=== PATIENT | female | born 1975 | race Caucasian/White ===

== ENCOUNTER 2018-01-31 13:25 | Inpatient (IN) ==
[2018-01-31 14:02] LABS: Bilirubin,Urine Negative (Negative); Blood,Urine Moderate (Negative); Clarity,Urine Clear (Clear); Color,Urine Yellow (Yellow); Glucose,Urine (UA) >=1000 mg/dL (Normal); Ketones,Urine >=160 mg/dL (Negative); Leukocyte Esterase,Urine Negative (Negative); Nitrite,Urine Negative (Negative); PH,Urine 5.5 pH Units (5.0-8.0); Protein,Urine >=300 mg/dL (Neg-Trace); Specific Gravity,Urine > 1.030 (1.010-1.025); Urobilinogen,Urine Normal (Normal)
[2018-01-31 14:04] LABS: Bacteria,Urine Few per hpf (None-Few); Hyaline Casts,Urine None Seen per lpf (None-Few); RBC,Urine 0-3 per hpf (0-3); Squamous Epithelial Cell,Urine Many per lpf (None-Few)
[2018-01-31] MEDS ORDERED: 0.9 % Sodium Chloride 1,000 ML IVC ONE ×2 (15:05→16:09)
[2018-01-31] MEDS ORDERED: *HR* HYDROcodone/Acet 5/325 mg TABLET PO ONE (15:05)
[2018-01-31] MEDS ORDERED: Ondansetron 4 MG/2 ML VIAL IVP ONE (15:05)
--- NOTE | 2018-01-31 15:08 | Emergency Department Note ---
Disposition Clinical Impression: Elevated platelet count, Leukocytosis, Pancreatitis, Diabetes Disposition: Admitted As Inpatient Condition: Fair Referrals: Ami Romero MD [Primary Care Provider] - Forms: ED Satisfaction Letter, Work/School Release Time of Disposition: 18:08 Abdominal Pain HPI - General Chief Complaint: ED Abdominal Pain Stated Complaint: abd pain Time Seen by Provider: 01/31/18 14:57 Source: patient Mode of arrival: ambulatory Limitations: no limitations Nursing Notes Reviewed: Yes Vital Signs Reviewed: Yes - History of Present Illness HPI Narrative: Patient presents emergency room with 3 days worth of nausea vomiting or abdominal pain. Patient has had this happen multiple times in the past secondary to chronic pancreatitis. Patient was a heavy drinker years ago but has not drank in over 5 years. Denies any recent illnesses fevers or chills. Currently denying chest pain, shortness of breath, headache or vision change. No diarrhea with the symptoms here today. She does not have any sick contacts. Pt Subjective Complaint: abdominal pain Onset (ago): day(s) Consistency: constant Location: epigastric Pain Severity: moderate Pain Scale: 10 Quality: aching Radiation: none Migration to: no migration Improves with: nothing Worsens with: other Associated symptoms: Reports: denies other symptoms Treatments prior to arrival: none - Related Data Home Medications Medication Instructions Recorded Confirmed Atorvastatin Calcium [Lipitor] 80 mg PO QPM 03/04/15 03/04/15 Cholecalciferol (Vitamin D3) 5,000 unit PO TID 03/04/15 03/04/15 [Vitamin D3] Docosahexanoic Acid/Epa [Fish Oil 1 each PO QAM 03/04/15 03/04/15 Concentrate Softgel] Empagliflozin [Jardiance] 10 mg PO QAM 03/04/15 03/04/15 Ezetimibe [Zetia] 10 mg PO QPM 03/04/15 03/04/15 Fenofibrate [Lofibra] 145 mg PO QPM 03/04/15 03/04/15 Gabapentin [Neurontin] 300 mg PO TID 03/04/15 03/04/15 Glimepiride [Amaryl] 2 mg PO QAM 03/04/15 03/04/15 HYDROcodone/Acet 5/325 mg [Happy 1 tab PO TID PRN 03/04/15 03/04/15 5-325 mg] LORazepam [Ativan] 0.5 mg PO BID PRN 03/04/15 03/04/15 Linagliptin [Tradjenta] 5 mg PO QAM 03/04/15 03/04/15 Lisinopril [Zestril] 20 mg PO QAM 03/04/15 03/04/15 Metoprolol [Lopressor] 50 mg PO BID 03/04/15 03/04/15 Mirtazapine [Remeron] 15 mg PO HS 03/04/15 03/04/15 Multivitamin/Iron/Folic Acid 1 each PO QAM 03/04/15 03/04/15 [Centrum Complete Multivit Tab] Omeprazole [PriLOSEC] 20 mg PO QAM 03/04/15 03/04/15 Venlafaxine HCl [Effexor Xr] 75 mg PO DAILY 03/04/15 03/04/15 Ziprasidone HCl [Geodon] 40 mg PO QAM 03/04/15 03/04/15 Ziprasidone HCl [Geodon] 60 mg PO 03/04/15 03/04/15 metFORMIN [Glucophage] 2,000 mg PO QPM 03/04/15 03/04/15 Previous Rx's Medication Instructions Recorded SUMAtriptan succinate [Imitrex] 25 mg PO PRN PRN #3 tablet 08/22/17 Allergies Allergy/AdvReac Type Severity Reaction Status Date / Time No Known Drug Allergies Allergy See Verified 03/04/15 10:49 Comments All systems ED: reviewed and negative except as stated. Review of Systems: As Per HPI Constitutional: Denies: fever, chills, weakness Cardiovascular: Denies: chest pain, palpitations, dyspnea on exertion, orthopnea Respiratory: Denies: cough, dyspnea, wheezes, hemoptysis Gastrointestinal: Reports: abdominal pain, nausea, vomiting. 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 Absent: scleral icterus, conjunctival injection, nystagmus - ENT ENT exam: normal exam, normal oropharynx, mucous membranes moist - Neck Neck exam: Present: normal inspection, full ROM, trachea midline - Chest Chest inspection: Present: normal inspection, symmetric chest wall rise - Respiratory Respiratory exam: Present: normal lung sounds bilaterally. Absent: respiratory distress, accessory muscle use - Cardiovascular Cardiovascular exam: Present: normal rhythm, tachycardia, normal heart sounds - Abdominal Exam Abdominal exam: Present: soft, tenderness, normal bowel sounds. Absent: Non- Tender, distention, guarding, rebound, rigidity - Extremities Exam Extremities exam: Present: normal inspection, full ROM, normal capillary refill. Absent: tenderness, pedal edema - Back Exam Back exam: Present: normal inspection, full ROM - Neurological Exam Neurological exam: Present: alert, oriented X3, CN II-XII intact, normal gait - Skin Skin exam: Present: warm, dry, intact, normal color Course Course Narrative: Patient seen and examined the time of arrival. See history of present illness. 42-year-old female presents to the emergency room with complaint of diffuse abdominal pain as well as nausea vomiting. Patient's had this happen multiple times the past when she has a pancreatitis flare up. She does describe a histor y of heavy alcohol abuse up until 5 years ago. She has not drank since then. She does not know any acute exacerbating factors. Currently she is denying fevers, chills, headache, vision changes, chest pain, shortness of breath. Denies any diarrhea. Patient is describing consistent symptoms with her previous diagnosis of pancreatitis. Labs: CBC chemistry lipase as well as liver function testing will be collected this time. EKG will also be collected secondary to a on description of a twinging sensation across her anterior chest wall yesterday. She has not had any symptoms like that since then. Patient is otherwise clinically stable. Vital signs are reviewed and are normal outside of tachycardia. Does not have any acute signs respiratory distress or other symptoms at this point. Patient will be monitored in emergency room the symptomatic control is completed disposition is determined. Otherwise the patient is in no distress. She is requesting to be discharged home if her labs and symptoms can be controlled. Physical exam shows clear lungs heart regular but tachycardic. Abdomen is soft with no point tenderness guarding or rigidity. She has no CVA tenderness. She does not describe any epigastric discomfort at this time. She has no cervical lymphadenopathy. Oropharynx is patent her trachea is midline and mucous membranes are moist. She denies any vaginal discharge bleeding or burning with urination. CBC chemistry and laboratory to be completed along with urinalysis and urine test. - Reevaluation(s) Reevaluation #1: Patient has a decreased sodium, decreased bicarbonate and an elevated glucose. Concern is noted for possible dehydration and diabetic ketoacidosis. Patient is there are had either of these 2 issues in the past. Will monitor closely and treat symptoms Time: 15:57 Reevaluation #2: At 1615 patient was concerning for possible infectious etiology. She has a significantly elevated white blood cell count, acidemia based on VBG and multiple electrolyte derangements. She does not meet criteria for diabetic ketoacidosis secondary to the normal serum ketones. Patient will be provided with 2 L of fluid as well as first dose of antibiotics covering for intra- abdominal pathology. Her lipase was greater than 1800. Is never been that high in the past. Disposition will be admission versus transfer dependent upon the findings on CT with IV contrast of the abdomen. Chest x-ray stable. Time: 16:22 Reevaluation #3: The hospitalist Dr. Lovett and I reviewed the case. He agreed with the patient's medical intervention management. Did recommend placing her on Lovenox and starting a DKA protocol secondary to the glucose with family that she could progress into that secondary to the pancreatitis. Also give the patient is single dose of aspirin covering for antiplatelet. Patient will be admitted for symptomatic control. No other acute etiology noted this time. Hematology Dr. Ramsay was contacted as well and agree with the projected management admission. Consult was placed to hematology at this time. Patient will be admitted for continuation of care and management. She will be monitoring emergency room until admission process is completed. 35 minutes of critical care provider the patient's treatment course secondary to multidisciplinary medical intervention and symptomatic management. Time: 18:07 Vital Signs Temperature 98.4 F 01/31/18 13:41 Pulse Rate 108 01/31/18 13:41 Respiratory Rate 16 01/31/18 13:41 Blood Pressure 167/100 01/31/18 13:41 O2 Sat by Pulse Oximetry 98 01/31/18 13:41 Temperature 99.9 F H 01/31/18 15:18 Pulse Rate 108 01/31/18 17:24 Respiratory Rate 20 01/31/18 17:24 Blood Pressure 135/68 01/31/18 17:24 O2 Sat by Pulse Oximetry 99 01/31/18 17:24 Oxygen Delivery Oxygen Delivery Room Air Abdominal Pain - MDM Narrative Medical decision making narrative: abdominal pain, chronic pancreatitis - Medical Records Medical records reviewed: Yes I reviewed the patient's medical records. - Lab Data Lab results reviewed: Yes I reviewed the patient's lab results. Result diagrams: 01/31/18 14:36 01/31/18 14:36 Lab Results 01/31/18 01/31/18 01/31/18 Range/Units 13:47 13:47 14:36 WBC 32.2 H* (4.3-11.1) K/mcL RBC 5.58 H (3.82-4.97) M/mcL Hgb 16.4 H (11.5-15.4) g/dL Hct 45.8 H (35.3-44.9) % MCV 82.1 L (83.0-100.0) fL MCH 29.4 (28.0-33.3) pg MCHC 35.8 H (31.6-35.5) g/dL RDW 15.1 H (11.5-14.5) % Plt Count 1470 H (140-400) K/mcL MPV 8.5 L (9.4-12.4) fL Immature Gran % 1.7 (0-4) % Seg Neutrophils % 72.2 % Lymphocytes % 16.6 % Monocytes % 9.0 % Eosinophils % 0.1 % Basophils % 0.4 % Neutrophils # 23.3 H (1.6-8.9) K/mcL Lymphocytes # 5.4 H (0.6-4.6) K/mcL Monocytes # 2.9 H (0.0-1.3) K/mcL Eosinophils # 0.0 (0.0-0.6) K/mcL Basophils # 0.1 (0.0-0.2) K/mcL Platelet Estimate Marked Increase H (Normal) VBG pH (7.32-7.42) pH Units VBG pCO2 (41-51) mmHg VBG pO2 (25-50) mmHg VBG HCO3 (21-27) mEq/L Sodium (136-145) mEq/L Potassium (3.5-5.1) mEq/L Chloride (98-107) mEq/L Carbon Dioxide (23-29) mEq/L BUN (6-20) mg/dL Creatinine (0.60-1.20) mg/dL Est GFR ( Amer) (> 60) Est GFR (Non-Af Amer) (> 60) BUN/Creatinine Ratio (6-26) Glucose (70-105) mg/dL Calculated Osmolality (280-300) Lactic Acid (0.5-2.2) mmol/L Calcium (8.6-10.3) mg/dL Total Bilirubin (0.3-1.0) mg/dL Direct Bilirubin (0.0-0.2) mg/dL Indirect Bilirubin (0.0-1.2) mg/dL AST (13-39) Units/L ALT (7-52) Units/L Alkaline Phosphatase (34-104) Units/L Serum Total Protein (6.4-8.9) g/dL Albumin (3.5-5.7) g/dL Globulin (2.4-3.5) g/dL Albumin/Globulin Ratio (1.1-2.2) Lipase (11-82) Units/L Beta-Hydroxybutyric Acd (0.02-0.27) mmol/L Urine Color Yellow (Yellow) Urine Clarity Clear (Clear) Urine pH 5.5 (5.0-8.0) pH Units Ur Specific Tarpley > 1.030 H (1.010-1.025) Urine Protein >=300 H (Neg-Trace) mg/dL Urine Glucose (UA) >=1000 H (Normal) mg/dL Urine Ketones >=160 H (Negative) mg/dL Urine Blood Moderate H (Negative) Urine Nitrite Negative (Negative) Urine Bilirubin Negative (Negative) Urine Urobilinogen Normal (Normal) mg/dL Ur Leukocyte Esterase Negative (Negative) Urine Microscopic RBC 0-3 (0-3) per hpf Urine Microscopic WBC 5-15 H (0-3) per hpf Ur Squamous Epith Cells Many H (None-Few) per lpf Urine Bacteria Few (None-Few) per hpf Hyaline Casts None Seen (None-Few) per lpf Ur Culture Indicated? NO (NO) Urine Test Negative (Negative) 01/31/18 01/31/18 01/31/18 Range/Units 14:36 16:00 16:13 WBC (4.3-11.1) K/mcL RBC (3.82-4.97) M/mcL Hgb (11.5-15.4) g/dL Hct (35.3-44.9) % MCV (83.0-100.0) fL MCH (28.0-33.3) pg MCHC (31.6-35.5) g/dL RDW (11.5-14.5) % Plt Count (140-400) K/mcL MPV (9.4-12.4) fL Immature Gran % (0-4) % Seg Neutrophils % % Lymphocytes % % Monocytes % % Eosinophils % % Basophils % % Neutrophils # (1.6-8.9) K/mcL Lymphocytes # (0.6-4.6) K/mcL Monocytes # (0.0-1.3) K/mcL Eosinophils # (0.0-0.6) K/mcL Basophils # (0.0-0.2) K/mcL Platelet Estimate (Normal) VBG pH 7.30 L (7.32-7.42) pH Units VBG pCO2 22 L (41-51) mmHg VBG pO2 110 H (25-50) mmHg VBG HCO3 11 L (21-27) mEq/L Sodium 124 L (136-145) mEq/L Potassium 5.1 (3.5-5.1) mEq/L Chloride 93 L (98-107) mEq/L Carbon Dioxide 10 L* (23-29) mEq/L BUN 11 (6-20) mg/dL Creatinine 0.88 (0.60-1.20) mg/dL Est GFR ( Amer) > 60 (> 60) Est GFR (Non-Af Amer) > 60 (> 60) BUN/Creatinine Ratio 13 (6-26) Glucose 425 H (70-105) mg/dL Calculated Osmolality 276 L (280-300) Lactic Acid (0.5-2.2) mmol/L Calcium 9.3 (8.6-10.3) mg/dL Total Bilirubin 0.4 (0.3-1.0) mg/dL Direct Bilirubin 0.1 (0.0-0.2) mg/dL Indirect Bilirubin 0.3 (0.0-1.2) mg/dL AST 17 (13-39) Units/L ALT 20 (7-52) Units/L Alkaline Phosphatase 89 (34-104) Units/L Serum Total Protein 10.3 H (6.4-8.9) g/dL Albumin 4.2 (3.5-5.7) g/dL Globulin 6.1 H (2.4-3.5) g/dL Albumin/Globulin Ratio 0.7 L (1.1-2.2) Lipase > 1800 H (11-82) Units/L Beta-Hydroxybutyric Acd 0.19 (0.02-0.27) mmol/L Urine Color (Yellow) Urine Clarity (Clear) Urine pH (5.0-8.0) pH Units Ur Specific Tarpley (1.010-1.025) Urine Protein (Neg-Trace) mg/dL Urine Glucose (UA) (Normal) mg/dL Urine Ketones (Negative) mg/dL Urine Blood (Negative) Urine Nitrite (Negative) Urine Bilirubin (Negative) Urine Urobilinogen (Normal) mg/dL Ur Leukocyte Esterase (Negative) Urine Microscopic RBC (0-3) per hpf Urine Microscopic WBC (0-3) per hpf Ur Squamous Epith Cells (None-Few) per lpf Urine Bacteria (None-Few) per hpf Hyaline Casts (None-Few) per lpf Ur Culture Indicated? (NO) Urine Test (Negative) 01/31/18 Range/Units 16:41 WBC (4.3-11.1) K/mcL RBC (3.82-4.97) M/mcL Hgb (11.5-15.4) g/dL Hct (35.3-44.9) % MCV (83.0-100.0) fL MCH (28.0-33.3) pg MCHC (31.6-35.5) g/dL RDW (11.5-14.5) % Plt Count (140-400) K/mcL MPV (9.4-12.4) fL Immature Gran % (0-4) % Seg Neutrophils % % Lymphocytes % % Monocytes % % Eosinophils % % Basophils % % Neutrophils # (1.6-8.9) K/mcL Lymphocytes # (0.6-4.6) K/mcL Monocytes # (0.0-1.3) K/mcL Eosinophils # (0.0-0.6) K/mcL Basophils # (0.0-0.2) K/mcL Platelet Estimate (Normal) VBG pH (7.32-7.42) pH Units VBG pCO2 (41-51) mmHg VBG pO2 (25-50) mmHg VBG HCO3 (21-27) mEq/L Sodium (136-145) mEq/L Potassium (3.5-5.1) mEq/L Chloride (98-107) mEq/L Carbon Dioxide (23-29) mEq/L BUN (6-20) mg/dL Creatinine (0.60-1.20) mg/dL Est GFR ( Amer) (> 60) Est GFR (Non-Af Amer) (> 60) BUN/Creatinine Ratio (6-26) Glucose (70-105) mg/dL Calculated Osmolality (280-300) Lactic Acid 0.9 (0.5-2.2) mmol/L Calcium (8.6-10.3) mg/dL Total Bilirubin (0.3-1.0) mg/dL Direct Bilirubin (0.0-0.2) mg/dL Indirect Bilirubin (0.0-1.2) mg/dL AST (13-39) Units/L ALT (7-52) Units/L Alkaline Phosphatase (34-104) Units/L Serum Total Protein (6.4-8.9) g/dL Albumin (3.5-5.7) g/dL Globulin (2.4-3.5) g/dL Albumin/Globulin Ratio (1.1-2.2) Lipase (11-82) Units/L Beta-Hydroxybutyric Acd (0.02-0.27) mmol/L Urine Color (Yellow) Urine Clarity (Clear) Urine pH (5.0-8.0) pH Units Ur Specific Tarpley (1.010-1.025) Urine Protein (Neg-Trace) mg/dL Urine Glucose (UA) (Normal) mg/dL Urine Ketones (Negative) mg/dL Urine Blood (Negative) Urine Nitrite (Negative) Urine Bilirubin (Negative) Urine Urobilinogen (Normal) mg/dL Ur Leukocyte Esterase (Negative) Urine Microscopic RBC (0-3) per hpf Urine Microscopic WBC (0-3) per hpf Ur Squamous Epith Cells (None-Few) per lpf Urine Bacteria (None-Few) per hpf Hyaline Casts (None-Few) per lpf Ur Culture Indicated? (NO) Urine Test (Negative) - Radiology Data Radiology results reviewed: Yes I reviewed the patient's radiology results. CT imaging of the abdomen shows diffuse pancreatitis with stranding around the pancreatic area. No signs of pseudocyst or aneurysm or mass. Chest x-ray is unremarkable. Imaging is reviewed by myself and confirmed by the radiologist - EKG Data EKG attestation: Yes I reviewed and interpreted this EKG. EKG results narrative: EKG shows sinus tachycardia. Ventricular rate of 109. SC interval 125. QRS duration of 92. QTC of 457. Slight low amplitude throughout the anterior and inferior leads. No acute signs of ST segment elevation or abnormality. No acute signs of WPW. Compared to EKG on 08/27/17 with no significant morphology changes at this time. Critical Care Time Critical Care Time: Yes Total Critical Care Time: 35 Attestation: Critical care performed: Time is exclusive of separately billable procedures. Time includes: direct patient care, patient reassessment, coordination of patient care, interpretation of data (laboratory data, radiology data, and respiratory data), review of patient's medical records, medical consultation and documentation of patient care. Procedures included in critical care time: Procedures excluded from critical care time:
[2018-01-31 15:51] LABS: Alanine Aminotransferase 20 Units/L (7-52); Albumin 4.2 g/dL (3.5-5.7); Albumin/Globulin Ratio 0.7 (1.1-2.2); Alkaline Phosphatase 89 Units/L (34-104); Aspartate Amino Transferase 17 Units/L (13-39); BUN/Creatinine Ratio 13 (6-26); Bilirubin,Direct 0.1 mg/dL (0.0-0.2); Bilirubin,Indirect 0.3 mg/dL (0.0-1.2); Bilirubin,Total 0.4 mg/dL (0.3-1.0); Blood Urea Nitrogen 11 mg/dL (6-20); Calcium 9.3 mg/dL (8.6-10.3); Carbon Dioxide 10 mEq/L (23-29); Chloride 93 mEq/L (98-107); Globulin 6.1 g/dL (2.4-3.5); Glucose 425 mg/dL (70-105); Osmolality,Calculated 276 (280-300); Potassium 5.1 mEq/L (3.5-5.1); Sodium 124 mEq/L (136-145); Total Protein 10.3 g/dL (6.4-8.9); eGFR For Non-African Americans > 60 (> 60)
[2018-01-31 16:10] LABS: Lipase > 1800 Units/L (11-82)
[2018-01-31] MEDS ORDERED: Isovue-370 500 ML INFUS..BTL IV ONE (16:12)
[2018-01-31] MEDS ORDERED: *HR* HYDROmorphone (PF) 1 MG/ML SYRINGE IVP ONE (16:13)
[2018-01-31 16:17] LABS: VBG HCO3 11 mEq/L (21-27); VBG PCO2 22 mmHg (41-51); VBG PO2 110 mmHg (25-50)
[2018-01-31 16:35] LABS: Basophils # 0.1 K/mcL (0.0-0.2); Basophils % 0.4 %; Eosinophils % 0.1 %; Hematocrit 45.8 % (35.3-44.9); Immature Granulocytes % 1.7 % (0-4); Lymphocytes # 5.4 K/mcL (0.6-4.6); Lymphocytes % 16.6 %; Mean Corpuscular Volume 82.1 fL (83.0-100.0); Mean Platelet Volume 8.5 fL (9.4-12.4); Monocytes # 2.9 K/mcL (0.0-1.3); Neutrophils # 23.3 K/mcL (1.6-8.9); Platelet Count 1470 K/mcL (140-400); Red Blood Count 5.58 M/mcL (3.82-4.97); Red Cell Distribution Width 15.1 % (11.5-14.5); Segmented Neutrophils % 72.2 %
[2018-01-31 16:36] LABS: Hemoglobin 16.4 g/dL (11.5-15.4); Mean Corpuscular HGB Conc 35.8 g/dL (31.6-35.5); Mean Corpuscular Hemoglobin 29.4 pg (28.0-33.3)
[2018-01-31 16:37] LABS: Platelet Estimate Marked Increase (Normal)
[2018-01-31] MEDS ORDERED: Piperacillin/Tazobactam 3.375 GM in 0.9 % Sodium Chloride Mini Bag 100 ML IVPB ONE (17:00)
[2018-01-31] MEDS ORDERED: *HR* Dextrose 50 % in Water (Syg) 50 ML SYRINGE IVP PRN (17:53)
[2018-01-31] MEDS ORDERED: Insulin Regular, Human 100 UNIT/ML IV PRN (17:53)
[2018-01-31] MEDS ORDERED: *HR* Enoxaparin 40 MG/0.4 ML SYRINGE SQ ONE (17:54)
[2018-01-31] MEDS ORDERED: Aspirin 81 MG TAB.CHEW PO STA (17:54)
[2018-01-31] MEDS ORDERED: D5% in 0.45% NACL w KCl 20 MEQ/1,000 ML MLS IVC PRN (18:52)
[2018-01-31] MEDS ORDERED: D5% in 0.45% NACL 1,000 ML IVC PRN (18:52)
[2018-01-31] MEDS ORDERED: Insulin Human Regular 100 UNIT in 0.9 % Sodium Chloride 100 ML IVC SCH (19:00)
--- NOTE | 2018-01-31 19:54 | Internal Med History&Physical ---
<Betsy Robertson - Last Filed: 01/31/18 20:43> Date of Encounter: 01/31/18 Time of Encounter: 19:52 Internal Medicine - H&P: HPI Chief complaint: Abdominal Pain Admitted From: Emergency Dept History of present illness: Ms. James is a 42 year old female with significant past medical history of hypertension and insulin dependent diabetes admitted from the ED for acute pancreatitis and DKA. According to the patient for the past three days she has not been feeling well. Three days ago she started having midepigastric abdominal pain. Yesterday she had one episode of non-bloody, non-bilious vomiting. Today she had multiple episodes of vomiting and worsening pain so she went into the ED for further evaluation. Patient states she is supposed to be taking insulin for her diabetes but has not taken it in over a year. At this time patient denies any pain. She states the medication she received in the ED completely resolved her abdominal pain. Patient denies any chest pain, shortness of breath, dizziness, or headache. Patient does disclose a remote history of alcoholism but she states she has not drank in over 6 years. Past Med Surg Social Fam HX - Past Medical History Attestation: Yes The following information was validated with the patient. Medical history: non-contributory, diabetes, hyperlipidemia, hypertension Additional medical history: ICH Psychiatric history: bipolar - Past Surgical History Surgical History: cholecystectomy, other Additional surgical history: Tubal ligation, carpal tunnel - Social History Smoking Status: Never smoker Smokeless Tobacco Status: No Alcohol use: none Drug use: none - Family History Maternal Grandmother Living Status: Hx Family Cardiac Disorders: Yes Hx Family Respiratory Disorders: Yes Hx Family Cancer: No Hx Family GI Disorders: No Hx Family Endocrine Disorder: Yes Hx Family Neuromuscular Disorders: No Hx Family Neurologic Disorders: No Hx Family HEENT Disorders: No Hx Family Autoimmune Disorders: No Internal Medicine - H&P: Meds Gabapentin [Neurontin] 300 mg PO TID 03/04/15 [History] Lisinopril [Zestril] 20 mg PO QAM 03/04/15 [History] Metoprolol [Lopressor] 50 mg PO BID 03/04/15 [History] Ziprasidone HCl [Geodon] 40 mg PO QAM 03/04/15 [History] Venlafaxine HCl [Venlafaxine HCl ER] 150 mg PO DAILY 01/31/18 [History] Ziprasidone HCl [Geodon] 60 mg PO HS 01/31/18 [History] raNITIdine HCl [Zantac] 150 mg PO BID 01/31/18 [History] Allergy/AdvReac Type Severity Reaction Status Date / Time No Known Drug Allergies Allergy See Verified 03/04/15 10:49 Comments All Systems PM: A 10-system review of systems was performed and is negative for pertinent findings except as documented above in the HPI. - Constitutional Constitutional: excessive sweating, night sweats, no fever(s), no falls - EENT Eyes: no discharge, no irritation, no loss of vision Ears: as per HPI Nose, mouth and throat: as per HPI - Breasts Breasts: as per HPI - Cardiovascular Cardiovascular ROS IM: no lightheadedness, no palpitations, no syncope - Respiratory Respiratory: no cough, no dyspnea - Gastrointestinal Gastrointestinal: abdominal pain, nausea, vomiting - Genitourinary Genitourinary: as per HPI Menstruation: as per HPI - Musculoskeletal Musculoskeletal ROS IM: as per HPI - Integumentary Integumentary IM: as per HPI - Neurological Neurological ROS: as per HPI - Psychiatric Psychiatric: as per HPI - Endocrine Endocrine IM: as per HPI - Hematologic/Lymphatic Hematologic/Lymphatic: as per HPI - Allergic/Immunologic Allergic/Immunologic: as per HPI - Constitutional Vitals: Temp Pulse Resp BP Pulse Ox 97.9 F 113 18 130/77 97 01/31/18 19:30 01/31/18 19:30 01/31/18 19:30 01/31/18 19:30 01/31/18 19:30 General appearance: Present: A&O X 3, pleasant, no acute distress Exam: Diaphoresis but otherwise well appearing - Head Head exam: Present: atraumatic, normal inspection - Eye Eye exam: Present: normal appearance. Absent: conjunctival injection, scleral icterus - ENT ENT exam: Present: mucous membranes dry - Neck Neck exam general surgery: Present: full ROM - Respiratory Respiratory exam: Present: CTAB. Absent: stridor, wheezes - Cardiovascular Cardiovascular exam: Present: tachycardia. Absent: irregular rhythm - GI/Abdominal GI/Abdominal exam: Present: soft. Absent: distended, guarding, tenderness - Extremities Exam Extremities exam: Present: full ROM, normal inspection, warm - Neurological Exam Neurological exam: Present: alert, oriented X3, no focal deficits - Psychiatric Psychiatric exam: Present: normal affect, normal mood - Skin Skin exam: Present: warm. Absent: rash Internal Med - H&P Results - Labs CBC & Chem 7: 01/31/18 14:36 01/31/18 14:36 Labs: Short CBC 01/31/18 Range/Units 14:36 WBC 32.2 H* (4.3-11.1) K/mcL Hgb 16.4 H (11.5-15.4) g/dL Hct 45.8 H (35.3-44.9) % Plt Count 1470 H (140-400) K/mcL Neutrophils # 23.3 H (1.6-8.9) K/mcL BMP 01/31/18 14:36 Sodium 124 L Potassium 5.1 Chloride 93 L Carbon Dioxide 10 L* BUN 11 Creatinine 0.88 Glucose 425 H Calcium 9.3 Liver Function 01/31/18 Range/Units 14:36 Total Bilirubin 0.4 (0.3-1.0) mg/dL Direct Bilirubin 0.1 (0.0-0.2) mg/dL AST 17 (13-39) Units/L ALT 20 (7-52) Units/L Alkaline Phosphatase 89 (34-104) Units/L Albumin 4.2 (3.5-5.7) g/dL Urine 01/31/18 Range/Units 13:47 Urine Color Yellow (Yellow) Urine Clarity Clear (Clear) Urine pH 5.5 (5.0-8.0) pH Units Ur Specific [place] > 1.030 H (1.010-1.025) Urine Protein >=300 H (Neg-Trace) mg/dL Urine Glucose (UA) >=1000 H (Normal) mg/dL - ABG Interpretation ABG results: 01/31/18 16:13 VBG pH 7.30 L VBG pCO2 22 L VBG pO2 110 H VBG HCO3 11 L - Impressions ITS Impressions Chest X-Ray 01/31/18 15:21 IMPRESSION: No acute process. D/ / Jenise Berman MD / Jenise Berman MD Interpreting Provider: Jenise Berman MD Abdomen/Pelvis CT 01/31/18 16:12 IMPRESSION: 1. Acute pancreatitis. No evidence of pseudocyst or abscess. 2. Secondary inflammation of the duodenum. There is also secondary mild biliary dilatation. 3. Borderline splenomegaly. A subtle low attenuating lesion likely represents a small cyst or hemangioma. 4. Periumbilical hernia containing peritoneal fat only. D/ / Jose Dc MD / oJse Dc MD Interpreting Provider: Jose Dc MD - Assessment and plan (1) Pancreatitis Current Visit: Yes Status: Acute Assessment and plan: Patient's lipase >1800. CT abdomen and pelvis completed and did not show any pseudocyst or abscess. Patient to received zosyn TID. Patient NPO at this time. Qualifiers: Chronicity: acute Pancreatitis type: unspecified pancreatitis type Acute pancreatitis complication: no infection or necrosis Qualified Code(s): K85.90 - Acute pancreatitis without necrosis or infection, unspecified (2) DKA (diabetic ketoacidoses) Current Visit: Yes Status: Acute Assessment and plan: Patient on insulin drip and fluids at this time. Will repeat BMP q2 hours until gap closes Qualifiers: Diabetes mellitus type: type 2 Diabetes mellitus complication detail: without coma Qualified Code(s): E11.10 - Type 2 diabetes mellitus with ketoacidosis without coma (3) Elevated platelet count Current Visit: Yes Status: Acute Assessment and plan: Patient was noted to have thrombocytosis in the ED. Oncology was contacted regarding this and they did not feel any intervention needed to be completed at this time. Will fluid resuscitate the patient and re-check labs (4) Leucocytosis Current Visit: Yes Status: Acute Assessment and plan: Patient's WBC 32.2. Patient is dehydrated. Will repeat CBC now and again at 4am to trend. Patient on zosyn TID. Qualifiers: Leukocytosis type: unspecified Qualified Code(s): D72.829 - Elevated white blood cell count, unspecified (5) Anxiety Current Visit: Yes Status: Chronic Assessment and plan: Hold patient's meds since she is NPO but will restart once patient can take PO (6) Bipolar 1 disorder Current Visit: Yes Status: Acute Assessment and plan: Hold patient's meds since she is NPO but will restart once patient can take PO (7) HTN (hypertension) Current Visit: Yes Status: Chronic Assessment and plan: Hold patient's meds since she is NPO but will restart once patient can take PO Qualifiers: Hypertension type: essential hypertension Qualified Code(s): I10 - Essential (primary) hypertension (8) DVT prophylaxis Current Visit: Yes Status: Acute Assessment and plan: SCDs due to patient's previous intracranial hemorrhage - Time Spent With Patient Total time spent is greater than 50% in coordination of care (as documented) at patient's floor/unit and/or counseling patient: <Shubham Fraga - Last Filed: 02/01/18 07:31> Date of Encounter: 02/01/18 Internal Medicine - H&P: HPI History of present illness: Ms. James is a 42 year old female All Systems PM: A 10-system review of systems was performed and is negative for pertinent findings except as documented above in the HPI. - Constitutional Vitals: Temp Pulse Resp BP Pulse Ox 98.0 F 86 19 135/71 98 02/01/18 03:13 02/01/18 05:00 02/01/18 05:00 02/01/18 05:00 02/01/18 05:00 Internal Med - H&P Results - Labs CBC & Chem 7: 02/01/18 04:48 02/01/18 06:14 Labs: Short CBC 01/31/18 01/31/18 02/01/18 Range/Units 14:36 21:02 04:48 WBC 32.2 H* 21.7 H 14.9 H (4.3-11.1) K/mcL Hgb 16.4 H 13.5 D 13.5 (11.5-15.4) g/dL Hct 45.8 H 38.8 36.8 (35.3-44.9) % Plt Count 1470 H 441 H D 382 (140-400) K/mcL Neutrophils # 23.3 H 15.2 H 11.0 H (1.6-8.9) K/mcL BMP 01/31/18 01/31/18 01/31/18 14:36 21:02 22:55 Sodium 124 L 126 L 130 L Potassium 5.1 4.2 4.3 Chloride 93 L 100 105 Carbon Dioxide 10 L* 13 L 18 L BUN 11 11 11 Creatinine 0.88 0.66 0.59 L Glucose 425 H 309 H 175 H Calcium 9.3 8.6 8.3 L 02/01/18 06:14 Sodium 126 L Potassium 4.7 Chloride 99 Carbon Dioxide 14 L BUN 8 Creatinine 0.47 L Glucose 271 H Calcium 8.5 L Liver Function 01/31/18 Range/Units 14:36 Total Bilirubin 0.4 (0.3-1.0) mg/dL Direct Bilirubin 0.1 (0.0-0.2) mg/dL AST 17 (13-39) Units/L ALT 20 (7-52) Units/L Alkaline Phosphatase 89 (34-104) Units/L Albumin 4.2 (3.5-5.7) g/dL Urine 01/31/18 Range/Units 13:47 Urine Color Yellow (Yellow) Urine Clarity Clear (Clear) Urine pH 5.5 (5.0-8.0) pH Units Ur Specific [place] > 1.030 H (1.010-1.025) Urine Protein >=300 H (Neg-Trace) mg/dL Urine Glucose (UA) >=1000 H (Normal) mg/dL - ABG Interpretation ABG results: 01/31/18 16:13 VBG pH 7.30 L VBG pCO2 22 L VBG pO2 110 H VBG HCO3 11 L - Impressions ITS Impressions Chest X-Ray 01/31/18 15:21 IMPRESSION: No acute process. D/ / Jenise Berman MD / Jenise Berman MD Interpreting Provider: Jenise Berman MD Abdomen/Pelvis CT 01/31/18 16:12 IMPRESSION: 1. Acute pancreatitis. No evidence of pseudocyst or abscess. 2. Secondary inflammation of the duodenum. There is also secondary mild biliary dilatation. 3. Borderline splenomegaly. A subtle low attenuating lesion likely represents a small cyst or hemangioma. 4. Periumbilical hernia containing peritoneal fat only. D/ / Jose Dc MD / Jose Dc MD Interpreting Provider: Jose Dc MD - Time Spent With Patient Total time spent is greater than 50% in coordination of care (as documented) at patient's floor/unit and/or counseling patient: - Attending Attestation I saw and evaluated the patient. I reviewed the residents note, performed my own physical examination and agree with findings and plan as documented in the residents note. Patient seen and examined on 01/31/18. Patient has elevated lipase of >1800, and elevations of WBCs, hemoglobin and platelets. Could be secondary to dehydration. Counts improved with IV fluids. Lipase decreased to 188 this morning. Patient stated that her abdominal pain improved after pain medication given. Anion gap closed this morning. Will initiate subcutaneous insulin and continue to monitor.
[2018-01-31] MEDS: 0.9 % Sodium Chloride w KCl 20 MEQ/1,000 ML MLS IVC SCH ×3 (20:24→23:20)
[2018-01-31 21:17] LABS: Basophils # 0.1 K/mcL (0.0-0.2); Basophils % 0.3 %; Eosinophils % 0.2 %; Hematocrit 38.8 % (35.3-44.9); Immature Granulocytes % 1.2 % (0-4); Lymphocytes # 4.9 K/mcL (0.6-4.6); Lymphocytes % 22.5 %; Mean Corpuscular Volume 80.7 fL (83.0-100.0); Mean Platelet Volume 9.1 fL (9.4-12.4); Monocytes # 1.3 K/mcL (0.0-1.3); Platelet Count 441 K/mcL (140-400); Red Blood Count 4.81 M/mcL (3.82-4.97); Segmented Neutrophils % 69.8 %
[2018-01-31 21:48] LABS: BUN/Creatinine Ratio 17 (6-26); Blood Urea Nitrogen 11 mg/dL (6-20); Calcium 8.6 mg/dL (8.6-10.3); Carbon Dioxide 13 mEq/L (23-29); Chloride 100 mEq/L (98-107); Glucose 309 mg/dL (70-105); Osmolality,Calculated 273 (280-300); Potassium 4.2 mEq/L (3.5-5.1); Sodium 126 mEq/L (136-145); eGFR For Non-African Americans > 60 (> 60)
[2018-01-31 22:01] LABS: Neutrophils # 15.2 K/mcL (1.6-8.9)
[2018-01-31 22:02] LABS: Mean Corpuscular Hemoglobin 28.2 pg (28.0-33.3)
[2018-01-31 22:03] LABS: Hemoglobin 13.5 g/dL (11.5-15.4); Mean Corpuscular HGB Conc 34.9 g/dL (31.6-35.5)
[2018-01-31 23:29] LABS: BUN/Creatinine Ratio 19 (6-26); Blood Urea Nitrogen 11 mg/dL (6-20); Calcium 8.3 mg/dL (8.6-10.3); Carbon Dioxide 18 mEq/L (23-29); Chloride 105 mEq/L (98-107); Glucose 175 mg/dL (70-105); Osmolality,Calculated 274 (280-300); Potassium 4.3 mEq/L (3.5-5.1); Sodium 130 mEq/L (136-145); eGFR For Non-African Americans > 60 (> 60)
[2018-02-01] MEDS ORDERED: D5% in Water 1,000 ML IVC PRN (00:07)
[2018-02-01] MEDS ORDERED: Dextrose Gel 15 GM/37.5 ML TUBE PO PRN ×2 (00:07)
[2018-02-01] MEDS: 0.9 % Sodium Chloride 1,000 ML IVC SCH ×3 (00:57→20:37)
[2018-02-01] MEDS: Piperacillin/Tazobactam 3.375 GM in 0.9 % Sodium Chloride Mini Bag 100 ML IVPB SCH ×3 (00:58→17:17)
[2018-02-01 05:01] LABS: Basophils # 0.1 K/mcL (0.0-0.2); Basophils % 0.3 %; Eosinophils # 0.1 K/mcL (0.0-0.6); Eosinophils % 0.8 %; Hematocrit 36.8 % (35.3-44.9); Hemoglobin 13.5 g/dL (11.5-15.4); Lymphocytes # 2.4 K/mcL (0.6-4.6); Lymphocytes % 15.9 %; Mean Corpuscular HGB Conc 36.7 g/dL (31.6-35.5); Mean Corpuscular Hemoglobin 29.5 pg (28.0-33.3); Mean Corpuscular Volume 80.5 fL (83.0-100.0); Mean Platelet Volume 9.8 fL (9.4-12.4); Monocytes # 1.2 K/mcL (0.0-1.3); Platelet Count 382 K/mcL (140-400); Red Blood Count 4.57 M/mcL (3.82-4.97); Red Cell Distribution Width 15.3 % (11.5-14.5)
[2018-02-01 07:05] LABS: BUN/Creatinine Ratio 17 (6-26); Blood Urea Nitrogen 8 mg/dL (6-20); Calcium 8.5 mg/dL (8.6-10.3); Carbon Dioxide 14 mEq/L (23-29); Chloride 99 mEq/L (98-107); Glucose 271 mg/dL (70-105); Osmolality,Calculated 270 (280-300); Potassium 4.7 mEq/L (3.5-5.1); Sodium 126 mEq/L (136-145); eGFR For Non-African Americans > 60 (> 60)
[2018-02-01] MEDS: Insulin LISPRO 300 UNITS/3 ML VIAL SQ SCH ×3 (07:53→17:16)
[2018-02-01] MEDS: Ibuprofen 600 MG TABLET PO PRN (09:15)
--- NOTE | 2018-02-01 09:18 | Oncology Inp Consult Note ---
Addendum entered and electronically signed by Annamaria Pope DO 02/04/18 08:39: I have seen and discussed the plan of care of this patient with attending physician. Original Note: <Annamaria Pope - Last Filed: 02/01/18 10:01> Date of Encounter: 02/01/18 Time of Encounter: 09:16 Assessment and Plan (1) Elevated platelet count Status: Chronic Assessment and plan: History of thrombocytosis dating back to 2016. Highest platelet count was noted to be 1470 on . Patient reports family history of leukemia in her uncle. she does not know of any other blood abnormalties that run in her family. CBC reveals leukocytosis, normal Hg with microcytosis. Etiology unclear at this time. Differentials include reactive process secondary to infection vs. pancreatitis, autoimmune etiology, malignancy, familial thrombocytosis. Plan: - Data of Consult Patient: new to practice Consult date: 02/01/18 Requesting Physician: Hope Lovett MD Primary Care Provider: Ami Romero MD - Consult Narrative Reason for consult: thrombocytosis History of present illness: 42-year-old female with past medical history of type II diabetes, hypertension, hyperlipidemia, GRD, morbid obesity, fibromyalgia, PMR, pancreatitis. Patient was admitted overnight for DKA and questionable pancreatitis. Ports history of alcohol abuse many years ago, but has not had anything to drink in about 6 years. She is supposed to be on metformin and insulin at home, but has not taken her medications and about a year. Patient states that for about 3 days she was having vomiting, epigastric abdominal pain. She denies fevers, chills, chest pain, shortness of breath. She reports history of heavy bleeding with her menstrual periods before getting D&C. She denies easy bruising. Family history significant for one of her uncles with leukemia. She does not know of any family members that have any other blood disorders. Past Med Surg Social Fam HX - Past Medical History Medical history: non-contributory, diabetes, hyperlipidemia, hypertension Additional medical history: ICH Psychiatric history: bipolar - Past Surgical History Surgical History: cholecystectomy, other Additional surgical history: Tubal ligation, carpal tunnel - Social History Smoking Status: Never smoker Smokeless Tobacco Status: No Alcohol use: none Drug use: none - Family History Maternal Grandmother Living Status: Hx Family Cardiac Disorders: Yes Hx Family Respiratory Disorders: Yes Hx Family Cancer: No Hx Family GI Disorders: No Hx Family Endocrine Disorder: Yes Hx Family Neuromuscular Disorders: No Hx Family Neurologic Disorders: No Hx Family HEENT Disorders: No Hx Family Autoimmune Disorders: No Medications and Allergies Gabapentin [Neurontin] 300 mg PO TID 03/04/15 [History] Lisinopril [Zestril] 20 mg PO QAM 03/04/15 [History] Metoprolol [Lopressor] 50 mg PO BID 03/04/15 [History] Ziprasidone HCl [Geodon] 40 mg PO QAM 03/04/15 [History] Venlafaxine HCl [Venlafaxine HCl ER] 150 mg PO DAILY 01/31/18 [History] Ziprasidone HCl [Geodon] 60 mg PO HS 01/31/18 [History] raNITIdine HCl [Zantac] 150 mg PO BID 01/31/18 [History] Allergy/AdvReac Type Severity Reaction Status Date / Time No Known Drug Allergies Allergy See Verified 03/04/15 10:49 Comments Constitutional: Present: as per HPI Eyes: Present: as per HPI Nose, mouth and throat: Present: as per HPI Breasts: Present: as per HPI Cardiovascular: Present: as per HPI Respiratory: Present: as per HPI Gastrointestinal: Present: as per HPI Genitourinary: Present: as per HPI Menstruation: as per HPI Musculoskeletal: Present: as per HPI Integumentary: Present: as per HPI Neurological: Present: as per HPI Psychiatric: Present: as per HPI Endocrine: Present: as per HPI Hematologic/Lymphatic: Present: as per HPI Allergic/Immunologic: Present: as per HPI Oncology - Exam - Constitutional General appearance: obese Exam: General: alert and oriented x3, obese, no acute distress. vital signs stable CV: RRR, no murmurs, rubs, gallops. Respiratory: clear to auscultation bilaterally. no rales, wheezing, or rhonchi. Abdomen: soft, non distended. Mild epigastric tenderness to palpation. Extremities: no cyanosis or edema. Consult Discharge Plan - Plan Referrals: Ami Romero MD [Primary Care Provider] - Inpatient Charges Provider: Dr. Kailee Ruggiero <Wendy Vega - Last Filed: 02/01/18 17:15> Date of Encounter: 02/01/18 - Data of Consult Requesting Physician: Hope Lovett MD Primary Care Provider: Ami Romero MD - Attending Attestation I examined this patient myself and reviewed the above history and physical exam findings, lab data assessment and plan with resident physician ,Niko Yin. I agree with the documented findings, disposition and treatment plan as described except to the extent set forth below. Patient came in with thrombocytosis, with history of pancreatitis, lab works had shown since 2003 leukocytosis and subsequently thrombocytosis. Her lab works has completely normalized except for mild leukocytosis that is likely reactive to abdominal findings. She has been extensively worked up in the past with a BCR ABL Mehdi 2 mutation, flow cytometry and was found negative for myeloproliferative disorder, lymphoproliferative disorder. Plan to follow-up any abnormal counts, imaging as an outpatient at later date. Inpatient Charges Provider: Dr. Neptali Vega Consult - Inpatient: [id number]
--- NOTE | 2018-02-01 09:24 | Internal Med Progress Note ---
Hospitalist Progress Note - Encounter Date of Encounter: 02/01/18 Time of Encounter: 09:20 - Exam Vitals: Temp Pulse Resp BP Pulse Ox 97.7 F 97 14 149/83 98 02/01/18 07:31 02/01/18 08:00 02/01/18 08:00 02/01/18 08:00 02/01/18 08:00 Exam: Gen - Awake, alert, oriented x 3, no acute distress HEENT - NCAT, PERRLA, EOMI, hearing grossly intact, oropharynx benign CV - RRR, normal S1 and S2, no M/R/G, no BLE edema Resp - Normal WOB, CTAB, no W/R/R GI - Soft, NT/ND, no masses, normal bowel sounds, Skin - Warm, dry, no rashes/lesions/ulcers Psych - Normal mood and affect, no depression or anxiety - Assessment and Plan (1) DKA (diabetic ketoacidoses) Current Visit: Yes Status: Acute Assessment and Plan: Patient comes in with DKA secondary to non compliance Has been weaned off insulin drip and transitioned to subcutaneous long and short acting insulin Monitor fingersticks (2) Pancreatitis Current Visit: Yes Status: Acute Assessment and Plan: Pt has recurrent pancreatitis with elevated triglyceride level in . Improved with insulin Resume diet. Gi recs appreciated for alf care and follow up (3) Leucocytosis Current Visit: Yes Status: Acute Assessment and Plan: Unclear etiology. Possibly dehydration but infectious causes cannot be ruled out Continue zosyn, follow up cultures. WBC trending down (4) Elevated platelet count Current Visit: Yes Status: Chronic Assessment and Plan: Repeat came back WNL. May be secondary to lab error (5) T2DM (type 2 diabetes mellitus) Current Visit: No Status: Chronic Assessment and Plan: see #1 DVT Prophylaxis: SCDs - Time Spent with Patient Total time spent is greater than 50% in coordination of care (as documented) at patient's floor/unit and/or counseling patient: Internal Medicine: Result - Labs CBC & Chem 7: 02/01/18 04:48 02/01/18 11:32 Labs: Short CBC 01/31/18 01/31/18 02/01/18 Range/Units 14:36 21:02 04:48 WBC 32.2 H* 21.7 H 14.9 H (4.3-11.1) K/mcL Hgb 16.4 H 13.5 D 13.5 (11.5-15.4) g/dL Hct 45.8 H 38.8 36.8 (35.3-44.9) % Plt Count 1470 H 441 H D 382 (140-400) K/mcL Neutrophils # 23.3 H 15.2 H 11.0 H (1.6-8.9) K/mcL BMP 01/31/18 01/31/18 01/31/18 14:36 21:02 22:55 Sodium 124 L 126 L 130 L Potassium 5.1 4.2 4.3 Chloride 93 L 100 105 Carbon Dioxide 10 L* 13 L 18 L BUN 11 11 11 Creatinine 0.88 0.66 0.59 L Glucose 425 H 309 H 175 H Calcium 9.3 8.6 8.3 L 02/01/18 06:14 Sodium 126 L Potassium 4.7 Chloride 99 Carbon Dioxide 14 L BUN 8 Creatinine 0.47 L Glucose 271 H Calcium 8.5 L Liver Function 01/31/18 Range/Units 14:36 Total Bilirubin 0.4 (0.3-1.0) mg/dL Direct Bilirubin 0.1 (0.0-0.2) mg/dL AST 17 (13-39) Units/L ALT 20 (7-52) Units/L Alkaline Phosphatase 89 (34-104) Units/L Albumin 4.2 (3.5-5.7) g/dL Urine 01/31/18 Range/Units 13:47 Urine Color Yellow (Yellow) Urine Clarity Clear (Clear) Urine pH 5.5 (5.0-8.0) pH Units Ur Specific [place] > 1.030 H (1.010-1.025) Urine Protein >=300 H (Neg-Trace) mg/dL Urine Glucose (UA) >=1000 H (Normal) mg/dL - Impressions Impressions Chest X-Ray 01/31/18 15:21 IMPRESSION: No acute process. D/ / Jenise Berman MD / Jenise Berman MD Interpreting Provider: Jenise Berman MD Abdomen/Pelvis CT 01/31/18 16:12 IMPRESSION: 1. Acute pancreatitis. No evidence of pseudocyst or abscess. 2. Secondary inflammation of the duodenum. There is also secondary mild biliary dilatation. 3. Borderline splenomegaly. A subtle low attenuating lesion likely represents a small cyst or hemangioma. 4. Periumbilical hernia containing peritoneal fat only. D/ / Jose Dc MD / Jose Dc MD Interpreting Provider: Jose Dc MD Consult Discharge Plan - Plan Referrals: Ami Romero MD [Primary Care Provider] - (1) DKA (diabetic ketoacidoses) Qualifiers: Diabetes mellitus type: type 2 Diabetes mellitus complication detail: without coma Qualified Code(s): E11.10 - Type 2 diabetes mellitus with ketoacidosis without coma (2) Pancreatitis Qualifiers: Chronicity: acute Pancreatitis type: unspecified pancreatitis type Acute pancreatitis complication: no infection or necrosis Qualified Code(s): K85.90 - Acute pancreatitis without necrosis or infection, unspecified (3) Leucocytosis Qualifiers: Leukocytosis type: unspecified Qualified Code(s): D72.829 - Elevated white blood cell count, unspecified (5) T2DM (type 2 diabetes mellitus) Qualifiers: Diabetes mellitus complication status: without complication Qualified Code(s): E11.9 - Type 2 diabetes mellitus without complications
[2018-02-01 12:54] LABS: Estimated Average Glucose 352 mg/dl; Hemoglobin A1C 13.9 %
[2018-02-01 12:55] LABS: BUN/Creatinine Ratio 17 (6-26); Blood Urea Nitrogen 10 mg/dL (6-20); Calcium 8.7 mg/dL (8.6-10.3); Carbon Dioxide 19 mEq/L (23-29); Chloride 99 mEq/L (98-107); Chol/HDL Ratio 28.6 (0-4.9); Cholesterol 429 mg/dL (< 200); Glucose 282 mg/dL (70-105); HDL Cholesterol 15 mg/dL (40-59); Osmolality,Calculated 273 (280-300); Potassium 4.4 mEq/L (3.5-5.1); Sodium 127 mEq/L (136-145); Triglycerides 2307 mg/dL (< 150); eGFR For Non-African Americans > 60 (> 60)
[2018-02-01] MEDS ORDERED: Insulin DETEMIR 100 UNIT/ML X5UNITS SQ ONE (12:56)
--- NOTE | 2018-02-01 17:39 | Electrocardiograph Report ---
[address] [place], [place] [address] Test Date: 2018-01-31 Pat Name: Roxane James Department: [id number] Room: 2A39 Gender: F Technology Lead: : 1975 Requested By: Jamie Merritt Order Number: [id number] Reading MD: Etienne Antonio Measurements Intervals [place] Rate: 109 P: 81 CA: 125 QRS: QRSD: 92 T: 61 QT: 339 QTc: 457 Interpretive Statements Sinus tachycardia Low voltage limb leads Probable left atrial enlargement Poor R wave progression Electronically Signed On 02-01-2018 17:38:06 EST by Etienne Antonio
[2018-02-01] MEDS ORDERED: Ziprasidone 20 MG CAPSULE PO SCH (21:00)
[2018-02-01] MEDS ORDERED: Insulin DETEMIR 100 UNIT/ML X5UNITS SQ SCH (21:00)
[2018-02-01] MEDS ORDERED: Insulin LISPRO 300 UNITS/3 ML VIAL SQ SCH ×2 (21:00)
[2018-02-02] MEDS: Piperacillin/Tazobactam 3.375 GM in 0.9 % Sodium Chloride Mini Bag 100 ML IVPB SCH (00:48)
[2018-02-02 04:21] LABS: Basophils % 0.5 %; Eosinophils # 0.2 K/mcL (0.0-0.6); Eosinophils % 2.8 %; Hematocrit 33.3 % (35.3-44.9); Immature Granulocytes % 0.6 % (0-4); Lymphocytes % 31.5 %; Mean Corpuscular HGB Conc 34.2 g/dL (31.6-35.5); Mean Corpuscular Hemoglobin 27.9 pg (28.0-33.3); Mean Corpuscular Volume 81.4 fL (83.0-100.0); Mean Platelet Volume 8.8 fL (9.4-12.4); Monocytes # 0.6 K/mcL (0.0-1.3); Monocytes % 9.6 %; Neutrophils # 3.5 K/mcL (1.6-8.9); Platelet Count 229 K/mcL (140-400); Red Blood Count 4.09 M/mcL (3.82-4.97); Red Cell Distribution Width 15.4 % (11.5-14.5)
[2018-02-02 04:43] LABS: BUN/Creatinine Ratio 18 (6-26); Blood Urea Nitrogen 8 mg/dL (6-20); Calcium 8.6 mg/dL (8.6-10.3); Carbon Dioxide 24 mEq/L (23-29); Chloride 101 mEq/L (98-107); Glucose 232 mg/dL (70-105); Hemoglobin 11.4 g/dL (11.5-15.4); Magnesium 1.8 mg/dL (1.6-2.6); Osmolality,Calculated 280 (280-300); Phosphorous 2.7 mg/dL (2.7-4.5); Potassium 3.7 mEq/L (3.5-5.1); Sodium 132 mEq/L (136-145); eGFR For Non-African Americans > 60 (> 60)
[2018-02-02] MEDS: Ibuprofen 600 MG TABLET PO PRN (05:42)
[2018-02-02] MEDS: 0.9 % Sodium Chloride 1,000 ML IVC SCH (05:44)
--- NOTE | 2018-02-02 07:53 | Discharge Summary ---
Orders not resulted at time of discharge: Pending orders 01/31/18 16:41 Culture,Blood [BC] Stat 02/03/18 04:00 Basic Metabolic Panel AM 0400 CBC [Complete Blood Count] [HEME] AM 0400 Magnesium AM 0400 Phosphorous AM 0400 02/04/18 04:00 Basic Metabolic Panel AM 0400 CBC [Complete Blood Count] [HEME] AM 0400 Magnesium AM 0400 Phosphorous AM 0400 02/05/18 04:00 Basic Metabolic Panel AM 0400 CBC [Complete Blood Count] [HEME] AM 0400 Magnesium AM 0400 Phosphorous AM 0400 02/06/18 04:00 Basic Metabolic Panel AM 0400 CBC [Complete Blood Count] [HEME] AM 0400 Magnesium AM 0400 Phosphorous AM 0400 02/07/18 04:00 Basic Metabolic Panel AM 0400 CBC [Complete Blood Count] [HEME] AM 0400 Magnesium AM 0400 Phosphorous AM 0400 Date of Encounter: 02/02/18 Time of Encounter: 07:50 - Discharge Diagnosis (1) DKA (diabetic ketoacidoses) Priority: Primary Status: Acute Assessment and Plan: 42 year old female with significant past medical history of hypertension and insulin dependent diabetes admitted from the ED for acute pancreatitis and DKA. According to the patient for the past three days she has not been feeling well. Three days ago she started having midepigastric abdominal pain. Yesterday she had one episode of non-bloody, non-bilious vomiting. Today she had multiple episodes of vomiting and worsening pain so she went into the ED for further evaluation. Patient states she is supposed to be taking insulin for her diabetes but has not taken it in over a year. At this time patient denies any pain. She states the medication she received in the ED completely resolved her abdominal pain She was assessed with DKA secondary to non compliance and acute pancreatitis secondary to hypertriglyceridemia. She was weaned off insulin drip and transitioned to subcutaneous long and short acting insulin. She was also seen by GI for hypertriglyceridemia and Gi recommended starting her on tricor. Will follow up with Gi and endocrine as an outpatient. 35minutes was spent dis charging this patient Qualifiers: Diabetes mellitus type: type 2 Diabetes mellitus complication detail: without coma Qualified Code(s): E11.10 - Type 2 diabetes mellitus with ketoacidosis without coma (2) Pancreatitis Priority: Primary Status: Acute Qualifiers: Chronicity: acute Pancreatitis type: unspecified pancreatitis type Acute pancreatitis complication: no infection or necrosis Qualified Code(s): K85.90 - Acute pancreatitis without necrosis or infection, unspecified (3) Leucocytosis Priority: Primary Status: Acute Qualifiers: Leukocytosis type: unspecified Qualified Code(s): D72.829 - Elevated white blood cell count, unspecified (4) Elevated platelet count Priority: Primary Status: Chronic (5) T2DM (type 2 diabetes mellitus) Priority: Primary Status: Acute Qualifiers: Diabetes mellitus complication status: with ketoacidosis Diabetes mellitus complication detail: without coma Qualified Code(s): E11.10 - Type 2 diabetes mellitus with ketoacidosis without coma; 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 James is a 42 year old female - Time Spent with Patient Total time spent providing and/or coordinating discharge services: - Discharge Medications Prescriptions: Fenofibrate Nanocrystallized [Tricor] 145 mg PO DAILY #30 tablet Insulin DETEMIR [Levemir] 20 unit SQ HS 30 Days #10 [id number] Insulin LISPRO [HumaLOG] 7 units SQ TIDAC 30 Days #10 vial Dafter-3/Dha/Epa/Fish Oil [Fish Oil 1,360 mg Softgel] 1 each PO DAILY #30 capsule Home Medications: Gabapentin [Neurontin] 300 mg PO TID 03/04/15 [History] Lisinopril [Zestril] 20 mg PO QAM 03/04/15 [History] Metoprolol [Lopressor] 50 mg PO BID 03/04/15 [History] Ziprasidone HCl [Geodon] 40 mg PO QAM 03/04/15 [History] Venlafaxine HCl [Venlafaxine HCl ER] 150 mg PO DAILY 01/31/18 [History] Ziprasidone HCl [Geodon] 60 mg PO HS 01/31/18 [History] raNITIdine HCl [Zantac] 150 mg PO BID 01/31/18 [History] Fenofibrate Nanocrystallized [Tricor] 145 mg PO DAILY #30 tablet 02/02/18 [Rx] Insulin DETEMIR [Levemir] 20 unit SQ HS 30 Days #10 [id number] 02/02/18 [Rx] Insulin LISPRO [HumaLOG] 7 units SQ TIDAC 30 Days #10 vial 02/02/18 [Rx] Dafter-3/Dha/Epa/Fish Oil [Fish Oil 1,360 mg Softgel] 1 each PO DAILY #30 capsule 02/02/18 [Rx] Allergies/Adverse Reactions: Allergy/AdvReac Type Severity Reaction Status Date / Time No Known Drug Allergies Allergy See Verified 03/04/15 10:49 Comments Date of admission: 02/01/18 07:23 Primary care physician: Ami Romero MD Consults: 01/31/18 17:31 Consult to Oncology Hematology [CONS] Stat Consulting Provider: Wendy Vega Reason for Consult: elevated platelets Call Completed: Yes 02/01/18 16:55 Consult to Gastroenterology [CONS] Routine Consulting Provider: [facility] [place] Reason for Consult: Recurrent pancreatitis with hypertriglyceridemia Call Completed: No - Constitutional Vitals: Temp Pulse Resp BP Pulse Ox 99 F 82 20 121/75 96 02/02/18 07:30 02/02/18 07:30 02/02/18 07:30 02/02/18 07:30 02/02/18 07:30 General appearance: Present: A&O X 3, pleasant, no acute distress Exam: Gen - Awake, alert, oriented x 3, no acute distress HEENT - NCAT, PERRLA, EOMI, hearing grossly intact, oropharynx benign CV - RRR, normal S1 and S2, no M/R/G, no BLE edema Resp - Normal WOB, CTAB, no W/R/R GI - Soft, NT/ND, no masses, normal bowel sounds, Skin - Warm, dry, no rashes/lesions/ulcers Psych - Normal mood and affect, no depression or anxiety - Patient Status Disposition: Home, Self-Care Condition: Fair - Discharge Instructions Instructions: Insulin Detemir (Injection), Insulin Lispro (Injection) Follow Up With: Ami Romero MD [Primary Care Provider] - 02/28/18 4:00 pm
[2018-02-02] MEDS: Insulin LISPRO 300 UNITS/3 ML VIAL SQ SCH (08:09)
[2018-02-02] MEDS ORDERED: Ziprasidone 20 MG CAPSULE PO SCH (09:00)
--- NOTE | 2018-02-02 09:00 | Gastroenterology Consult Note ---
Date of Encounter: 02/02/18 Time of Encounter: 09:30 - Assessment and plan (1) Recurrent acute pancreatitis Status: Acute Assessment and plan: The patient has a history of recurrent acute pancreatitis Etiology may be idiopathic versus hypertriglyceride. Patient does have history of cholecystectomy. She has remote history of alcoholism 6 years ago Presented with CT evidence of acute pancreatitis, lipase >1800. DKA on admission According the patient this is her fifth recurrence in the past 2 years She does admit to poor compliance with cholesterol and diabetes medications including insulin Lipase now 188, TG 2307 following cessation of insulin drip which was in place for DKA Patient symptoms have since resolved Recommendations Start Tricor 135mg Start Fish Oil high intensity Patient should follow up in outpatient clinic on 02/10/18 at 8:30am Patient should follow-up with Endocrinology as outpatient (2) Hypertriglyceridemia Status: Acute Assessment and plan: Hypertriglyceridemia with elevated total cholesterol and decreased HDL Triglycerides 2307 on lipid cascade The patient says that she was taking Lipitor until about a year ago however she stopped when she changed PCPs Additionally she has very poorly controlled diabetes mellitus, she says she stopped taking insulin about a year ago as well Part of this is due to transportation issues, and she says that she has been unable to get a doctor regularly (3) T2DM (type 2 diabetes mellitus) Status: Acute Assessment and plan: Poorly controlled diabetes mellitus type 2 with DKA on admission Patient has not been taking her insulin regularly Hemoglobin A1c 13.9 Qualifiers: Diabetes mellitus complication status: with ketoacidosis Diabetes mellitus complication detail: without coma Qualified Code(s): E11.10 - Type 2 diabetes mellitus with ketoacidosis without coma; 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 James is a 42 year old female with history of diabetes, remote alcoholism with plastering 6 years ago, and recurrent pancreatitis who presented to the ED with 4-5 days history of worsening abdominal pain and epigastric tenderness. The patient says that over the past couple of days she has had worsening pain which has also been associated with nausea and at the last couple of days worsening nausea and vomiting. In addition of this, the patient says that she has had a harder time eating food and taking by mouth intake in general. She says that this is a typical presentation for acute pancreatitis for her, and that she has had this multiple times in the past. In fact, she says that she has had acute pancreatitis 4-5 times in the past 2 years. She does admit to poor medication compliance, noting that she got a new PCP approximately one year ago and that she "forgot to tell him about multiple medications that she was on" previously, including her cholesterol medications and insulin. In addition of this, she apparently has had trouble getting to and from that Dr. due to transportation concerns, and as result she has not been getting her medications and taking them as scheduled. All of this together create a situation where her health rapidly declined over the course of several days and she ended up in the hospital. In the ED, the patient was found to have signs and symptoms of acute pancreatitis as well as DKA. She did have a mild acidosis with a pH of 7.3, as well as a very minimally elevated anion gap. In addition of this, CT of the abdomen and pelvis did demonstrate evidence of acute pancreatitis along with i nflammation of the duodenum and secondary mild biliary dilatation. The patient was started on an insulin drip and apparently her symptoms did resolve relatively quickly. Past Med Surg Social Fam HX - Past Medical History Medical history: non-contributory, diabetes, hyperlipidemia, hypertension Additional medical history: ICH Psychiatric history: bipolar - Past Surgical History Surgical History: cholecystectomy, other Additional surgical history: Tubal ligation, carpal tunnel - Social History Smoking Status: Never smoker Smokeless Tobacco Status: No Alcohol use: none Drug use: none - Family History Maternal Grandmother Living Status: Hx Family Cardiac Disorders: Yes Hx Family Respiratory Disorders: Yes Hx Family Cancer: No Hx Family GI Disorders: No Hx Family Endocrine Disorder: Yes Hx Family Neuromuscular Disorders: No Hx Family Neurologic Disorders: No Hx Family HEENT Disorders: No Hx Family Autoimmune Disorders: No Review of Systems: Constitutional: Denies fevers, chills, weight loss, generalized fatigue Head/Neck: Denies VILLEDA, neck stiffness EENT: Denies vision changes/blurriness, rhinorrhea, congestion, sore throat CVS: Denies chest pain, palpitations, PEREZ, orthopnea, edema, PND Pulm: Denies SOB, cough, sputum, hemoptysis, wheezing GI: Denies diarrhea, constipation, melena, hematemasis. Admits to nausea, vomiting, abdominal pain which has since resolved : Denies dysuria, increased frequency, urgency, hematuria Heme: Denies ease of bleeding or bruising MSK: Denies joint pain, limited ROM Skin: Denies rashes, ulcers, color changes Neuro: Denies VILLEDA, paresthesias, focal deficits, ataxia - Constitutional Vitals: Temp Pulse Resp BP Pulse Ox 99 F 82 20 121/75 96 02/02/18 07:30 02/02/18 07:30 02/02/18 07:30 02/02/18 07:30 02/02/18 08:14 Exam: Gen: Vitals noted. No acute distress. Eyes: anicteric sclerae, moist conjunctivae; no lid-lag; Pupils equal and reactive to light HENT: Atraumatic; oropharynx clear with moist mucous membranes and no mucosal ulcerations; normal hard and soft palate Neck: Trachea midline; supple, no thyromegaly or lymphadenopathy Cardiac: RRR, no murmur, +S1/S2 Pulmonary: CTA bilaterally, no wheezes, rales or rhonchi, equal chest expansion Abdomen: soft, nontender, no guarding. No masses or hepatosplenomegaly MSK: ROM intact, no joint swelling noted Extremities: no BLE edema, nontender calf, no cyanosis or clubbing Skin: Normal temperature, turgor and texture; no rash, ulcers or subcutaneous nodules Neuro: moves all extremities, no focal deficits. Psych: Appropriate mood and behavior. A&Ox3 Results - Labs CBC & Chem 7: 02/02/18 04:03 02/02/18 04:03 Labs: Last Result Calcium 8.6 mg/dL (8.6-10.3) 02/02/18 04:03 Triglycerides 2307 mg/dL (< 150) H 02/01/18 11:32 Entire Visit Hgb 11.4 g/dL (11.5-15.4) L D 02/02/18 04:03 Hct 33.3 % (35.3-44.9) L 02/02/18 04:03 Total Bilirubin 0.4 mg/dL (0.3-1.0) 01/31/18 14:36 AST 17 Units/L (13-39) 01/31/18 14:36 ALT 20 Units/L (7-52) 01/31/18 14:36 Lipase 188 Units/L (11-82) H 02/01/18 03:22 Consult Discharge Plan - Plan Instructions: Insulin Detemir (Injection), Insulin Lispro (Injection) Referrals: Ami Romero MD [Primary Care Provider] - 02/28/18 4:00 pm Prescriptions: Insulin DETEMIR [Levemir] 20 unit SQ HS 30 Days #10 [id number] Insulin LISPRO [HumaLOG] 7 units SQ TIDAC 30 Days #10 vial
[2018-02-02 10:28] VITALS: BP 133/72
== END 2018-02-02 11:44 | disposition home or self-care (01) | DRG 637 ==
LOC: ICNU 13:25 → EMEROOARM 13:25 → ICNU 19:30 → 2ANU 02-01 15:57
PROVIDERS: ADMIT Internal Medicine; ATTEND Internal Medicine

== ENCOUNTER 2018-02-12 16:05 | Inpatient (IN) ==
[2018-02-12] MEDS ORDERED: Ondansetron 4 MG/2 ML VIAL IVP ONE ×2 (16:12→21:34)
[2018-02-12] MEDS ORDERED: 0.9 % Sodium Chloride 1,000 ML IVC ONE (16:12)
[2018-02-12] MEDS ORDERED: *HR* FentaNYL (PF) 100 MCG/2 ML VIAL IVP ONE (16:14)
--- NOTE | 2018-02-12 16:18 | Emergency Department Note ---
Disposition Clinical Impression: Epigastric pain, Hyperglycemia, Hyponatremia Pancreatitis Qualifiers: Chronicity: acute Pancreatitis type: other Acute pancreatitis complication: unspecified Qualified Code(s): K85.80 - Other acute pancreatitis without necrosis or infection Disposition: Admitted As Inpatient Condition: Good Referrals: Ami Romero MD [Primary Care Provider] - Forms: ED Satisfaction Letter, Work/School Release Time of Disposition: 20:20 General Adult HPI - General Chief complaint: ED Abdominal Pain Stated complaint: hyperglycemia Time Seen by Provider: 02/12/18 16:12 Nursing Notes Reviewed: Yes Vital Signs Reviewed: Yes - History of Present Illness HPI Narrative: 42-year-old female presents from home via EMS for evaluation of epigastric abdominal pain and hyperglycemia. Patient is in some dependent diabetic with history of pancreatitis. She cannot afford her insulin and has not been using insulin for the past few days. Approximate one week ago, she was discharged from the hospital after treatment for pancreatitis. 4 days ago, she followed up outpatient with her primary care physician and was hyperglycemic to the mid 500s at that time. He advised her to come directly to the emergency department. She chose against this to stay with her family during the holidays. She presents today as she was instructed to present to the hospital 4 days ago. Today, patient has sharp stabbing epigastric pain that radiates caudad toward her umbilicus with associated nausea. Identical in character and severity to previous episodes of pancreatitis. She also noted she has elevated blood glucose. Abdominal surgical history: Cholecystectomy. Patient typically takes 10 units 3 times a day with 20 units at night. She is not aware of any correction schedule ROS: Positive: As above Negative: Fever, chills, vomiting, chest pains, palpitations, change in bowel habits, change in urinary habits, unusual back pain, dyspnea, diaphoresis - Related Data Home Medications Medication Instructions Recorded Confirmed Gabapentin [Neurontin] 300 mg PO TID 03/04/15 01/31/18 Lisinopril [Zestril] 20 mg PO QAM 03/04/15 01/31/18 Metoprolol [Lopressor] 50 mg PO BID 03/04/15 01/31/18 Ziprasidone HCl [Geodon] 40 mg PO QAM 03/04/15 01/31/18 Venlafaxine HCl [Venlafaxine HCl 150 mg PO DAILY 01/31/18 01/31/18 ER] Ziprasidone HCl [Geodon] 60 mg PO HS 01/31/18 01/31/18 raNITIdine HCl [Zantac] 150 mg PO BID 01/31/18 01/31/18 Previous Rx's Medication Instructions Recorded Fenofibrate Nanocrystallized 145 mg PO DAILY #30 tablet 02/02/18 [Tricor] Insulin DETEMIR [Levemir] 20 unit SQ HS 30 Days #10 [id number] 02/02/18 Insulin LISPRO [HumaLOG] 7 units SQ TIDAC 30 Days #10 vial 02/02/18 [place]-3/Dha/Epa/Fish Oil [Fish Oil 1 each PO DAILY #30 capsule 02/02/18 1,360 mg Softgel] Allergies Allergy/AdvReac Type Severity Reaction Status Date / Time No Known Drug Allergies Allergy See Verified 03/04/15 10:49 Comments All systems ED: reviewed and negative except as stated. 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 Head: atraumatic, normocephalic Eye: normal appearance, no scleral icterus, no conjunctival injection ENT: mucous membranes moist, normal external ear exam Neck: normal inspection, trachea midline, full ROM Chest: normal inspection, symmetric chest rise Respiratory: Good respiratory effort. Bilateral breath sounds are clear without wheezing, crackles, or rhonchi. Cardiovascular: Regular rate and rhythm. No clicks, rubs, gallops, or murmors. Normal heart sounds. Abdomen: Bowel sounds present normoactive. Abdomen is soft, nondistended. Epigastric tenderness. No guarding or rebound. Musculoskeletal: Spontaneously moving all extremities. Skin: warm, dry, intact. Neuro: GCS 15. No focal neurologic deficits observed. Psych: Patient's affect is appropriate for situation. Course Course Narrative: EKG dated 02/12/2018 at 16:27 interpreted as sinus rhythm with a rate of 79. OR 145, para 77, QTC 439. Normal axis. Nonspecific ST-T changes. Compared to previous EKG dated 01/31/2018 showing no acute ischemic changes in comparison. Serum hematology shows leukocytosis. Serum chemistry shows hypernatremia. Serum osmolality is low. Patient clinically appears euvolemic though she is subjectively thirsty. Patient has received 1 L of IV fluids. Urine sodium and urine creatinine are pending. Patient's lipase is mildly elevated. Concern for chronic pancreatitis. Patient's blood glucose is elevated in 300s. Her hyponatremia is low enough that this is not pseudohyponatremia. I discussed the above the patient. She is agreeable to admission for continued evaluation monitoring. Next I discussed the above with the admitting hospitalists. They are agreeable to accept the patient for hyponatremia, hyperglycemia, chronic pancreatitis. Urine sodium and urine creatinine are pending. Repeat BMP to evaluate sodium after 1 L IVF is pending. Vital Signs Temperature 97.6 F 02/12/18 16:12 Pulse Rate 88 02/12/18 16:12 Respiratory Rate 14 02/12/18 16:12 Blood Pressure 139/87 02/12/18 16:12 O2 Sat by Pulse Oximetry 96 02/12/18 16:12 Temperature 97.6 F 02/12/18 16:12 Pulse Rate 88 02/12/18 16:12 Respiratory Rate 14 02/12/18 16:12 Blood Pressure 139/87 02/12/18 16:12 O2 Sat by Pulse Oximetry 96 02/12/18 16:12 Oxygen Delivery Oxygen Delivery Room Air Medical Decision Making - Lab Data Result diagrams: 02/12/18 17:48 02/12/18 17:48 Lab Results 02/12/18 02/12/18 02/12/18 Range/Units 17:20 17:48 17:48 WBC (4.3-11.1) K/mcL RBC (3.82-4.97) M/mcL Hgb (11.5-15.4) g/dL Hct (35.3-44.9) % MCV (83.0-100.0) fL MCH (28.0-33.3) pg MCHC (31.6-35.5) g/dL RDW (11.5-14.5) % Plt Count (140-400) K/mcL MPV (9.4-12.4) fL Immature Gran % (0-4) % Seg Neutrophils % % Lymphocytes % % Monocytes % % Eosinophils % % Basophils % % Neutrophils # (1.6-8.9) K/mcL Lymphocytes # (0.6-4.6) K/mcL Monocytes # (0.0-1.3) K/mcL Eosinophils # (0.0-0.6) K/mcL Basophils # (0.0-0.2) K/mcL Sodium (136-145) mEq/L Potassium (3.5-5.1) mEq/L Chloride (98-107) mEq/L Carbon Dioxide (23-29) mEq/L BUN (6-20) mg/dL Creatinine (0.60-1.20) mg/dL Est GFR ( Amer) (> 60) Est GFR (Non-Af Amer) (> 60) BUN/Creatinine Ratio (6-26) Glucose (70-105) mg/dL Est Mean Plasma Glucose mg/dl Hemoglobin A1c ( - 5.6) % Calculated Osmolality (280-300) Lactic Acid 2.3 H (0.5-2.2) mmol/L Calcium (8.6-10.3) mg/dL Total Bilirubin (0.3-1.0) mg/dL Direct Bilirubin (0.0-0.2) mg/dL Indirect Bilirubin (0.0-1.2) mg/dL AST (13-39) Units/L ALT (7-52) Units/L Alkaline Phosphatase (34-104) Units/L Troponin I < 0.03 (< 0.04) ng/mL Serum Total Protein (6.4-8.9) g/dL Albumin (3.5-5.7) g/dL Globulin (2.4-3.5) g/dL Albumin/Globulin Ratio (1.1-2.2) Lipase (11-82) Units/L Urine Color Yellow (Yellow) Urine Clarity Clear (Clear) Urine pH 6.0 (5.0-8.0) pH Units Ur Specific [place] > 1.030 H (1.010-1.025) Urine Protein Negative (Neg-Trace) mg/dL Urine Glucose (UA) >=1000 H (Normal) mg/dL Urine Ketones Negative (Negative) mg/dL Urine Blood Negative (Negative) Urine Nitrite Negative (Negative) Urine Bilirubin Negative (Negative) Urine Urobilinogen Normal (Normal) mg/dL Ur Leukocyte Esterase Negative (Negative) Ur Culture Indicated? NO (NO) 02/12/18 02/12/18 02/12/18 Range/Units 17:48 17:48 17:48 WBC 20.4 H (4.3-11.1) K/mcL RBC 4.50 (3.82-4.97) M/mcL Hgb 15.4 (11.5-15.4) g/dL Hct 35.4 (35.3-44.9) % MCV 78.7 L (83.0-100.0) fL MCH 34.2 H (28.0-33.3) pg MCHC 43.5 H (31.6-35.5) g/dL RDW 14.4 (11.5-14.5) % Plt Count 539 H (140-400) K/mcL MPV 9.0 L (9.4-12.4) fL Immature Gran % 1.6 (0-4) % Seg Neutrophils % 61.4 % Lymphocytes % 23.9 % Monocytes % 11.4 % Eosinophils % 1.2 % Basophils % 0.5 % Neutrophils # 12.5 H (1.6-8.9) K/mcL Lymphocytes # 4.9 H (0.6-4.6) K/mcL Monocytes # 2.3 H (0.0-1.3) K/mcL Eosinophils # 0.2 (0.0-0.6) K/mcL Basophils # 0.1 (0.0-0.2) K/mcL Sodium 122 L (136-145) mEq/L Potassium 4.0 (3.5-5.1) mEq/L Chloride 94 L (98-107) mEq/L Carbon Dioxide 22 L (23-29) mEq/L BUN 14 (6-20) mg/dL Creatinine 0.40 L (0.60-1.20) mg/dL Est GFR ( Amer) > 60 (> 60) Est GFR (Non-Af Amer) > 60 (> 60) BUN/Creatinine Ratio 35 H (6-26) Glucose 322 H (70-105) mg/dL Est Mean Plasma Glucose 349 mg/dl Hemoglobin A1c 13.8 H ( - 5.6) % Calculated Osmolality 267 L (280-300) Lactic Acid (0.5-2.2) mmol/L Calcium 7.8 L (8.6-10.3) mg/dL Total Bilirubin 0.2 L (0.3-1.0) mg/dL Direct Bilirubin 0.0 (0.0-0.2) mg/dL Indirect Bilirubin 0.2 (0.0-1.2) mg/dL AST 13 (13-39) Units/L ALT 16 (7-52) Units/L Alkaline Phosphatase 97 (34-104) Units/L Troponin I (< 0.04) ng/mL Serum Total Protein 5.8 L (6.4-8.9) g/dL Albumin 3.2 L (3.5-5.7) g/dL Globulin 2.6 (2.4-3.5) g/dL Albumin/Globulin Ratio 1.2 (1.1-2.2) Lipase 106 H (11-82) Units/L Urine Color (Yellow) Urine Clarity (Clear) Urine pH (5.0-8.0) pH Units Ur Specific [place] (1.010-1.025) Urine Protein (Neg-Trace) mg/dL Urine Glucose (UA) (Normal) mg/dL Urine Ketones (Negative) mg/dL Urine Blood (Negative) Urine Nitrite (Negative) Urine Bilirubin (Negative) Urine Urobilinogen (Normal) mg/dL Ur Leukocyte Esterase (Negative) Ur Culture Indicated? (NO) Attestation Statement - Attestation Attestation: I, Jamie Merritt DO, examined this patient [id number] and my medical de cision-making was reviewed with Dr. Juan Carlos Hernández, Resident Physician. I agree with the documented findings, disposition and treatment plan as described except to the extent set forth below. Please see my progress notes for details.
--- NOTE | 2018-02-12 16:40 | Emergency Department Note ---
Disposition Clinical Impression: Epigastric pain, Hyperglycemia, Hyponatremia Pancreatitis Qualifiers: Chronicity: acute Pancreatitis type: other Acute pancreatitis complication: unspecified Qualified Code(s): K85.80 - Other acute pancreatitis without necrosis or infection Disposition: Admitted As Inpatient Condition: Good Referrals: Ami Romero MD [Primary Care Provider] - Forms: ED Satisfaction Letter, Work/School Release Time of Disposition: 21:12 General Adult HPI - General Chief complaint: ED Abdominal Pain Stated complaint: hyperglycemia Time Seen by Provider: 02/12/18 16:12 Source: patient Limitations: no limitations - History of Present Illness Pain Scale: 5 - Related Data Home Medications Medication Instructions Recorded Confirmed Gabapentin [Neurontin] 300 mg PO TID 03/04/15 01/31/18 Lisinopril [Zestril] 20 mg PO QAM 03/04/15 01/31/18 Metoprolol [Lopressor] 50 mg PO BID 03/04/15 01/31/18 Ziprasidone HCl [Geodon] 40 mg PO QAM 03/04/15 01/31/18 Venlafaxine HCl [Venlafaxine HCl 150 mg PO DAILY 01/31/18 01/31/18 ER] Ziprasidone HCl [Geodon] 60 mg PO HS 01/31/18 01/31/18 raNITIdine HCl [Zantac] 150 mg PO BID 01/31/18 01/31/18 Previous Rx's Medication Instructions Recorded Fenofibrate Nanocrystallized 145 mg PO DAILY #30 tablet 02/02/18 [Tricor] Insulin DETEMIR [Levemir] 20 unit SQ HS 30 Days #10 [id number] 02/02/18 Insulin LISPRO [HumaLOG] 7 units SQ TIDAC 30 Days #10 vial 02/02/18 [place]-3/Dha/Epa/Fish Oil [Fish Oil 1 each PO DAILY #30 capsule 02/02/18 1,360 mg Softgel] Allergies Allergy/AdvReac Type Severity Reaction Status Date / Time No Known Drug Allergies Allergy See Verified 03/04/15 10:49 Comments Past Medical History - Past Medical History Medical history: Reports: non-contributory, diabetes, hyperlipidemia, hypertension Surgical history: Reports: cholecystectomy, other Psychiatric history: Reports: bipolar [employer]ER history: Reports: bilateral tubal ligation - Social History Smoking Status: Never smoker Smokeless Tobacco Status: No Alcohol use: Reports: none Drug use: Reports: none Physical Exam - General Limitations: no limitations General appearance: alert Course Vital Signs Temperature 97.6 F 02/12/18 16:12 Pulse Rate 88 02/12/18 16:12 Respiratory Rate 14 02/12/18 16:12 Blood Pressure 139/87 02/12/18 16:12 O2 Sat by Pulse Oximetry 96 02/12/18 16:12 Temperature 97.6 F 02/12/18 16:12 Pulse Rate 88 02/12/18 16:12 Respiratory Rate 14 02/12/18 16:12 Blood Pressure 139/87 02/12/18 16:12 O2 Sat by Pulse Oximetry 96 02/12/18 16:12 Oxygen Delivery Oxygen Delivery Room Air Medical Decision Making - Lab Data Result diagrams: 02/12/18 17:48 02/12/18 17:48 Lab Results 02/12/18 02/12/18 02/12/18 Range/Units 17:20 17:48 17:48 WBC (4.3-11.1) K/mcL RBC (3.82-4.97) M/mcL Hgb (11.5-15.4) g/dL Hct (35.3-44.9) % MCV (83.0-100.0) fL MCH (28.0-33.3) pg MCHC (31.6-35.5) g/dL RDW (11.5-14.5) % Plt Count (140-400) K/mcL MPV (9.4-12.4) fL Immature Gran % (0-4) % Seg Neutrophils % % Lymphocytes % % Monocytes % % Eosinophils % % Basophils % % Neutrophils # (1.6-8.9) K/mcL Lymphocytes # (0.6-4.6) K/mcL Monocytes # (0.0-1.3) K/mcL Eosinophils # (0.0-0.6) K/mcL Basophils # (0.0-0.2) K/mcL Sodium (136-145) mEq/L Potassium (3.5-5.1) mEq/L Chloride (98-107) mEq/L Carbon Dioxide (23-29) mEq/L BUN (6-20) mg/dL Creatinine (0.60-1.20) mg/dL Est GFR ( Amer) (> 60) Est GFR (Non-Af Amer) (> 60) BUN/Creatinine Ratio (6-26) Glucose (70-105) mg/dL Est Mean Plasma Glucose mg/dl Hemoglobin A1c ( - 5.6) % Calculated Osmolality (280-300) Lactic Acid 2.3 H (0.5-2.2) mmol/L Calcium (8.6-10.3) mg/dL Total Bilirubin (0.3-1.0) mg/dL Direct Bilirubin (0.0-0.2) mg/dL Indirect Bilirubin (0.0-1.2) mg/dL AST (13-39) Units/L ALT (7-52) Units/L Alkaline Phosphatase (34-104) Units/L Troponin I < 0.03 (< 0.04) ng/mL Serum Total Protein (6.4-8.9) g/dL Albumin (3.5-5.7) g/dL Globulin (2.4-3.5) g/dL Albumin/Globulin Ratio (1.1-2.2) Lipase (11-82) Units/L Urine Color Yellow (Yellow) Urine Clarity Clear (Clear) Urine pH 6.0 (5.0-8.0) pH Units Ur Specific [place] > 1.030 H (1.010-1.025) Urine Protein Negative (Neg-Trace) mg/dL Urine Glucose (UA) >=1000 H (Normal) mg/dL Urine Ketones Negative (Negative) mg/dL Urine Blood Negative (Negative) Urine Nitrite Negative (Negative) Urine Bilirubin Negative (Negative) Urine Urobilinogen Normal (Normal) mg/dL Ur Leukocyte Esterase Negative (Negative) Ur Culture Indicated? NO (NO) 02/12/18 02/12/18 02/12/18 Range/Units 17:48 17:48 17:48 WBC 20.4 H (4.3-11.1) K/mcL RBC 4.50 (3.82-4.97) M/mcL Hgb 15.4 (11.5-15.4) g/dL Hct 35.4 (35.3-44.9) % MCV 78.7 L (83.0-100.0) fL MCH 34.2 H (28.0-33.3) pg MCHC 43.5 H (31.6-35.5) g/dL RDW 14.4 (11.5-14.5) % Plt Count 539 H (140-400) K/mcL MPV 9.0 L (9.4-12.4) fL Immature Gran % 1.6 (0-4) % Seg Neutrophils % 61.4 % Lymphocytes % 23.9 % Monocytes % 11.4 % Eosinophils % 1.2 % Basophils % 0.5 % Neutrophils # 12.5 H (1.6-8.9) K/mcL Lymphocytes # 4.9 H (0.6-4.6) K/mcL Monocytes # 2.3 H (0.0-1.3) K/mcL Eosinophils # 0.2 (0.0-0.6) K/mcL Basophils # 0.1 (0.0-0.2) K/mcL Sodium 122 L (136-145) mEq/L Potassium 4.0 (3.5-5.1) mEq/L Chloride 94 L (98-107) mEq/L Carbon Dioxide 22 L (23-29) mEq/L BUN 14 (6-20) mg/dL Creatinine 0.40 L (0.60-1.20) mg/dL Est GFR ( Amer) > 60 (> 60) Est GFR (Non-Af Amer) > 60 (> 60) BUN/Creatinine Ratio 35 H (6-26) Glucose 322 H (70-105) mg/dL Est Mean Plasma Glucose 349 mg/dl Hemoglobin A1c 13.8 H ( - 5.6) % Calculated Osmolality 267 L (280-300) Lactic Acid (0.5-2.2) mmol/L Calcium 7.8 L (8.6-10.3) mg/dL Total Bilirubin 0.2 L (0.3-1.0) mg/dL Direct Bilirubin 0.0 (0.0-0.2) mg/dL Indirect Bilirubin 0.2 (0.0-1.2) mg/dL AST 13 (13-39) Units/L ALT 16 (7-52) Units/L Alkaline Phosphatase 97 (34-104) Units/L Troponin I (< 0.04) ng/mL Serum Total Protein 5.8 L (6.4-8.9) g/dL Albumin 3.2 L (3.5-5.7) g/dL Globulin 2.6 (2.4-3.5) g/dL Albumin/Globulin Ratio 1.2 (1.1-2.2) Lipase 106 H (11-82) Units/L Urine Color (Yellow) Urine Clarity (Clear) Urine pH (5.0-8.0) pH Units Ur Specific Denio (1.010-1.025) Urine Protein (Neg-Trace) mg/dL Urine Glucose (UA) (Normal) mg/dL Urine Ketones (Negative) mg/dL Urine Blood (Negative) Urine Nitrite (Negative) Urine Bilirubin (Negative) Urine Urobilinogen (Normal) mg/dL Ur Leukocyte Esterase (Negative) Ur Culture Indicated? (NO) Attestation Statement - Attestation Attestation: I, Jamie Merritt DO, examined this patient [id number] and my medical deci angela-making was reviewed with Dr. Juan Carlos Hernández, Resident Physician. I agree with the documented findings, disposition and treatment plan as described except to the extent set forth below. Please see my progress notes for details. 41-year-old female presents emergency room for evaluation of abdominal pain and epigastric discomfort. She has a history of pancreatitis. Denies any falls trauma or injury. She is noncompliant with all of her medication secondary to not have any money to fill the prescriptions. She has prescriptions for all of her medications. Denies any fevers or chills. Denies any nausea vomiting or diarrhea. Denies any headache or vision change. Patient is otherwise alert oriented speaking full sentences. She does not appear to be in any distress. During transport vital signs are stable. Accu-Chek was collected and does read as high. Images greater than 600 based on the EMS transport. On arrival here the patient is sitting in the bed speaking in full sentences lungs are clear heart is regular. Does have mild epigastric discomfort with no point tenderness guarding or rigidity. Lungs are clear to auscultation heart is regular. No pulsatile masses or lesions noted in the abdomen. Extremities appear to be normal. Pulses are intact. Screening labs for pancreatitis, diabetic ketoacidosis, underlying cardiac or metabolic related issues will be completed here in the department. Patient has no traumatic injuries necessitate any further imaging or workup. Chest x-ray will be added on as well further evaluation. EKG will be collected and resulted. Disposition pending the full workup and treatment course. Expect patient will be other discharge home as long as her are no significant lab derangements noted during the evaluation. Patient is comfortable with this plan. We will continue monitor here until treatment course has been established. See detailed documentation the physical exam, medical intervention, medical decision-making and disposition in the resident physician's note. No critical care provider the patient's treatment course at this time 2015 Patient found to have a sodium of 122. Multiple lab derangements are noted most likely consistent with diabetes. Patient also has a lipase of 106. Concern for pancreatitis secondary to diabetic-related issues is known as well. Symptoms have been controlled here. CT imaging the abdomen was not warranted initially on evaluation. The remainder the chest x-ray EKG and labs are unremarkable. Fluids nausea medication have been given. Patient will be admitted for continua tion of care. Hospitalist was contacted in detailed review the presentation symptoms were discussed. No other recommendations or concerns noted this time. Patient is otherwise clinically stable to time of admission. Patient will be a monitor in emergency room until admission processes established
[2018-02-12 18:05] LABS: Basophils % 0.5 %
[2018-02-12 18:05] LABS: Bilirubin,Urine Negative (Negative); Blood,Urine Negative (Negative); Clarity,Urine Clear (Clear); Glucose,Urine (UA) >=1000 mg/dL (Normal); Ketones,Urine Negative (Negative); Leukocyte Esterase,Urine Negative (Negative); Nitrite,Urine Negative (Negative); Protein,Urine Negative (Neg-Trace); Specific Gravity,Urine > 1.030 (1.010-1.025); Urobilinogen,Urine Normal (Normal)
[2018-02-12 18:07] LABS: Basophils # 0.1 K/mcL (0.0-0.2); Eosinophils % 1.2 %; Hematocrit 35.4 % (35.3-44.9); Immature Granulocytes % 1.6 % (0-4); Lymphocytes # 4.9 K/mcL (0.6-4.6); Lymphocytes % 23.9 %; Mean Corpuscular Volume 78.7 fL (83.0-100.0); Monocytes # 2.3 K/mcL (0.0-1.3); Monocytes % 11.4 %; Neutrophils # 12.5 K/mcL (1.6-8.9); Platelet Count 539 K/mcL (140-400); Red Cell Distribution Width 14.4 % (11.5-14.5); Segmented Neutrophils % 61.4 %
[2018-02-12 18:08] LABS: Color,Urine Yellow (Yellow)
[2018-02-12 18:39] LABS: Eosinophils # 0.2 K/mcL (0.0-0.6)
[2018-02-12 18:40] LABS: Hemoglobin 15.4 g/dL (11.5-15.4)
[2018-02-12 18:41] LABS: Mean Corpuscular Hemoglobin 34.2 pg (28.0-33.3)
[2018-02-12 18:43] LABS: Mean Corpuscular HGB Conc 43.5 g/dL (31.6-35.5)
[2018-02-12 19:14] LABS: Estimated Average Glucose 349 mg/dl; Hemoglobin A1C 13.8 %
[2018-02-12 20:12] LABS: Alanine Aminotransferase 16 Units/L (7-52); Albumin 3.2 g/dL (3.5-5.7); Albumin/Globulin Ratio 1.2 (1.1-2.2); Alkaline Phosphatase 97 Units/L (34-104); Aspartate Amino Transferase 13 Units/L (13-39); BUN/Creatinine Ratio 35 (6-26); Bilirubin,Indirect 0.2 mg/dL (0.0-1.2); Bilirubin,Total 0.2 mg/dL (0.3-1.0); Blood Urea Nitrogen 14 mg/dL (6-20); Calcium 7.8 mg/dL (8.6-10.3); Carbon Dioxide 22 mEq/L (23-29); Chloride 94 mEq/L (98-107); Globulin 2.6 g/dL (2.4-3.5); Glucose 322 mg/dL (70-105); Lipase 106 Units/L (11-82); Osmolality,Calculated 267 (280-300); Sodium 122 mEq/L (136-145); Total Protein 5.8 g/dL (6.4-8.9); eGFR For Non-African Americans > 60 (> 60)
--- NOTE | 2018-02-12 21:45 | Internal Med History&Physical ---
Date of Encounter: 02/13/18 Time of Encounter: 21:45 Internal Medicine - H&P: HPI History of present illness: 42-year-old female presents from home via EMS for evaluation of epigastric abdominal pain and hyperglycemia. Patient is in some dependent diabetic with history of pancreatitis. She cannot afford her insulin and has not been using insulin for the past few days. Approximate one week ago, she was discharged from the hospital after treatment for pancreatitis. 4 days ago, she followed up outpatient with her primary care physician and was hyperglycemic to the mid 500s at that time. He advised her to come directly to the emergency department. She chose against this to stay with her family during the holidays. She was evaluated by ER staff and was found with hyponatermia of 122, which is 114 on repeat. Past Med Surg Social Fam HX - Past Medical History Medical history: non-contributory, diabetes, hyperlipidemia, hypertension Additional medical history: ICH Psychiatric history: bipolar - Past Surgical History Surgical History: cholecystectomy, other Additional surgical history: Tubal ligation, carpal tunnel - Social History Smoking Status: Never smoker Smokeless Tobacco Status: No Alcohol use: none Drug use: none - Family History Maternal Grandmother Living Status: Hx Family Cardiac Disorders: Yes Hx Family Respiratory Disorders: Yes Hx Family Cancer: No Hx Family GI Disorders: No Hx Family Endocrine Disorder: Yes Hx Family Neuromuscular Disorders: No Hx Family Neurologic Disorders: No Hx Family HEENT Disorders: No Hx Family Autoimmune Disorders: No Internal Medicine - H&P: Meds Gabapentin [Neurontin] 300 mg PO TID 03/04/15 [History] Lisinopril [Zestril] 20 mg PO QAM 03/04/15 [History] Metoprolol [Lopressor] 50 mg PO BID 03/04/15 [History] Ziprasidone HCl [Geodon] 40 mg PO QAM 03/04/15 [History] Venlafaxine HCl [Venlafaxine HCl ER] 150 mg PO DAILY 01/31/18 [History] Ziprasidone HCl [Geodon] 60 mg PO HS 01/31/18 [History] raNITIdine HCl [Zantac] 150 mg PO BID 01/31/18 [History] Fenofibrate Nanocrystallized [Tricor] 145 mg PO DAILY #30 tablet 02/02/18 [Rx] Insulin DETEMIR [Levemir] 20 unit SQ HS 30 Days #10 [id number] 02/02/18 [Rx] Insulin LISPRO [HumaLOG] 7 units SQ TIDAC 30 Days #10 vial 02/02/18 [Rx] [place]-3/Dha/Epa/Fish Oil [Fish Oil 1,360 mg Softgel] 1 each PO DAILY #30 capsule 02/02/18 [Rx] Allergy/AdvReac Type Severity Reaction Status Date / Time No Known Drug Allergies Allergy See Verified 03/04/15 10:49 Comments All Systems PM: A 10-system review of systems was performed and is negative for pertinent findings except as documented above in the HPI. - Constitutional Vitals: Temp Pulse Resp BP Pulse Ox 97.6 F 89 18 165/83 98 02/12/18 16:12 02/12/18 21:44 02/12/18 21:44 02/12/18 21:44 02/12/18 21:44 Internal Med - H&P Results - Labs CBC & Chem 7: 02/13/18 02:53 02/12/18 21:22 Labs: Short CBC 02/12/18 Range/Units 17:48 WBC 20.4 H (4.3-11.1) K/mcL Hgb 15.4 (11.5-15.4) g/dL Hct 35.4 (35.3-44.9) % Plt Count 539 H (140-400) K/mcL Neutrophils # 12.5 H (1.6-8.9) K/mcL BMP 02/12/18 17:48 Sodium 122 L Potassium 4.0 Chloride 94 L Carbon Dioxide 22 L BUN 14 Creatinine 0.40 L Glucose 322 H Calcium 7.8 L Cardiac Enzymes 02/12/18 Range/Units 17:48 Troponin I < 0.03 (< 0.04) ng/mL Liver Function 02/12/18 Range/Units 17:48 Total Bilirubin 0.2 L (0.3-1.0) mg/dL Direct Bilirubin 0.0 (0.0-0.2) mg/dL AST 13 (13-39) Units/L ALT 16 (7-52) Units/L Alkaline Phosphatase 97 (34-104) Units/L Albumin 3.2 L (3.5-5.7) g/dL Urine 02/12/18 Range/Units 17:20 Urine Color Yellow (Yellow) Urine Clarity Clear (Clear) Urine pH 6.0 (5.0-8.0) pH Units Ur Specific [place] > 1.030 H (1.010-1.025) Urine Protein Negative (Neg-Trace) mg/dL Urine Glucose (UA) >=1000 H (Normal) mg/dL - Impressions ITS Impressions Chest X-Ray 02/12/18 20:51 IMPRESSION: No acute cardiopulmonary disease. 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 (3) HTN (hypertension) Current Visit: No Status: Chronic Qualifiers: Hypertension type: essential hypertension Qualified Code(s): I10 - Essential (primary) hypertension (4) Obesity, morbid, BMI 40.0-49.9 Current Visit: No Status: Acute (5) Bipolar 1 disorder Current Visit: No Status: Acute (6) Anxiety Current Visit: No Status: Chronic (7) DVT prophylaxis Current Visit: No Status: Acute (8) Idiopathic acute pancreatitis Current Visit: No Status: Acute - Time Spent With Patient Total time spent is greater than 50% in coordination of care (as documented) at patient's floor/unit and/or counseling patient:
[2018-02-12 22:50] LABS: BUN/Creatinine Ratio 32 (6-26); Blood Urea Nitrogen 11 mg/dL (6-20); Calcium 6.4 mg/dL (8.6-10.3); Carbon Dioxide 18 mEq/L (23-29); Chloride 88 mEq/L (98-107); Glucose 271 mg/dL (70-105); Osmolality,Calculated 245 (280-300); Potassium 3.6 mEq/L (3.5-5.1); Sodium 113 mEq/L (136-145); eGFR For Non-African Americans > 60 (> 60)
[2018-02-12] MEDS ORDERED: *HR* Promethazine 25 MG/ML VIAL IVP ONE (23:47)
[2018-02-12] MEDS ORDERED: OXYCODONE Oral CONC 10 MG/0.5 ML ORAL.SYG SL ONE (23:47)
[2018-02-13 01:06] LABS: Sodium, Urine 80.4 mEq/L
[2018-02-13] MEDS ORDERED: 0.9 % Sodium Chloride 1,000 ML IVC SCH ×2 (02:30→04:02)
[2018-02-13] MEDS ORDERED: Acetaminophen 325 MG TABLET PO PRN ×2 (02:30→04:02)
[2018-02-13] MEDS ORDERED: Naloxone 0.4 MG/ML INJ IVP PRN ×4 (02:30→04:02)
[2018-02-13] MEDS ORDERED: OXYCODONE Oral CONC 10 MG/0.5 ML ORAL.SYG SL PRN (02:35)
[2018-02-13] MEDS ORDERED: Ondansetron 4 MG/2 ML VIAL IVP PRN ×2 (02:35→04:02)
[2018-02-13] MEDS ORDERED: D5% in Water 1,000 ML IVC PRN ×2 (02:42→04:02)
[2018-02-13] MEDS ORDERED: Dextrose Gel 15 GM/37.5 ML TUBE PO PRN ×4 (02:42→04:02)
[2018-02-13] MEDS ORDERED: *HR* Dextrose 50 % in Water (Syg) 50 ML SYRINGE IVP PRN ×3 (02:42→17:31)
[2018-02-13 03:38] LABS: Mean Platelet Volume 8.1 fL (9.4-12.4)
[2018-02-13 03:40] LABS: Mean Corpuscular Volume 80.6 fL (83.0-100.0); Red Blood Count 4.59 M/mcL (3.82-4.97); Red Cell Distribution Width 14.3 % (11.5-14.5)
[2018-02-13] MEDS ORDERED: Insulin LISPRO 300 UNITS/3 ML VIAL SQ SCH (04:00)
[2018-02-13 04:07] LABS: Activated Partial Thrombo Time 36.4 Seconds (26.0-36.0)
[2018-02-13 04:27] LABS: Platelet Count 548 K/mcL (140-400)
[2018-02-13 04:30] LABS: Hemoglobin 13.8 g/dL (11.5-15.4)
[2018-02-13] MEDS: OXYCODONE Oral CONC 10 MG/0.5 ML ORAL.SYG SL PRN ×4 (04:32→19:28)
[2018-02-13 05:57] LABS: Triglycerides 4130 mg/dL (< 150)
[2018-02-13 05:58] LABS: Cholesterol 490 mg/dL (< 200); LDL Cholesterol,Calculated 17 mg/dL (0-99)
[2018-02-13 05:59] LABS: Alanine Aminotransferase 13 Units/L (7-52); Albumin 3.2 g/dL (3.5-5.7); Albumin/Globulin Ratio 1.4 (1.1-2.2); Alkaline Phosphatase 70 Units/L (34-104); Aspartate Amino Transferase 12 Units/L (13-39); BUN/Creatinine Ratio 17 (6-26); Bilirubin,Total 0.4 mg/dL (0.3-1.0); Blood Urea Nitrogen 8 mg/dL (6-20); Calcium 7.7 mg/dL (8.6-10.3); Carbon Dioxide 19 mEq/L (23-29); Chloride 94 mEq/L (98-107); Chol/HDL Ratio 28.8 (0-4.9); Globulin 2.3 g/dL (2.4-3.5); Glucose 346 mg/dL (70-105); HDL Cholesterol 17 mg/dL (40-59); Magnesium 1.4 mg/dL (1.6-2.6); Osmolality,Calculated 270 (280-300); Phosphorous 2.8 mg/dL (2.7-4.5); Potassium 4.3 mEq/L (3.5-5.1); Sodium 124 mEq/L (136-145); Total Protein 5.5 g/dL (6.4-8.9); eGFR For Non-African Americans > 60 (> 60)
--- NOTE | 2018-02-13 08:23 | Nephrology Consult Note ---
Date of Encounter: 02/13/18 Time of Encounter: 09:15 Assessment and Plan (1) Hyponatremia Current Visit: Yes Status: Acute Acute on Chronic hyponatremia with risk factors including SSRI and AED meds that she takes, Bipolary with polydipsia, hyperglycemia. I highly suspect the 113 PNa is not accurate, since all her other PNa levels drawn thus far during this admission were consistently near 121-124, and so the 113 most likely was an outlier and not an accurate result. I rec a slow steady increase of about 6-8 mEq / 24hr based upon starting point of 122 (not 113), which was her presenting PNa. Prison use SSRI and AED drugs are likely contributing to her hyponatremia. Follow a fluid restriction of free water of <48oz per day. Stop IVF to allow for a slow correction. Okay to consume salt broths today. Should check PNa q4hr till the level rises above 130. Asymptomatic in terms of neuro impacts from the hyponatremia, so no indications for 3% saline. Thank you for consulting [facility] in this high-risk and complex patient who has required a high degree of E/M and MDM. Will continue to follow with you. My colleague Dr. Zuniga will be on-call tomorrow. (2) Hyperglycemia Current Visit: Yes Status: Acute When severe and above 200, this can contribute to a partial pseudohyponatremia. Rec standard inpatient glycemic control. (3) HTN (hypertension) Current Visit: No Status: Chronic Hold any MIKKI or ARB for now. Sometimes, an MIKKI or ARB can induce a "reset osmostat". Plus with her pancreatitis, she may be at risk for an DEMETRICE. Qualifiers: Hypertension type: essential hypertension Qualified Code(s): I10 - Essential (primary) hypertension (4) Acute pancreatitis Current Visit: Yes Status: Acute As per primary/gen surgery. Qualifiers: Pancreatitis type: other Acute pancreatitis complication: unspecified Qualified Code(s): K85.80 - Other acute pancreatitis without necrosis or infection (5) Bipolar 1 disorder Current Visit: No Status: Chronic Her Pysch meds are likely contributing at least to her chronic hyponatremia in addition to her drive for thirst, i.e. the polydipsia, which would also co ntribute to her hyponatremia. Will defer to Psychiatry, but consider adjust her psych meds with able to less these risk factors for hyponatremia. History of Present Illness - Reason for Consult Consult date: 02/13/18 hyponatremia Requesting physician: Shubham Fraga - Chief Complaint Hyponatremia - History of Present Illness Roxane James is a very pleasant 42 y/o WF with a pmh of Bipolar disorder, hx of pancreatitis, prior cerebral aneurysm s/p neurosurgery in 2018 and et al who presented with persistent N/V and was found to have hyponatremia, for which Nephrology was consulted. She said she vomited about "thirty" times over the last few days. In general and a normal day, she said she drinks "lots" of water per day; and when I attempted to quantify this with her she said she drinks about 3 or more liters per day. She denied taking NSAIDs, and did not affirm diarrhea. 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 FHx: no relatives on dialysis. Past Med Surg Social Fam HX - Past Medical History Medical history: non-contributory, diabetes, hyperlipidemia, hypertension Additional medical history: ICH Psychiatric history: bipolar - Past Surgical History Surgical History: cholecystectomy, other Additional surgical history: Tubal ligation, carpal tunnel - Social History Smoking Status: Never smoker Smokeless Tobacco Status: No Alcohol use: none Drug use: none - Family History Maternal Grandmother Living Status: Hx Family Cardiac Disorders: Yes Hx Family Respiratory Disorders: Yes Hx Family Cancer: No Hx Family GI Disorders: No Hx Family Endocrine Disorder: Yes Hx Family Neuromuscular Disorders: No Hx Family Neurologic Disorders: No Hx Family HEENT Disorders: No Hx Family Autoimmune Disorders: No Medications and Allergies Gabapentin [Neurontin] 300 mg PO TID 03/04/15 [History] Lisinopril [Zestril] 20 mg PO QAM 03/04/15 [History] Metoprolol [Lopressor] 50 mg PO BID 03/04/15 [History] Ziprasidone HCl [Geodon] 40 mg PO QAM 03/04/15 [History] Venlafaxine HCl [Venlafaxine HCl ER] 150 mg PO DAILY 01/31/18 [History] Ziprasidone HCl [Geodon] 60 mg PO HS 01/31/18 [History] raNITIdine HCl [Zantac] 150 mg PO BID 01/31/18 [History] Insulin DETEMIR [Levemir] 20 unit SQ HS 30 Days #10 [id number] 02/02/18 [Rx] Insulin LISPRO [HumaLOG] 7 units SQ TIDAC 30 Days #10 vial 02/02/18 [Rx] LORazepam [Ativan] 0.5 mg PO BID 02/13/18 [History] Allergy/AdvReac Type Severity Reaction Status Date / Time No Known Drug Allergies Allergy See Verified 03/04/15 10:49 Comments Review of Systems All Systems: reviewed and no additional remarkable complaints except as stated Exam - Vital Signs Vital signs: Initial Vital Signs Temp Pulse Resp BP Pulse Ox 97.6 F 88 14 139/87 96 02/12/18 16:12 02/12/18 16:12 02/12/18 16:12 02/12/18 16:12 02/12/18 16:12 Vital Signs - Last 8 Hours Temp Pulse Resp BP Pulse Ox 02/13/18 07:19 98.4 F 90 18 173/99 97 02/13/18 03:50 98.8 F 93 19 177/99 97 02/13/18 03:32 94 174/94 02/13/18 03:16 98.5 F 87 16 182/87 97 02/13/18 02:12 90 184/97 02/13/18 01:06 96 168/90 Intake and Output 02/12/18 02/13/18 02/13/18 23:59 07:59 15:59 Intake Total 1000 / 1000 750 / 750 Output Total 0 / 0 1450 / 1450 Balance 1000 / 1000 -700 / -700 Intake: IV Fluids 1000 / 1000 750 / 750 0.9 % Sodium Chloride 1,000 ML 1000 / 1000 750 / 750 @ 250 mls/hr IVC .Q4H [facility] Rx#: [id number] Oral 0 / 0 0 / 0 Output: Urine 0 / 0 1400 / 1400 Emesis 50 / 50 Other: Stool Characteristics Normal for Patient Weight 82.554 kg Blood Glucose* 297 346 - General Appearance General appearance: well-developed, well-nourished, appears started age EENT: ATNC, PERRL, mucous membranes moist Neck: supple Respiratory: clear Cardiology: no edema, regular rate, regular rhythm, normal S1, normal S2 Gastrointestinal: normoactive bowel sounds, tenderness (mild mid epigastric ttp) Integumentary: no rash, warm and dry Neurologic: no focal deficit, no asterixis, alert and oriented x3 Musculoskeletal: no deformities, no erythema, no cyanosis Psychiatric: mood/affect appropriate Results - Lab Results 02/14/18 06:53 02/14/18 06:53 Most recent lab results Calcium 7.7 mg/dL (8.6-10.3) L 02/13/18 02:53 Phosphorus 2.8 mg/dL (2.7-4.5) 02/13/18 02:53 Magnesium 1.4 mg/dL (1.6-2.6) L 02/13/18 02:53 Urine Creatinine 15 mg/dL 02/12/18 17:20 Urine Sodium 80.4 mEq/L 02/12/18 17:20 Consult Discharge Plan - Plan Referrals: Ami Romero MD [Primary Care Provider] -
--- NOTE | 2018-02-13 09:57 | Internal Med Progress Note ---
Hospitalist Progress Note - Encounter Date of Encounter: 02/13/18 Time of Encounter: 09:54 - Subjective Interval History: Pt continues to report abdominal pain. She denies fever, chills, N/V or diarrhea. She denies CP or SOB. - Exam Vitals: Temp Pulse Resp BP Pulse Ox 98.4 F 89 18 174/98 98 02/13/18 07:19 02/13/18 08:29 02/13/18 07:19 02/13/18 08:20 02/13/18 08:29 Exam: Exam: EXAM: General: Alert, oriented 4, not in distress HEENT: Moist mucosa, not pale, normal neck inpsection Chest: R port, clean dressing Cardiovascular: Normal S1 & S2, No JVD. Pulse regular. Lungs: scattered R rhonchi Abdomen: Soft, non-tender, no-distended, no rebound or guarding Neurological: grossly non-focal, no focal deficits, alert, oriented, moves all limbs spontaneously Extremities: No pedal edema Psych: Appropriate affect - Assessment and Plan (1) Acute pancreatitis Current Visit: Yes Status: Acute Assessment and Plan: Hypertriglyceredemia induced pancreatitis. Pt admits to medical non-compliance with her medications. She states she has not been on medication for about one year. States she keeps forgetting to ask her new PCP to renew her meds. She also admits to not being complaint with her PCP office visits and has not been able to have labs drawn. Her triglycerides on this presentation was 4130. Will consult GI to see. CT scan of abdomen showing increased peripancreatic inflammatory changes compared to prior examination. Discussed with surgery and consulting. Starting pt on Zosyn for now There was some concern for splenic infarct but CT abdomen and pelvis with IV contrast was negative for splenic thrombosis. CT abdomen and pelvis with oral contrast, no IV CT/CT abd pelvis wo iv oral only IMPRESSION: Findings consistent with acute pancreatitis with increased peripancreatic inflammatory changes compared to prior examination . No evidence of discrete drainable fluid collection to suggest pseudocyst. Secondary duodenitis without evidence of duodenal obstruction. Worsening splenomegaly with severe hypoattenuation of the spleen. In the setting of pancreatitis, splenic vein thrombosis is in the differential diagnosis. Vascular ultrasound could be performed for further evaluation. Unchanged large midline ventral abdominal wall hernia containing mesenteric fat without acute hernia complication. (2) Hyponatremia Current Visit: Yes Status: Acute Assessment and Plan: most likely 2/2 osmotic diuresis , urine glucose more than 1000, starting normal saline , urine osm, serum osm, nephrology consulting. Fluid restriction for now. (3) T2DM (type 2 diabetes mellitus) Current Visit: No Status: Acute Assessment and Plan: Pt admits to medical non-compliance with her meds. Will place on insulin gtt for now and monitor glucose. (4) HTN (hypertension) Current Visit: No Status: Chronic Assessment and Plan: On Metorpolol 12.5 mg PO BID (5) Bipolar 1 disorder Current Visit: No Status: Acute Assessment and Plan: Will resume home meds when able to tolerate PO meds (6) Anxiety Current Visit: No Status: Chronic Assessment and Plan: On Geodon. (7) Obesity, morbid, BMI 40.0-49.9 Current Visit: No Status: Acute Assessment and Plan: Life style modification such as diet and exercise recommended. (8) Leucocytosis Current Visit: No Status: Acute Assessment and Plan: Pt has had leukocytosis as far back as 03/04/2015. She has only had normal BC twice once 03/06/2015 10.3 and 02/02/2018 6.4. Pt afebrile on admission. Will check CT abd and pelvis since last abdominal CT done 01/31/2018 showed severe pancreatitis. Urine analysis without evidence of infection. Chest x ray showed no acute pulmonary process. Consulting oncology. (9) Medical non-compliance Current Visit: Yes Status: Acute Assessment and Plan: Pt strongly advised to comply with her medications (10) Hypertriglyceridemia Current Visit: No Status: Acute Assessment and Plan: Triglycerides 4130. Pt has been non-complaint with her insulin. Will monitor levels and hoepefully should trend down while on Atorvastatin, Fenofibrate and insulin. If persists, will consider insulin gtt. 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 Patient is in some dependent diabetic with history of pancreatitis. She cannot afford her insulin and has not been using insulin for the past few days. Approximate one week ago, she was discharged from the hospital after treatment for pancreatitis. 4 days ago, she followed up outpatient with her primary care physician and was hyperglycemic to the mid 500s at that time. He advised her to come directly to the emergency department. She chose against this to stay with her family during the holidays. She was evaluated by ER staff and was found with hyponatermia of 122, which is 114 on repeat. - Time Spent with Patient Total time spent is greater than 50% in coordination of care (as documented) at patient's floor/unit and/or counseling patient: less than 15 minutes Plan of Care Discussed with: patient Internal Medicine: Result - Labs CBC & Chem 7: 02/13/18 15:46 02/13/18 17:46 Labs: Short CBC 02/12/18 02/13/18 Range/Units 17:48 02:53 WBC 20.4 H 27.8 H (4.3-11.1) K/mcL Hgb 15.4 13.8 D (11.5-15.4) g/dL Hct 35.4 37.0 (35.3-44.9) % Plt Count 539 H 548 H (140-400) K/mcL Neutrophils # 12.5 H (1.6-8.9) K/mcL BMP 02/12/18 02/12/18 02/13/18 17:48 21:22 02:53 Sodium 122 L 113 L* D 124 L D Potassium 4.0 3.6 4.3 Chloride 94 L 88 L 94 L Carbon Dioxide 22 L 18 L 19 L BUN 14 11 8 Creatinine 0.40 L 0.34 L 0.47 L Glucose 322 H 271 H 346 H Calcium 7.8 L 6.4 L 7.7 L 02/13/18 02/13/18 04:54 08:04 Sodium 121 L 124 L Potassium Chloride Carbon Dioxide BUN Creatinine Glucose Calcium Cardiac Enzymes 02/12/18 Range/Units 17:48 Troponin I < 0.03 (< 0.04) ng/mL Liver Function 02/12/18 02/13/18 Range/Units 17:48 02:53 Total Bilirubin 0.2 L 0.4 (0.3-1.0) mg/dL Direct Bilirubin 0.0 (0.0-0.2) mg/dL AST 13 12 L (13-39) Units/L ALT 16 13 (7-52) Units/L Alkaline Phosphatase 97 70 (34-104) Units/L Albumin 3.2 L 3.2 L (3.5-5.7) g/dL Urine 02/12/18 Range/Units 17:20 Urine Color Yellow (Yellow) Urine Clarity Clear (Clear) Urine pH 6.0 (5.0-8.0) pH Units Ur Specific [place] > 1.030 H (1.010-1.025) Urine Protein Negative (Neg-Trace) mg/dL Urine Glucose (UA) >=1000 H (Normal) mg/dL - ABG Interpretation ABG results: PT/INR, D-dimer PT TNP 02/13/18 02:53 - Impressions Impressions Chest X-Ray 02/12/18 20:51 IMPRESSION: No acute cardiopulmonary disease. D/ / Bryant Jeffery MD / Bryant Jeffery MD Interpreting Provider: Bryant Jeffery MD Consult Discharge Plan - Plan Referrals: Ami Romero MD [Primary Care Provider] - (1) Acute pancreatitis Qualifiers: Pancreatitis type: other Acute pancreatitis complication: unspecified Qualified Code(s): K85.80 - Other acute pancreatitis without necrosis or infection (3) T2DM (type 2 diabetes mellitus) Qualifiers: Diabetes mellitus complication status: with ketoacidosis Diabetes mellitus complication detail: without coma Qualified Code(s): E11.10 - Type 2 diabetes mellitus with ketoacidosis without coma; Z79.4 - [facility] (current) use of ins ulin (4) HTN (hypertension) Qualifiers: Hypertension type: essential hypertension Qualified Code(s): I10 - Essential (primary) hypertension (8) Leucocytosis Qualifiers: Leukocytosis type: unspecified Qualified Code(s): D72.829 - Elevated white blood cell count, unspecified
[2018-02-13] MEDS: Insulin LISPRO 300 UNITS/3 ML VIAL SQ SCH ×2 (09:58→12:17)
[2018-02-13] MEDS ORDERED: Isovue-370 500 ML INFUS..BTL PO ONE (12:35)
[2018-02-13] MEDS ORDERED: Isovue-370 500 ML INFUS..BTL IV ONE (14:35)
[2018-02-13] MEDS ORDERED: Lisinopril 20 MG TABLET PO SCH (14:44)
[2018-02-13] MEDS: Piperacillin/Tazobactam 3.375 GM in 0.9 % Sodium Chloride Mini Bag 100 ML IVPB SCH ×2 (15:10→23:33)
[2018-02-13] MEDS ORDERED: *HR* Heparin 5,000 UNIT/ML VIAL IVP PRN ×2 (15:13)
[2018-02-13] MEDS ORDERED: *HR* Heparin 5,000 UNIT/ML VIAL IVP ONE (15:13)
[2018-02-13] MEDS ORDERED: Heparin 25,000 UNIT/500 ML D5W 25,000 UNIT/500 ML BAG IVC SCH (15:15)
--- NOTE | 2018-02-13 15:39 | General Surgery Consult Note ---
<Ana De Paz - Last Filed: 02/13/18 15:32> Date of Encounter: 02/13/18 Time of Encounter: 15:09 Assessment and Plan (1) Acute pancreatitis Current Visit: Yes Status: Acute Recurrent, likely due to hypertryglyceridemia as a result of hyperglycemia Non-compliant with insulin therapy and diet Discharged 1 week ago for Acute Pancreatitis with WBC 21.7, Triglycerides 2307 and Lipase >1800, glucose 425 Now presenting with WBC 20.4 Na 122, Triglycerides 4130, Lipase 106, glucose 346 Cam score of 2 (WBC and glucose) CT abd/pelvis w/ oral contrast - acute pancreatitis without fluid collection or pseudocyst, worsened splenomegaly Continue supportive care and discomfort management Recommend insulin gtt for aggressive glucose control with a goal of 150, this should also help Na correction Goal of 0.5cc/kg/hr for urine output, if not at goal on fluid restriction may need to give IVFs Replace electrolytes per primary team CT abd/pelvis w/ IV contrast pending Pancreatic/Splenic vein US pending In regards to splenomegaly, if no sign of varices or necrosis, no need for surgical intervention at this time Qualifiers: Pancreatitis type: other Acute pancreatitis complication: unspecified Qualified Code(s): K85.80 - Other acute pancreatitis without necrosis or infection History of Present Illness Consult date: 02/13/18 Reason for consult: other Requesting physician: Natalie Romero History of present illness: Roxane James is a 42 year old female with a history of IDDM and recent hospitalization for acute pancreatitis 1 week ago. She was seen by her PCP 5 days ago and was found to be hyperglemic in the 500s and was advised to go to the ER, but refused due to the holidays. She now presents via EMS with sharp stabbing epigastric pain and nausea. She states that she has not taken her insulin for over a year. She states that this episode is worse than when she presented last week, because her pain has not been well controlled with pain medication. She has received 3L IVFs, but due to a Na of 122 on presentation, s he is now on fluid restriction. Other labs on admission were WBC 20.4, K3.6, Cr 0.34, glucose 322, A1C 13.8, Lactic acid 1.8, Phosphorus 2.8, Mg 1.4, Triglycerides 4130, Lipase 106. CT abd/pelvis with oral contrast showed acute pancreatitis without evidence of fluid collection or pseudocyst. Worsened splenomegaly was also noted. Past Med Surg Social Fam HX - Past Medical History Medical history: non-contributory, diabetes, hyperlipidemia, hypertension Additional medical history: ICH Psychiatric history: bipolar - Past Surgical History Surgical History: cholecystectomy, other Additional surgical history: Tubal ligation, carpal tunnel - Social History Smoking Status: Never smoker Smokeless Tobacco Status: No Alcohol use: none Drug use: none - Family History Maternal Grandmother Living Status: Hx Family Cardiac Disorders: Yes Hx Family Respiratory Disorders: Yes Hx Family Cancer: No Hx Family GI Disorders: No Hx Family Endocrine Disorder: Yes Hx Family Neuromuscular Disorders: No Hx Family Neurologic Disorders: No Hx Family HEENT Disorders: No Hx Family Autoimmune Disorders: No Medications and Allergies RX: Gabapentin [Neurontin] 300 mg PO TID 03/04/15 [History] RX: Lisinopril [Zestril] 20 mg PO QAM 03/04/15 [History] RX: Metoprolol [Lopressor] 50 mg PO BID 03/04/15 [History] RX: Ziprasidone HCl [Geodon] 40 mg PO QAM 03/04/15 [History] RX: Venlafaxine HCl [Venlafaxine HCl ER] 150 mg PO DAILY 01/31/18 [History] RX: Ziprasidone HCl [Geodon] 60 mg PO HS 01/31/18 [History] RX: raNITIdine HCl [Zantac] 150 mg PO BID 01/31/18 [History] RX: Insulin DETEMIR [Levemir] 20 unit SQ HS 30 Days #10 [id number] 02/02/18 [Rx] RX: Insulin LISPRO [HumaLOG] 7 units SQ TIDAC 30 Days #10 vial 02/02/18 [Rx] LORazepam [Ativan] 0.5 mg PO BID 02/13/18 [History] Allergy/AdvReac Type Severity Reaction Status Date / Time No Known Drug Allergies Allergy See Verified 03/04/15 10:49 Comments Review of Systems All systems PM: The remainder of the systems were reviewed and are negative - Constitutional no chills, no fever(s) - Cardiovascular diaphoresis, no chest pain, no lightheadedness - Gastrointestinal abdominal pain, nausea, no diarrhea, no vomiting General Surgery Exam Initial Vital Signs Temp Pulse Resp BP Pulse Ox 97.6 F 88 14 139/87 96 02/12/18 16:12 02/12/18 16:12 02/12/18 16:12 02/12/18 16:12 02/12/18 16:12 - General physical appearance well developed, well nourished, moderate distress, moderate pain - Eyes normal ocular movement - ENT atraumatic, normocephalic - Respiratory normal expansion, normal respiratory effort - Cardiovascular Cardiovascular exam: Present: RRR, no murmurs/rubs/gallops - Abdomen Abdomen general surgery: Present: bowel sounds present, soft, tender Abdominal Tenderness: Present: epigastic - Integumentary Integumentary general surgery: Present: diaphoresis Exam Initial Vital Signs Temp Pulse Resp BP Pulse Ox 97.6 F 88 14 139/87 96 02/12/18 16:12 02/12/18 16:12 02/12/18 16:12 02/12/18 16:12 02/12/18 16:12 Results - Labs 02/13/18 02:53 02/13/18 14:50 Abnormal lab results WBC 27.8 K/mcL (4.3-11.1) H 02/13/18 02:53 MCV 80.6 fL (83.0-100.0) L 02/13/18 02:53 MCHC 38.0 g/dL (31.6-35.5) H 02/13/18 02:53 Plt Count 548 K/mcL (140-400) H 02/13/18 02:53 MPV 8.1 fL (9.4-12.4) L 02/13/18 02:53 Neutrophils # 12.5 K/mcL (1.6-8.9) H 02/12/18 17:48 Lymphocytes # 4.9 K/mcL (0.6-4.6) H 02/12/18 17:48 Monocytes # 2.3 K/mcL (0.0-1.3) H 02/12/18 17:48 APTT 36.4 Seconds (26.0-36.0) H 02/13/18 02:53 Sodium 123 mEq/L (136-145) L 02/13/18 14:50 Chloride 94 mEq/L (98-107) L 02/13/18 02:53 Carbon Dioxide 19 mEq/L (23-29) L 02/13/18 02:53 Creatinine 0.47 mg/dL (0.60-1.20) L 02/13/18 02:53 Glucose 346 mg/dL (70-105) H 02/13/18 02:53 POC Glucose 294 mg/dL (70-99) H 02/13/18 12:09 Hemoglobin A1c 13.8 % (-5.6) H 02/12/18 17:48 Calculated Osmolality 270 (280-300) L 02/13/18 02:53 Calcium 7.7 mg/dL (8.6-10.3) L 02/13/18 02:53 Magnesium 1.4 mg/dL (1.6-2.6) L 02/13/18 02:53 AST 12 Units/L (13-39) L 02/13/18 02:53 Serum Total Protein 5.5 g/dL (6.4-8.9) L 02/13/18 02:53 Albumin 3.2 g/dL (3.5-5.7) L 02/13/18 02:53 Globulin 2.3 g/dL (2.4-3.5) L 02/13/18 02:53 Triglycerides 4130 mg/dL (< 150) H 02/13/18 02:53 Cholesterol 490 mg/dL (< 200) H 02/13/18 02:53 HDL Cholesterol 17 mg/dL (40-59) L 02/13/18 02:53 Cholesterol/HDL Ratio 28.8 (0-4.9) H 02/13/18 02:53 Lipase 479 Units/L (11-82) H 02/13/18 14:50 Ur Specific [place] > 1.030 (1.010-1.025) H 02/12/18 17:20 Urine Glucose (UA) >=1000 mg/dL (Normal) H 02/12/18 17:20 Diabetes panel 02/12/18 02/12/18 02/12/18 Range/Units 17:48 17:48 21:22 Sodium 122 L 113 L* D (136-145) mEq/L Potassium 4.0 3.6 (3.5-5.1) mEq/L Chloride 94 L 88 L (98-107) mEq/L Carbon Dioxide 22 L 18 L (23-29) mEq/L BUN 14 11 (6-20) mg/dL Creatinine 0.40 L 0.34 L (0.60-1.20) mg/dL Glucose 322 H 271 H (70-105) mg/dL Hemoglobin A1c 13.8 H ( - 5.6) % Calcium 7.8 L 6.4 L (8.6-10.3) mg/dL AST 13 (13-39) Units/L ALT 16 (7-52) Units/L Alkaline Phosphatase 97 (34-104) Units/L Albumin 3.2 L (3.5-5.7) g/dL Triglycerides (< 150) mg/dL HDL Cholesterol (40-59) mg/dL 02/13/18 02/13/18 02/13/18 Range/Units 02:53 04:54 08:04 Sodium 124 L D 121 L 124 L (136-145) mEq/L Potassium 4.3 (3.5-5.1) mEq/L Chloride 94 L (98-107) mEq/L Carbon Dioxide 19 L (23-29) mEq/L BUN 8 (6-20) mg/dL Creatinine 0.47 L (0.60-1.20) mg/dL Glucose 346 H (70-105) mg/dL Hemoglobin A1c ( - 5.6) % Calcium 7.7 L (8.6-10.3) mg/dL AST 12 L (13-39) Units/L ALT 13 (7-52) Units/L Alkaline Phosphatase 70 (34-104) Units/L Albumin 3.2 L (3.5-5.7) g/dL Triglycerides 4130 H (< 150) mg/dL HDL Cholesterol 17 L (40-59) mg/dL 02/13/18 02/13/18 02/13/18 Range/Units 11:14 12:50 14:50 Sodium 124 L 122 L 123 L (136-145) mEq/L Potassium (3.5-5.1) mEq/L Chloride (98-107) mEq/L Carbon Dioxide (23-29) mEq/L BUN (6-20) mg/dL Creatinine (0.60-1.20) mg/dL Glucose (70-105) mg/dL Hemoglobin A1c ( - 5.6) % Calcium (8.6-10.3) mg/dL AST (13-39) Units/L ALT (7-52) Units/L Alkaline Phosphatase (34-104) Units/L Albumin (3.5-5.7) g/dL Triglycerides (< 150) mg/dL HDL Cholesterol (40-59) mg/dL Calcium panel 02/12/18 02/12/18 02/13/18 Range/Units 17:48 21:22 02:53 Calcium 7.8 L 6.4 L 7.7 L (8.6-10.3) mg/dL Phosphorus 2.8 (2.7-4.5) mg/dL Albumin 3.2 L 3.2 L (3.5-5.7) g/dL Pituitary panel 02/12/18 02/12/18 02/13/18 Range/Units 17:48 21:22 02:53 Sodium 122 L 113 L* D 124 L D (136-145) mEq/L Potassium 4.0 3.6 4.3 (3.5-5.1) mEq/L Chloride 94 L 88 L 94 L (98-107) mEq/L Carbon Dioxide 22 L 18 L 19 L (23-29) mEq/L BUN 14 11 8 (6-20) mg/dL Creatinine 0.40 L 0.34 L 0.47 L (0.60-1.20) mg/dL Glucose 322 H 271 H 346 H (70-105) mg/dL Calcium 7.8 L 6.4 L 7.7 L (8.6-10.3) mg/dL 02/13/18 02/13/18 02/13/18 Range/Units 04:54 08:04 11:14 Sodium 121 L 124 L 124 L (136-145) mEq/L Potassium (3.5-5.1) mEq/L Chloride (98-107) mEq/L Carbon Dioxide (23-29) mEq/L BUN (6-20) mg/dL Creatinine (0.60-1.20) mg/dL Glucose (70-105) mg/dL Calcium (8.6-10.3) mg/dL 02/13/18 02/13/18 Range/Units 12:50 14:50 Sodium 122 L 123 L (136-145) mEq/L Potassium (3.5-5.1) mEq/L Chloride (98-107) mEq/L Carbon Dioxide (23-29) mEq/L BUN (6-20) mg/dL Creatinine (0.60-1.20) mg/dL Glucose (70-105) mg/dL Calcium (8.6-10.3) mg/dL Adrenal panel 02/12/18 02/12/18 02/13/18 Range/Units 17:48 21:22 02:53 Sodium 122 L 113 L* D 124 L D (136-145) mEq/L Potassium 4.0 3.6 4.3 (3.5-5.1) mEq/L Chloride 94 L 88 L 94 L (98-107) mEq/L Carbon Dioxide 22 L 18 L 19 L (23-29) mEq/L BUN 14 11 8 (6-20) mg/dL Creatinine 0.40 L 0.34 L 0.47 L (0.60-1.20) mg/dL Glucose 322 H 271 H 346 H (70-105) mg/dL Calcium 7.8 L 6.4 L 7.7 L (8.6-10.3) mg/dL Total Bilirubin 0.2 L 0.4 (0.3-1.0) mg/dL AST 13 12 L (13-39) Units/L ALT 16 13 (7-52) Units/L Alkaline Phosphatase 97 70 (34-104) Units/L Albumin 3.2 L 3.2 L (3.5-5.7) g/dL 02/13/18 02/13/18 02/13/18 Range/Units 04:54 08:04 11:14 Sodium 121 L 124 L 124 L (136-145) mEq/L Potassium (3.5-5.1) mEq/L Chloride (98-107) mEq/L Carbon Dioxide (23-29) mEq/L BUN (6-20) mg/dL Creatinine (0.60-1.20) mg/dL Glucose (70-105) mg/dL Calcium (8.6-10.3) mg/dL Total Bilirubin (0.3-1.0) mg/dL AST (13-39) Units/L ALT (7-52) Units/L Alkaline Phosphatase (34-104) Units/L Albumin (3.5-5.7) g/dL 02/13/18 02/13/18 Range/Units 12:50 14:50 Sodium 122 L 123 L (136-145) mEq/L Potassium (3.5-5.1) mEq/L Chloride (98-107) mEq/L Carbon Dioxide (23-29) mEq/L BUN (6-20) mg/dL Creatinine (0.60-1.20) mg/dL Glucose (70-105) mg/dL Calcium (8.6-10.3) mg/dL Total Bilirubin (0.3-1.0) mg/dL AST (13-39) Units/L ALT (7-52) Units/L Alkaline Phosphatase (34-104) Units/L Albumin (3.5-5.7) g/dL All other labs normal. Consult Discharge Plan - Plan Referrals: Ami Romero MD [Primary Care Provider] - <Ramone White - Last Filed: 02/14/18 08:16> Date of Encounter: 02/14/18 Review of Systems All systems PM: The remainder of the systems were reviewed and are negative General Surgery Exam Initial Vital Signs Temp Pulse Resp BP Pulse Ox 97.6 F 88 14 139/87 96 02/12/18 16:12 02/12/18 16:12 02/12/18 16:12 02/12/18 16:12 02/12/18 16:12 Exam Initial Vital Signs Temp Pulse Resp BP Pulse Ox 97.6 F 88 14 139/87 96 02/12/18 16:12 02/12/18 16:12 02/12/18 16:12 02/12/18 16:12 02/12/18 16:12 Results - Labs 02/14/18 06:53 02/14/18 06:53 Abnormal lab results WBC 34.8 K/mcL (4.3-11.1) H* 02/14/18 06:53 MCV 77.9 fL (83.0-100.0) L 02/14/18 06:53 MCH 27.7 pg (28.0-33.3) L 02/14/18 06:53 RDW 15.3 % (11.5-14.5) H 02/14/18 06:53 Plt Count 842 K/mcL (140-400) H 02/14/18 06:53 MPV 8.3 fL (9.4-12.4) L 02/14/18 06:53 Neutrophils # 12.5 K/mcL (1.6-8.9) H 02/12/18 17:48 Lymphocytes # 4.9 K/mcL (0.6-4.6) H 02/12/18 17:48 Monocytes # 2.3 K/mcL (0.0-1.3) H 02/12/18 17:48 PT 13.2 Seconds (9.4-12.1) H 02/13/18 15:46 APTT 36.4 Seconds (26.0-36.0) H 02/13/18 02:53 Sodium 125 mEq/L (136-145) L 02/14/18 06:53 Chloride 96 mEq/L (98-107) L 02/14/18 06:53 BUN 3 mg/dL (6-20) L 02/14/18 06:53 Creatinine 0.38 mg/dL (0.60-1.20) L 02/14/18 06:53 Glucose 187 mg/dL (70-105) H 02/14/18 06:53 POC Glucose 212 mg/dL (70-99) H 02/14/18 05:33 Hemoglobin A1c 13.8 % (-5.6) H 02/12/18 17:48 Calculated Osmolality 261 (280-300) L 02/14/18 06:53 Magnesium 1.4 mg/dL (1.6-2.6) L 02/13/18 02:53 AST 12 Units/L (13-39) L 02/13/18 02:53 Serum Total Protein 5.5 g/dL (6.4-8.9) L 02/13/18 02:53 Albumin 3.2 g/dL (3.5-5.7) L 02/13/18 02:53 Globulin 2.3 g/dL (2.4-3.5) L 02/13/18 02:53 Triglycerides 4130 mg/dL (< 150) H 02/13/18 02:53 Cholesterol 490 mg/dL (< 200) H 02/13/18 02:53 HDL Cholesterol 17 mg/dL (40-59) L 02/13/18 02:53 Cholesterol/HDL Ratio 28.8 (0-4.9) H 02/13/18 02:53 Lipase 479 Units/L (11-82) H 02/13/18 14:50 Folate 19.8 ng/mL (3.0-16.0) H 02/14/18 06:53 Ur Specific [place] > 1.030 (1.010-1.025) H 02/12/18 17:20 Urine Glucose (UA) >=1000 mg/dL (Normal) H 02/12/18 17:20 Diabetes panel 02/13/18 02/13/18 02/13/18 Range/Units 08:04 11:14 12:50 Sodium 124 L 124 L 122 L (136-145) mEq/L Potassium (3.5-5.1) mEq/L Chloride (98-107) mEq/L Carbon Dioxide (23-29) mEq/L BUN (6-20) mg/dL Creatinine (0.60-1.20) mg/dL Glucose (70-105) mg/dL Calcium (8.6-10.3) mg/dL 02/13/18 02/13/18 02/13/18 Range/Units 14:50 15:46 17:46 Sodium 123 L 123 L 126 L (136-145) mEq/L Potassium 3.6 (3.5-5.1) mEq/L Chloride 95 L (98-107) mEq/L Carbon Dioxide 23 (23-29) mEq/L BUN 5 L (6-20) mg/dL Creatinine 0.42 L (0.60-1.20) mg/dL Glucose 280 H (70-105) mg/dL Calcium 7.4 L (8.6-10.3) mg/dL 02/13/18 02/13/18 02/14/18 Range/Units 19:42 22:13 02:26 Sodium 122 L 124 L 125 L (136-145) mEq/L Potassium 3.4 L 3.3 L (3.5-5.1) mEq/L Chloride 95 L 94 L (98-107) mEq/L Carbon Dioxide 22 L 24 (23-29) mEq/L BUN 5 L 3 L (6-20) mg/dL Creatinine 0.35 L 0.46 L (0.60-1.20) mg/dL Glucose 260 H 150 H (70-105) mg/dL Calcium 7.6 L 8.8 (8.6-10.3) mg/dL 02/14/18 Range/Units 06:53 Sodium 125 L (136-145) mEq/L Potassium 3.7 (3.5-5.1) mEq/L Chloride 96 L (98-107) mEq/L Carbon Dioxide 23 (23-29) mEq/L BUN 3 L (6-20) mg/dL Creatinine 0.38 L (0.60-1.20) mg/dL Glucose 187 H (70-105) mg/dL Calcium 8.7 (8.6-10.3) mg/dL Thyroid panel 02/14/18 Range/Units 06:53 TSH 0.610 (0.340-5.600) mcIU/mL Calcium panel 02/13/18 02/13/18 02/14/18 Range/Units 17:46 22:13 02:26 Calcium 7.4 L 7.6 L 8.8 (8.6-10.3) mg/dL 02/14/18 Range/Units 06:53 Calcium 8.7 (8.6-10.3) mg/dL Pituitary panel 02/13/18 02/13/18 02/13/18 Range/Units 08:04 11:14 12:50 Sodium 124 L 124 L 122 L (136-145) mEq/L Potassium (3.5-5.1) mEq/L Chloride (98-107) mEq/L Carbon Dioxide (23-29) mEq/L BUN (6-20) mg/dL Creatinine (0.60-1.20) mg/dL Glucose (70-105) mg/dL Calcium (8.6-10.3) mg/dL TSH (0.340-5.600) mcIU/mL 02/13/18 02/13/18 02/13/18 Range/Units 14:50 15:46 17:46 Sodium 123 L 123 L 126 L (136-145) mEq/L Potassium 3.6 (3.5-5.1) mEq/L Chloride 95 L (98-107) mEq/L Carbon Dioxide 23 (23-29) mEq/L BUN 5 L (6-20) mg/dL Creatinine 0.42 L (0.60-1.20) mg/dL Glucose 280 H (70-105) mg/dL Calcium 7.4 L (8.6-10.3) mg/dL TSH (0.340-5.600) mcIU/mL 02/13/18 02/13/18 02/14/18 Range/Units 19:42 22:13 02:26 Sodium 122 L 124 L 125 L (136-145) mEq/L Potassium 3.4 L 3.3 L (3.5-5.1) mEq/L Chloride 95 L 94 L (98-107) mEq/L Carbon Dioxide 22 L 24 (23-29) mEq/L BUN 5 L 3 L (6-20) mg/dL Creatinine 0.35 L 0.46 L (0.60-1.20) mg/dL Glucose 260 H 150 H (70-105) mg/dL Calcium 7.6 L 8.8 (8.6-10.3) mg/dL TSH (0.340-5.600) mcIU/mL 02/14/18 Range/Units 06:53 Sodium 125 L (136-145) mEq/L Potassium 3.7 (3.5-5.1) mEq/L Chloride 96 L (98-107) mEq/L Carbon Dioxide 23 (23-29) mEq/L BUN 3 L (6-20) mg/dL Creatinine 0.38 L (0.60-1.20) mg/dL Glucose 187 H (70-105) mg/dL Calcium 8.7 (8.6-10.3) mg/dL TSH 0.610 (0.340-5.600) mcIU/mL Adrenal panel 02/13/18 02/13/18 02/13/18 Range/Units 08:04 11:14 12:50 Sodium 124 L 124 L 122 L (136-145) mEq/L Potassium (3.5-5.1) mEq/L Chloride (98-107) mEq/L Carbon Dioxide (23-29) mEq/L BUN (6-20) mg/dL Creatinine (0.60-1.20) mg/dL Glucose (70-105) mg/dL Calcium (8.6-10.3) mg/dL 02/13/18 02/13/18 02/13/18 Range/Units 14:50 15:46 17:46 Sodium 123 L 123 L 126 L (136-145) mEq/L Potassium 3.6 (3.5-5.1) mEq/L Chloride 95 L (98-107) mEq/L Carbon Dioxide 23 (23-29) mEq/L BUN 5 L (6-20) mg/dL Creatinine 0.42 L (0.60-1.20) mg/dL Glucose 280 H (70-105) mg/dL Calcium 7.4 L (8.6-10.3) mg/dL 02/13/18 02/13/18 02/14/18 Range/Units 19:42 22:13 02:26 Sodium 122 L 124 L 125 L (136-145) mEq/L Potassium 3.4 L 3.3 L (3.5-5.1) mEq/L Chloride 95 L 94 L (98-107) mEq/L Carbon Dioxide 22 L 24 (23-29) mEq/L BUN 5 L 3 L (6-20) mg/dL Creatinine 0.35 L 0.46 L (0.60-1.20) mg/dL Glucose 260 H 150 H (70-105) mg/dL Calcium 7.6 L 8.8 (8.6-10.3) mg/dL 02/14/18 Range/Units 06:53 Sodium 125 L (136-145) mEq/L Potassium 3.7 (3.5-5.1) mEq/L Chloride 96 L (98-107) mEq/L Carbon Dioxide 23 (23-29) mEq/L BUN 3 L (6-20) mg/dL Creatinine 0.38 L (0.60-1.20) mg/dL Glucose 187 H (70-105) mg/dL Calcium 8.7 (8.6-10.3) mg/dL All other labs normal. - Attending Attestation patient seen and examined. I have reviewed all labs, imaging, and notes. I have discussed the case in detail with the resident. I agree with the above assessment and plan and wish to add the following... 42F h/o poorly controlled DM, uncontrolled HLD (likley contributing or causing pancreatitis as her GB is removed) with recurrent pancreatitis with associated splenomegaly. No history of isolated varices nor GI bleeding. Abd is tender, non peritoneal. CT was obtained, which was reviewed and interpreted by me which demonstrates no evidence of necrosis, nor infected necrosis, colitis, abscess; elevated WBC, likley reactive to underlying disease; control of DM, HLD management of electrolytes by primary team no need for abx, but if WBC continues to worsen or patient begins to decline, would recommend repeat CT to re-eval for necrosis fluid resuscitation per primary patient will need abd US to eval the splenic vein to rule out thrombosis no acute surgery will cont to follow
[2018-02-13 16:00] LABS: Mean Platelet Volume 8.3 fL (9.4-12.4)
[2018-02-13 16:01] LABS: Hematocrit 36.9 % (35.3-44.9); Mean Corpuscular Volume 79.2 fL (83.0-100.0); Platelet Count 722 K/mcL (140-400); Red Blood Count 4.66 M/mcL (3.82-4.97); Red Cell Distribution Width 14.6 % (11.5-14.5)
[2018-02-13 16:38] LABS: INR 1.2; Prothrombin Time 13.2 Seconds (9.4-12.1)
[2018-02-13 16:59] LABS: Hemoglobin 11.9 g/dL (11.5-15.4)
[2018-02-13 17:02] LABS: Mean Corpuscular Hemoglobin 25.5 pg (28.0-33.3)
[2018-02-13 17:03] LABS: Mean Corpuscular HGB Conc 32.2 g/dL (31.6-35.5)
[2018-02-13] MEDS ORDERED: Insulin Regular, Human 100 UNIT/ML IV PRN (17:31)
[2018-02-13] MEDS ORDERED: Insulin Human Regular 100 UNIT in 0.9 % Sodium Chloride 100 ML IVC SCH (17:45)
--- NOTE | 2018-02-13 18:08 | Oncology Inp Consult Note ---
Date of Encounter: 02/13/18 Time of Encounter: 17:49 Assessment and Plan (1) Acute pancreatitis Status: Acute Assessment and plan: Recurrent pancreatitis with high triglycerides level and poorly controlled type 1 diabetes mellitus. Currently there is no evidence of splenic vein thrombosis. Mild splenomegaly. There is no cirrhosis by morphology. Qualifiers: Pancreatitis type: other Acute pancreatitis complication: unspecified Qualified Code(s): K85.80 - Other acute pancreatitis without necrosis or infection (2) Leucocytosis Status: Acute Assessment and plan: Her neutrophil counts during this admission 12,000. Most likely this is from acute pancreatitis. The neutrophil counts were normal on 02/02/2018 at 3500. She had fluctuation in her neutrophils and most part it is mildly elevated around 12,000. Normal values in between Also elevated platelet count of 720 K. Her platelet count has been normal in the past with value of 229,000 on 02/02/2018. It has been as high as 1400 on 01/31/2018 when he had her pancreatitis. Also mildly elevated lymphocyte count 4900. For the most part her lymphocyte count stayed below 5000 with average of 2500 Most likely elevated neutrophil counts and platelets are acute reaction to pancreatitis. 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 Also peripheral smear. Her B12 folate TSH normal. Ferritin 300 Qualifiers: Leukocytosis type: unspecified Qualified Code(s): D72.829 - Elevated white blood cell count, unspecified - Data of Consult Patient: known to practice within the last 3 years Requesting Physician: Shubham Fraga MD Primary Care Provider: Ami Romero MD - Consult Narrative Reason for consult: Elevated neutrophil counts and platelets. Possible splenic vein thrombosis History of present illness: Admitted with acute pancreatitis symptomatic with epigastric and abdominal pain Gen. surgery consult noted and they recommended conservative management She had acute pancreatitis last week and discharged recently. She was evaluated by Dr. Vega oncology for thrombocytosis She has type 1 diabetes on insulin pump. Current glucose 346 02/13/2018. Her blood glucose usually ranges around 200 She also has high triglycerides during this admission 4100. On 02/01/2018 was 2300. Her triglycerides have been high in the past as well. Her lipase is around 480. Lipase was 100 6S today and 188 on 02/01/2018. The highest level was more than 1800 01/31/2018 She had a noncontrast CT abdomen and pelvis 02/13/2018 showed splenomegaly possible portal vein thrombosis because of that and hypodense lesion in the spleen This was followed by CT abdomen and pelvis with IV contrast 02/12/2018 showed no evidence of splenic vein thrombosis. Splenomegaly 15 cm and it was 14 cm on 01/31/2018. On inferior splaying the rest 19 cm hypodense lesion which was stable from before consistent with benign etiology She quit drinking alcohol 7 years ago. She used to be a alcoholic prior to that with almost every day drinking Past Med Surg Social Fam HX - Past Medical History Medical history: non-contributory, diabetes, hyperlipidemia, hypertension Additional medical history: ICH Psychiatric history: bipolar - Past Surgical History Surgical History: cholecystectomy, other Additional surgical history: Tubal ligation, carpal tunnel - Social History Smoking Status: Never smoker Smokeless Tobacco Status: No Alcohol use: none Drug use: none - Family History Maternal Grandmother Living Status: Hx Family Cardiac Disorders: Yes Hx Family Respiratory Disorders: Yes Hx Family Cancer: No Hx Family GI Disorders: No Hx Family Endocrine Disorder: Yes Hx Family Neuromuscular Disorders: No Hx Family Neurologic Disorders: No Hx Family HEENT Disorders: No Hx Family Autoimmune Disorders: No Medications and Allergies Gabapentin [Neurontin] 300 mg PO TID 03/04/15 [History] Lisinopril [Zestril] 20 mg PO QAM 03/04/15 [History] Metoprolol [Lopressor] 50 mg PO BID 03/04/15 [History] Ziprasidone HCl [Geodon] 40 mg PO QAM 03/04/15 [History] Venlafaxine HCl [Venlafaxine HCl ER] 150 mg PO DAILY 01/31/18 [History] Ziprasidone HCl [Geodon] 60 mg PO HS 01/31/18 [History] raNITIdine HCl [Zantac] 150 mg PO BID 01/31/18 [History] Insulin DETEMIR [Levemir] 20 unit SQ HS 30 Days #10 [id number] 02/02/18 [Rx] Insulin LISPRO [HumaLOG] 7 units SQ TIDAC 30 Days #10 vial 02/02/18 [Rx] LORazepam [Ativan] 0.5 mg PO BID 02/13/18 [History] Allergy/AdvReac Type Severity Reaction Status Date / Time No Known Drug Allergies Allergy See Verified 03/04/15 10:49 Comments Review of systems: Alert and oriented. Abdominal/epigastric pain which got worse in the last few days. No fever chills. Shortness of breath with exertion. Chest discomfort. Denied major headaches. Joint pain muscle pain and fatigue Oncology - Exam - Constitutional Exam: GENERAL: Alert and oriented, well appearing. Mental Status: Affect appropriate for circumstances HEENT: Sclerae anicteric. No mucositis or thrush. No other oral or pharyngeal lesions or erythema. Skin: No rashes or petechiae. No evidence of skin malignancy Lymph nodes: No cervical, supraclavicular, axillary, or inguinal adenopathy. Lungs: Air entry normal with normal breath sounds. No rhonchi or wheezing Cardiovascular: Regular rate and rhythm. No skipped beats Abdomen: Epigastric and upper quadrant tenderness. No guarding. Bowel sounds are active. Extremities: No edema. No calf swelling or tenderness. No joint deformity. Neurologic: Alert, cranial nerves II-XII intact; normal gait; no focal weakness or sensory abnormalities Consult Discharge Plan - Plan Referrals: Ami Romero MD [Primary Care Provider] - Inpatient Charges Provider: Dr. Kailee Ruggiero Consult - Inpatient: [id number]
[2018-02-13 18:48] LABS: Sodium 126 mEq/L (136-145)
[2018-02-13 19:04] LABS: BUN/Creatinine Ratio 12 (6-26); Blood Urea Nitrogen 5 mg/dL (6-20); Calcium 7.4 mg/dL (8.6-10.3); Carbon Dioxide 23 mEq/L (23-29); Chloride 95 mEq/L (98-107); Glucose 280 mg/dL (70-105); Osmolality,Calculated 269 (280-300); Potassium 3.6 mEq/L (3.5-5.1); eGFR For Non-African Americans > 60 (> 60)
[2018-02-13] MEDS: Insulin Human Regular 100 UNIT in 0.9 % Sodium Chloride 100 ML IVC SCH (19:21)
[2018-02-13] MEDS: D5% in 0.9% NACL w KCl 20 MEQ/1,000 ML MLS IVC SCH (20:42)
[2018-02-13 23:33] LABS: BUN/Creatinine Ratio 14 (6-26); Blood Urea Nitrogen 5 mg/dL (6-20); Calcium 7.6 mg/dL (8.6-10.3); Carbon Dioxide 22 mEq/L (23-29); Chloride 95 mEq/L (98-107); Glucose 260 mg/dL (70-105); Osmolality,Calculated 264 (280-300); Potassium 3.4 mEq/L (3.5-5.1); Sodium 124 mEq/L (136-145); eGFR For Non-African Americans > 60 (> 60)
[2018-02-14] MEDS: OXYCODONE Oral CONC 10 MG/0.5 ML ORAL.SYG SL PRN ×5 (00:06→20:27)
[2018-02-14 02:54] LABS: BUN/Creatinine Ratio 7 (6-26); Blood Urea Nitrogen 3 mg/dL (6-20); Calcium 8.8 mg/dL (8.6-10.3); Carbon Dioxide 24 mEq/L (23-29); Chloride 94 mEq/L (98-107); Glucose 150 mg/dL (70-105); Osmolality,Calculated 259 (280-300); Potassium 3.3 mEq/L (3.5-5.1); Sodium 125 mEq/L (136-145); eGFR For Non-African Americans > 60 (> 60)
[2018-02-14] MEDS ORDERED: Potassium Chloride 40 MEQ, Lidocaine 1% 2 ML in D5% in Water 500 ML IVPB ONE (03:17)
[2018-02-14] MEDS: Insulin Human Regular 100 UNIT in 0.9 % Sodium Chloride 100 ML IVC SCH ×4 (03:37→19:34)
[2018-02-14] MEDS ORDERED: *HR* Enoxaparin 40 MG/0.4 ML SYRINGE SQ SCH (06:00)
[2018-02-14 07:22] LABS: Basophils # 0.1 K/mcL (0.0-0.2); Basophils % 0.4 %; Eosinophils # 0.1 K/mcL (0.0-0.6); Eosinophils % 0.3 %; Immature Granulocytes % 1.6 % (0-4); Lymphocytes # 3.6 K/mcL (0.6-4.6); Lymphocytes % 10.2 %; Mean Corpuscular Volume 77.9 fL (83.0-100.0); Mean Platelet Volume 8.3 fL (9.4-12.4); Monocytes # 3.8 K/mcL (0.0-1.3); Monocytes % 10.9 %; Neutrophils # 26.7 K/mcL (1.6-8.9); Platelet Count 842 K/mcL (140-400); Red Blood Count 4.62 M/mcL (3.82-4.97); Red Cell Distribution Width 15.3 % (11.5-14.5); Segmented Neutrophils % 76.6 %
[2018-02-14 07:24] LABS: Hemoglobin 12.8 g/dL (11.5-15.4)
[2018-02-14 07:25] LABS: Mean Corpuscular Hemoglobin 27.7 pg (28.0-33.3)
[2018-02-14 07:27] LABS: Mean Corpuscular HGB Conc 35.5 g/dL (31.6-35.5)
[2018-02-14 07:30] LABS: BUN/Creatinine Ratio 8 (6-26); Blood Urea Nitrogen 3 mg/dL (6-20); Calcium 8.7 mg/dL (8.6-10.3); Carbon Dioxide 23 mEq/L (23-29); Chloride 96 mEq/L (98-107); Glucose 187 mg/dL (70-105); Osmolality,Calculated 261 (280-300); Potassium 3.7 mEq/L (3.5-5.1); Sodium 125 mEq/L (136-145); eGFR For Non-African Americans > 60 (> 60)
[2018-02-14 07:55] LABS: Folate 19.8 ng/mL (3.0-16.0)
[2018-02-14] MEDS: Piperacillin/Tazobactam 3.375 GM in 0.9 % Sodium Chloride Mini Bag 100 ML IVPB SCH ×3 (08:20→23:28)
--- NOTE | 2018-02-14 08:26 | General Surgery Progress Note ---
Date of Encounter: 02/14/18 Time of Encounter: 08:24 - Assessment and Plan (1) Recurrent acute pancreatitis Current Visit: Yes Status: Acute 42F h/o uncontrolled Dm, HLD, obesity, recurrent pancreatitis (potentially related to HLD vs idiopathic) with recurrent pancreatitis and potentially DKA; now with worsening WBC, no evidence of necrosis, abscess, infected necrosis, colitis, nor ischemia; non peritoneal on exam NPO IVF replace electrolytes abx per primary team: consider merrem if condition worsens or WBC continues to rise, consider repeating CT scan to re- evaluate for necrosis/infected necrosis no acute surgery will cont to follow Subjective Patient reports: no new complaints, still having pain, bowel movement, afebrile Objective Vital Signs - Last 8 Hours Temp Pulse Resp BP Pulse Ox 02/14/18 07:29 98.6 F 108 16 164/90 96 02/14/18 04:24 98.6 F 106 16 168/90 94 Intake and Output 02/13/18 02/14/18 02/14/18 23:59 07:59 15:59 Intake Total 134.5 / 134.5 194.6 / 194.6 Balance 134.5 / 134.5 194.6 / 194.6 Intake: IV Fluids 134.5 / 134.5 194.6 / 194.6 HumuLIN R 100 UNIT In 0.9 % 34.5 / 34.5 94.6 / 94.6 Sodium Chloride 100 ML @ 1 UNIT /HR 1.01 mls/hr IVC CONT [facility] Rx #:[id number] Zosyn 3.375 GM In 0.9 % Sodium 100 / 100 100 / 100 Chloride (Mini-Bag +) 100 ML @ 25 mls/hr IVPB Q8HR [facility] Rx#: [id number] Oral 0 / 0 Other: Meal NPO Percent of Meal Consumed 0% Weight 83.4 kg Blood Glucose* 219 199 199 Patient Weight 02/14/18 23:59 Weight 83.4 kg - General physical appearance no distress - Respiratory normal expansion, normal respiratory effort - Cardiovascular Cardiovascular exam: Present: RRR - Abdomen Abdomen: Present: soft, tender (non peritoneal) Abdominal Tenderness: epigastic - Neurologic CN 2-12 grossly intact - Psychiatric oriented to time, oriented to person, oriented to place - Labs 02/14/18 06:53 02/14/18 06:53 Diabetes panel 02/13/18 02/13/18 02/13/18 Range/Units 08:04 11:14 12:50 Sodium 124 L 124 L 122 L (136-145) mEq/L Potassium (3.5-5.1) mEq/L Chloride (98-107) mEq/L Carbon Dioxide (23-29) mEq/L BUN (6-20) mg/dL Creatinine (0.60-1.20) mg/dL Glucose (70-105) mg/dL Calcium (8.6-10.3) mg/dL 02/13/18 02/13/18 02/13/18 Range/Units 14:50 15:46 17:46 Sodium 123 L 123 L 126 L (136-145) mEq/L Potassium 3.6 (3.5-5.1) mEq/L Chloride 95 L (98-107) mEq/L Carbon Dioxide 23 (23-29) mEq/L BUN 5 L (6-20) mg/dL Creatinine 0.42 L (0.60-1.20) mg/dL Glucose 280 H (70-105) mg/dL Calcium 7.4 L (8.6-10.3) mg/dL 02/13/18 02/13/18 02/14/18 Range/Units 19:42 22:13 02:26 Sodium 122 L 124 L 125 L (136-145) mEq/L Potassium 3.4 L 3.3 L (3.5-5.1) mEq/L Chloride 95 L 94 L (98-107) mEq/L Carbon Dioxide 22 L 24 (23-29) mEq/L BUN 5 L 3 L (6-20) mg/dL Creatinine 0.35 L 0.46 L (0.60-1.20) mg/dL Glucose 260 H 150 H (70-105) mg/dL Calcium 7.6 L 8.8 (8.6-10.3) mg/dL 02/14/18 Range/Units 06:53 Sodium 125 L (136-145) mEq/L Potassium 3.7 (3.5-5.1) mEq/L Chloride 96 L (98-107) mEq/L Carbon Dioxide 23 (23-29) mEq/L BUN 3 L (6-20) mg/dL Creatinine 0.38 L (0.60-1.20) mg/dL Glucose 187 H (70-105) mg/dL Calcium 8.7 (8.6-10.3) mg/dL Thyroid panel 02/14/18 Range/Units 06:53 TSH 0.610 (0.340-5.600) mcIU/mL Calcium panel 02/13/18 02/13/18 02/14/18 Range/Units 17:46 22:13 02:26 Calcium 7.4 L 7.6 L 8.8 (8.6-10.3) mg/dL 02/14/18 Range/Units 06:53 Calcium 8.7 (8.6-10.3) mg/dL Pituitary panel 02/13/18 02/13/18 02/13/18 Range/Units 08:04 11:14 12:50 Sodium 124 L 124 L 122 L (136-145) mEq/L Potassium (3.5-5.1) mEq/L Chloride (98-107) mEq/L Carbon Dioxide (23-29) mEq/L BUN (6-20) mg/dL Creatinine (0.60-1.20) mg/dL Glucose (70-105) mg/dL Calcium (8.6-10.3) mg/dL TSH (0.340-5.600) mcIU/mL 02/13/18 02/13/18 02/13/18 Range/Units 14:50 15:46 17:46 Sodium 123 L 123 L 126 L (136-145) mEq/L Potassium 3.6 (3.5-5.1) mEq/L Chloride 95 L (98-107) mEq/L Carbon Dioxide 23 (23-29) mEq/L BUN 5 L (6-20) mg/dL Creatinine 0.42 L (0.60-1.20) mg/dL Glucose 280 H (70-105) mg/dL Calcium 7.4 L (8.6-10.3) mg/dL TSH (0.340-5.600) mcIU/mL 02/13/18 02/13/18 02/14/18 Range/Units 19:42 22:13 02:26 Sodium 122 L 124 L 125 L (136-145) mEq/L Potassium 3.4 L 3.3 L (3.5-5.1) mEq/L Chloride 95 L 94 L (98-107) mEq/L Carbon Dioxide 22 L 24 (23-29) mEq/L BUN 5 L 3 L (6-20) mg/dL Creatinine 0.35 L 0.46 L (0.60-1.20) mg/dL Glucose 260 H 150 H (70-105) mg/dL Calcium 7.6 L 8.8 (8.6-10.3) mg/dL TSH (0.340-5.600) mcIU/mL 02/14/18 Range/Units 06:53 Sodium 125 L (136-145) mEq/L Potassium 3.7 (3.5-5.1) mEq/L Chloride 96 L (98-107) mEq/L Carbon Dioxide 23 (23-29) mEq/L BUN 3 L (6-20) mg/dL Creatinine 0.38 L (0.60-1.20) mg/dL Glucose 187 H (70-105) mg/dL Calcium 8.7 (8.6-10.3) mg/dL TSH 0.610 (0.340-5.600) mcIU/mL Adrenal panel 02/13/18 02/13/18 02/13/18 Range/Units 08:04 11:14 12:50 Sodium 124 L 124 L 122 L (136-145) mEq/L Potassium (3.5-5.1) mEq/L Chloride (98-107) mEq/L Carbon Dioxide (23-29) mEq/L BUN (6-20) mg/dL Creatinine (0.60-1.20) mg/dL Glucose (70-105) mg/dL Calcium (8.6-10.3) mg/dL 02/13/18 02/13/18 02/13/18 Range/Units 14:50 15:46 17:46 Sodium 123 L 123 L 126 L (136-145) mEq/L Potassium 3.6 (3.5-5.1) mEq/L Chloride 95 L (98-107) mEq/L Carbon Dioxide 23 (23-29) mEq/L BUN 5 L (6-20) mg/dL Creatinine 0.42 L (0.60-1.20) mg/dL Glucose 280 H (70-105) mg/dL Calcium 7.4 L (8.6-10.3) mg/dL 02/13/18 02/13/18 02/14/18 Range/Units 19:42 22:13 02:26 Sodium 122 L 124 L 125 L (136-145) mEq/L Potassium 3.4 L 3.3 L (3.5-5.1) mEq/L Chloride 95 L 94 L (98-107) mEq/L Carbon Dioxide 22 L 24 (23-29) mEq/L BUN 5 L 3 L (6-20) mg/dL Creatinine 0.35 L 0.46 L (0.60-1.20) mg/dL Glucose 260 H 150 H (70-105) mg/dL Calcium 7.6 L 8.8 (8.6-10.3) mg/dL 02/14/18 Range/Units 06:53 Sodium 125 L (136-145) mEq/L Potassium 3.7 (3.5-5.1) mEq/L Chloride 96 L (98-107) mEq/L Carbon Dioxide 23 (23-29) mEq/L BUN 3 L (6-20) mg/dL Creatinine 0.38 L (0.60-1.20) mg/dL Glucose 187 H (70-105) mg/dL Calcium 8.7 (8.6-10.3) mg/dL Consult Discharge Plan - Plan Referrals: Ami Romero MD [Primary Care Provider] -
[2018-02-14 09:03] LABS: Triglycerides 2025 mg/dL (< 150)
[2018-02-14 09:47] LABS: Microcytosis Present (Not Present); Platelet Estimate Increased (Normal)
[2018-02-14 10:07] LABS: Ferritin 299 ng/mL (10-120); Triglycerides 1788 mg/dL (< 150)
[2018-02-14] MEDS: D5% in 0.9% NACL w KCl 20 MEQ/1,000 ML MLS IVC SCH ×2 (10:10→23:28)
[2018-02-14 10:41] LABS: BUN/Creatinine Ratio 5 (6-26); Blood Urea Nitrogen 2 mg/dL (6-20); Calcium 8.6 mg/dL (8.6-10.3); Carbon Dioxide 21 mEq/L (23-29); Chloride 97 mEq/L (98-107); Glucose 159 mg/dL (70-105); Osmolality,Calculated 260 (280-300); Potassium 3.6 mEq/L (3.5-5.1); Sodium 125 mEq/L (136-145); eGFR For Non-African Americans > 60 (> 60)
[2018-02-14 15:21] LABS: BUN/Creatinine Ratio 5 (6-26); Blood Urea Nitrogen 2 mg/dL (6-20); Calcium 8.8 mg/dL (8.6-10.3); Carbon Dioxide 21 mEq/L (23-29); Chloride 97 mEq/L (98-107); Glucose 115 mg/dL (70-105); Osmolality,Calculated 257 (280-300); Potassium 3.6 mEq/L (3.5-5.1); Sodium 125 mEq/L (136-145); eGFR For Non-African Americans > 60 (> 60)
--- NOTE | 2018-02-14 15:30 | Nephrology Progress Note ---
Date of Encounter: 02/14/18 Time of Encounter: 12:00 - Assessment and Plan (1) Hyponatremia Current Visit: Yes Status: Acute Sodium stabilized at 125 Continue fluid restriction Continue salt in diet when able to eat Can reduce serial sodium checks to twice a day at this point Limit obligate fluids and place all iv meds in saline if possible (2) HTN (hypertension) Current Visit: No Status: Chronic Qualifiers: Hypertension type: essential hypertension Qualified Code(s): I10 - Essential (primary) hypertension (3) Bipolar 1 disorder Current Visit: No Status: Chronic (4) Hyperglycemia Current Visit: Yes Status: Acute Insulin gtt per protocol, managed by primary team (5) Acute pancreatitis Current Visit: Yes Status: Acute Surgery following and NPO Qualifiers: Pancreatitis type: other Acute pancreatitis complication: unspecified Qualified Code(s): K85.80 - Other acute pancreatitis without necrosis or infection Subjective Interval history: Interim events noted, pt seen and examined with hyponatremia in the setting of hyperglycemia now on insulin gtt with polydipsia Objective - Vital Signs Vital signs: Vital Signs Temp Pulse Resp BP Pulse Ox 02/14/18 14:23 103 18 02/14/18 12:25 97 16 02/14/18 11:00 99 16 02/14/18 10:59 98.6 F 104 16 155/83 95 02/14/18 08:45 115 02/14/18 07:29 98.6 F 108 16 164/90 96 02/14/18 04:24 98.6 F 106 16 168/90 94 02/13/18 23:59 99.4 F 96 19 167/87 95 02/13/18 21:20 150/81 02/13/18 20:49 162/94 02/13/18 18:58 98.6 F 82 16 174/94 99 02/13/18 18:45 85 174/94 02/13/18 17:07 98.6 F 79 18 174/93 96 Intake and Output 02/13/18 02/14/18 02/14/18 23:59 07:59 15:59 Intake Total 134.5 / 134.5 194.6 / 194.6 1177 / 1177 Output Total 500 / 500 Balance 134.5 / 134.5 194.6 / 194.6 677 / 677 Intake: IV Fluids 134.5 / 134.5 194.6 / 194.6 1177 / 1177 KCl 20mEq in D5-0.9 NaCl 20 meq 1000 / 1000 In 1,000 ml @ 75 mls/hr IVC . [id number] [facility] Rx#:[id number] HumuLIN R 100 UNIT In 0.9 % 34.5 / 34.5 94.6 / 94.6 177 / 177 Sodium Chloride 100 ML @ 1 UNIT /HR 1.01 mls/hr IVC CONT [facility] Rx #:[id number] Zosyn 3.375 GM In 0.9 % Sodium 100 / 100 100 / 100 Chloride (Mini-Bag +) 100 ML @ 25 mls/hr IVPB Q8HR [facility] Rx#: [id number] Oral 0 / 0 Output: Urine 500 / 500 Other: Meal NPO NPO Percent of Meal Consumed 0% 0% Weight 83.4 kg Blood Glucose* 219 199 145 Patient Weight 02/14/18 23:59 Weight 83.4 kg - Lab 02/14/18 06:53 02/14/18 14:14 Most recent lab results Calcium 8.8 mg/dL (8.6-10.3) 02/14/18 14:14 Phosphorus 2.8 mg/dL (2.7-4.5) 02/13/18 02:53 Magnesium 1.4 mg/dL (1.6-2.6) L 02/13/18 02:53 Urine Creatinine 15 mg/dL 02/12/18 17:20 Urine Sodium 240.8 mEq/L 02/14/18 12:05 Consult Discharge Plan - Plan Referrals: Ami Romero MD [Primary Care Provider] - 02/25/18 4:30 pm
[2018-02-14 15:52] LABS: Iron < 10 mcg/dL (50-170); Transferrin 216 mg/dL (203-362)
[2018-02-14 16:10] LABS: LDL Cholesterol,Direct 42 mg/dL (75-193)
[2018-02-14 22:38] LABS: BUN/Creatinine Ratio 7 (6-26); Blood Urea Nitrogen 2 mg/dL (6-20); Calcium 7.4 mg/dL (8.6-10.3); Carbon Dioxide 19 mEq/L (23-29); Chloride 94 mEq/L (98-107); Glucose 172 mg/dL (70-105); Osmolality,Calculated 254 (280-300); Potassium 3.8 mEq/L (3.5-5.1); Sodium 122 mEq/L (136-145); eGFR For Non-African Americans > 60 (> 60)
[2018-02-15] MEDS: Piperacillin/Tazobactam 3.375 GM in 0.9 % Sodium Chloride Mini Bag 100 ML IVPB SCH ×3 (07:36→23:33)
[2018-02-15] MEDS: Insulin Human Regular 100 UNIT in 0.9 % Sodium Chloride 100 ML IVC SCH ×2 (07:40→22:40)
[2018-02-15] MEDS: D5% in 0.9% NACL w KCl 20 MEQ/1,000 ML MLS IVC SCH (11:44)
[2018-02-15 11:56] LABS: Basophils # 0.1 K/mcL (0.0-0.2); Basophils % 0.3 %; Eosinophils # 0.2 K/mcL (0.0-0.6); Eosinophils % 1.1 %; Hematocrit 35.9 % (35.3-44.9); Immature Granulocytes % 1.4 % (0-4); Lymphocytes # 2.1 K/mcL (0.6-4.6); Lymphocytes % 12.7 %; Mean Corpuscular HGB Conc 35.1 g/dL (31.6-35.5); Mean Corpuscular Hemoglobin 27.9 pg (28.0-33.3); Mean Corpuscular Volume 79.6 fL (83.0-100.0); Mean Platelet Volume 9.5 fL (9.4-12.4); Monocytes # 1.8 K/mcL (0.0-1.3); Monocytes % 10.8 %; Neutrophils # 12.1 K/mcL (1.6-8.9); Platelet Count 291 K/mcL (140-400); Red Blood Count 4.51 M/mcL (3.82-4.97); Red Cell Distribution Width 15.3 % (11.5-14.5); Segmented Neutrophils % 73.7 %
[2018-02-15 11:58] LABS: Hemoglobin 12.6 g/dL (11.5-15.4)
[2018-02-15 12:32] LABS: BUN/Creatinine Ratio 11 (6-26); Blood Urea Nitrogen 4 mg/dL (6-20); Calcium 8.6 mg/dL (8.6-10.3); Carbon Dioxide 21 mEq/L (23-29); Chloride 102 mEq/L (98-107); Chol/HDL Ratio 32.8 (0-4.9); Cholesterol 525 mg/dL (< 200); Glucose 146 mg/dL (70-105); HDL Cholesterol 16 mg/dL (40-59); Osmolality,Calculated 272 (280-300); Potassium 4.4 mEq/L (3.5-5.1); Sodium 131 mEq/L (136-145); Triglycerides 721 mg/dL (< 150); eGFR For Non-African Americans > 60 (> 60)
[2018-02-15] MEDS: *HR* Heparin 5,000 UNIT/ML VIAL SQ SCH ×2 (14:49→20:58)
--- NOTE | 2018-02-15 16:56 | Nephrology Progress Note ---
Date of Encounter: 02/15/18 Time of Encounter: 14:00 - Assessment and Plan (1) Hyponatremia Current Visit: Yes Status: Acute Sodium now at 131 from a drop of 121. Not clear if real or not. Will recheck by am Continue IVF with saline for now while NPO and on insulin regimen Will increased sodium in diet when able to eat (2) HTN (hypertension) Current Visit: No Status: Chronic Qualifiers: Hypertension type: essential hypertension Qualified Code(s): I10 - Essential (primary) hypertension (3) Bipolar 1 disorder Current Visit: No Status: Chronic (4) Hyperglycemia Current Visit: Yes Status: Acute (5) Acute pancreatitis Current Visit: Yes Status: Acute Qualifiers: Pancreatitis type: other Acute pancreatitis complication: unspecified Qualified Code(s): K85.80 - Other acute pancreatitis without necrosis or infection Subjective Interval history: Pt seen and examined feeling better today with minimal GI symptoms but still NPO. Still on insulin with IVF Objective - Vital Signs Vital signs: Vital Signs Temp Pulse Resp BP Pulse Ox 02/15/18 12:04 99.0 F 87 16 121/74 02/15/18 07:00 94 02/15/18 06:42 98.2 F 94 18 153/88 97 02/15/18 04:27 98.1 F 99 18 136/83 95 02/14/18 23:17 99.5 F 93 18 133/76 92 02/14/18 19:13 98.2 F 103 18 156/87 92 02/14/18 17:47 102 16 02/14/18 17:34 98.6 F Intake and Output 02/15/18 02/15/18 02/15/18 07:59 15:59 23:59 Intake Total 168.6 / 168.6 1105.97 / 1105.97 5.2 / 5.2 Output Total 800 / 800 Balance -631.4 / -631.4 1105.97 / 1105.97 5.2 / 5.2 Intake: IV Fluids 168.6 / 168.6 1105.97 / 1105.97 5.2 / 5.2 KCl 20mEq in D5-0.9 NaCl 20 meq 939 / 939 In 1,000 ml @ 75 mls/hr IVC . [id number] [facility] Rx#:[id number] HumuLIN R 100 UNIT In 0.9 % 68.6 / 68.6 66.97 / 66.97 5.2 / 5.2 Sodium Chloride 100 ML @ 1 UNIT /HR 1.01 mls/hr IVC CONT [facility] Rx #:[id number] Zosyn 3.375 GM In 0.9 % Sodium 100 / 100 100 / 100 Chloride (Mini-Bag +) 100 ML @ 25 mls/hr IVPB Q8HR [facility] Rx#: [id number] Output: Urine 800 / 800 Other: Weight 84.2 kg Blood Glucose* 167 112 137 Patient Weight 02/15/18 23:59 Weight 84.2 kg - General Appearance General appearance: Present: well-developed, well-nourished EENT: Present: ATNC, mucous membranes moist Neck: Present: no JVD, supple Respiratory: Present: clear Cardiology: Present: no edema, normal S1, normal S2 Gastrointestinal: Present: no tenderness, no guarding Integumentary: Present: warm and dry Neurologic: Present: no focal deficit Musculoskeletal: Present: no deformities Psychiatric: Present: mood/affect appropriate - Lab 02/15/18 11:34 02/15/18 11:34 Most recent lab results Calcium 8.6 mg/dL (8.6-10.3) 02/15/18 11:34 Phosphorus 2.8 mg/dL (2.7-4.5) 02/13/18 02:53 Magnesium 1.4 mg/dL (1.6-2.6) L 02/13/18 02:53 Urine Creatinine 15 mg/dL 02/12/18 17:20 Urine Sodium 240.8 mEq/L 02/14/18 12:05 Consult Discharge Plan - Plan Referrals: Ami Romero MD [Primary Care Provider] - 02/25/18 4:30 pm
--- NOTE | 2018-02-15 18:19 | Internal Med Progress Note ---
Hospitalist Progress Note - Encounter Date of Encounter: 02/15/18 Time of Encounter: 09:00 - Subjective Interval History: Patient is still complaining of mild abdominal pain. No nausea or vomiting. - Exam Vitals: Temp Pulse Resp BP Pulse Ox 98.2 F 86 18 134/81 100 02/15/18 16:58 02/15/18 16:58 02/15/18 16:58 02/15/18 16:58 02/15/18 16:58 Exam: Exam: EXAM: General: Alert, oriented 4, not in distress HEENT: Moist mucosa, not pale, normal neck inpsection Chest: R port, clean dressing Cardiovascular: Normal S1 & S2, No JVD. Pulse regular. Lungs: scattered R rhonchi Abdomen: Soft, non-tender, no-distended, no rebound or guarding Neurological: grossly non-focal, no focal deficits, alert, oriented, moves all limbs spontaneously Extremities: No pedal edema Psych: Appropriate affect - Assessment and Plan (1) T2DM (type 2 diabetes mellitus) Current Visit: No Status: Acute Assessment and Plan: Pt admits to medical non-compliance with her meds. Will place on insulin gtt for now and monitor glucose. (2) HTN (hypertension) Current Visit: No Status: Chronic Assessment and Plan: On Metorpolol 12.5 mg PO BID (3) Bipolar 1 disorder Current Visit: No Status: Chronic Assessment and Plan: Will resume home meds when able to tolerate PO meds (4) Anxiety Current Visit: No Status: Chronic Assessment and Plan: On Geodon. (5) Leucocytosis Current Visit: No Status: Acute Assessment and Plan: Pt has had leukocytosis as far back as 03/04/2015. She has only had normal BC twice once 03/06/2015 10.3 and 02/02/2018 6.4. Pt afebrile on admission. Will check CT abd and pelvis since last abdominal CT done 01/31/2018 showed severe pancreatitis. Urine analysis without evidence of infection. Chest x ray showed no acute pulmonary process. Oncology input appreciated. Most likely reactive because of acute pancreatitis. WBC trended down today. (6) Hypertriglyceridemia Current Visit: No Status: Acute Assessment and Plan: Triglycerides 4130. Pt has been non-complaint with her insulin. Will monitor levels and hoepefully should trend down while on Atorvastatin, Fenofibrate and insulin. If persists, will consider insulin gtt. - Trend down to 721 today. (7) Hyponatremia Current Visit: Yes Status: Acute Assessment and Plan: most likely 2/2 osmotic diuresis , urine glucose more than 1000 (pseudohyponatremia), starting normal saline , urine osm, serum osm, nephrology consulting. Fluid restriction for now. - Nephrology consult appreciated. (8) Medical non-compliance Current Visit: Yes Status: Acute Assessment and Plan: Pt strongly advised to comply with her medications (9) Acute pancreatitis Current Visit: Yes Status: Acute Assessment and Plan: Hypertriglyceredemia induced pancreatitis. Pt admits to medical non-compliance with her medications. She states she has not been on medication for about one year. States she keeps forgetting to ask her new PCP to renew her meds. She also admits to not being complaint with her PCP office visits and has not been able to have labs drawn. Her triglycerides on this presentation was 4130. Cont NPO, IVF. Trend lipase. Starting pt on Zosyn for now There was some concern for splenic infarct but CT abdomen and pelvis with IV contrast was negative for splenic thrombosis. DVT Prophylaxis: Heparin subcutaneously - Time Spent with Patient Total time spent is greater than 50% in coordination of care (as documented) at patient's floor/unit and/or counseling patient: 30 minutes 25 - 35 minutes Internal Medicine: Result - Labs CBC & Chem 7: 02/15/18 11:34 02/15/18 11:34 Labs: Short CBC 02/15/18 Range/Units 11:34 WBC 16.4 H D (4.3-11.1) K/mcL Hgb 12.6 (11.5-15.4) g/dL Hct 35.9 (35.3-44.9) % Plt Count 291 D (140-400) K/mcL Neutrophils # 12.1 H (1.6-8.9) K/mcL BMP 02/14/18 02/15/18 20:55 11:34 Sodium 122 L 131 L D Potassium 3.8 4.4 Chloride 94 L 102 Carbon Dioxide 19 L 21 L BUN 2 L 4 L Creatinine 0.29 L 0.36 L Glucose 172 H 146 H Calcium 7.4 L 8.6 - ABG Interpretation ABG results: PT/INR, D-dimer PT 13.2 Seconds (9.4-12.1) H 12/30/18 15:46 - Impressions Impressions Abdomen/Pelvis CT 02/13/18 12:30 IMPRESSION: Findings consistent with acute pancreatitis with increased peripancreatic inflammatory changes compared to prior examination. No evidence of discrete drainable fluid collection to suggest pseudocyst. Secondary duodenitis without evidence of duodenal obstruction. Worsening splenomegaly with severe hypoattenuation of the spleen. In the setting of pancreatitis, splenic vein thrombosis is in the differential diagnosis. Vascular ultrasound could be performed for further evaluation. Unchanged large midline ventral abdominal wall hernia containing mesenteric fat without acute hernia complication. D/ / 02/13/2018 13:42:14 Lacho Oseguera MD / [email or web address] Interpreting Provider: Lacho Oseguera MD Consult Discharge Plan - Plan Referrals: Ami Romero MD [Primary Care Provider] - 02/25/18 4:30 pm (1) T2DM (type 2 diabetes mellitus) Qualifiers: Diabetes mellitus complication status: with ketoacidosis Diabetes mellitus complication detail: without coma Qualified Code(s): E11.10 - Type 2 diabetes mellitus with ketoacidosis without coma; Z79.4 - jail (current) use of insulin (2) HTN (hypertension) Qualifiers: Hypertension type: essential hypertension Qualified Code(s): I10 - Essential (primary) hypertension (5) Leucocytosis Qualifiers: Leukocytosis type: unspecified Qualified Code(s): D72.829 - Elevated white blood cell count, unspecified (9) Acute pancreatitis Qualifiers: Pancreatitis type: other Acute pancreatitis complication: unspecified Qualif ied Code(s): K85.80 - Other acute pancreatitis without necrosis or infection
[2018-02-15] MEDS: D5% in 0.45% NACL 1,000 ML IVC SCH (19:29)
[2018-02-15] MEDS: OXYCODONE Oral CONC 10 MG/0.5 ML ORAL.SYG SL PRN (20:54)
[2018-02-16] MEDS: *HR* Heparin 5,000 UNIT/ML VIAL SQ SCH ×3 (05:37→20:42)
[2018-02-16 06:15] LABS: Basophils % 0.3 %; Eosinophils # 0.2 K/mcL (0.0-0.6); Eosinophils % 2.2 %; Hematocrit 33.7 % (35.3-44.9); Hemoglobin 11.1 g/dL (11.5-15.4); Immature Granulocytes % 0.8 % (0-4); Lymphocytes # 1.9 K/mcL (0.6-4.6); Lymphocytes % 20.4 %; Mean Corpuscular HGB Conc 32.9 g/dL (31.6-35.5); Mean Platelet Volume 9.2 fL (9.4-12.4); Monocytes # 0.9 K/mcL (0.0-1.3); Monocytes % 9.3 %; Neutrophils # 6.3 K/mcL (1.6-8.9); Platelet Count 259 K/mcL (140-400); Red Blood Count 4.11 M/mcL (3.82-4.97); Red Cell Distribution Width 15.8 % (11.5-14.5)
[2018-02-16 06:48] LABS: BUN/Creatinine Ratio 11 (6-26); Blood Urea Nitrogen 5 mg/dL (6-20); Calcium 8.4 mg/dL (8.6-10.3); Carbon Dioxide 22 mEq/L (23-29); Chloride 101 mEq/L (98-107); Chol/HDL Ratio 24.9 (0-4.9); Cholesterol 474 mg/dL (< 200); Glucose 175 mg/dL (70-105); HDL Cholesterol 19 mg/dL (40-59); Lipase 71 Units/L (11-82); Osmolality,Calculated 274 (280-300); Potassium 3.4 mEq/L (3.5-5.1); Sodium 131 mEq/L (136-145); Triglycerides 458 mg/dL (< 150); eGFR For Non-African Americans > 60 (> 60)
[2018-02-16] MEDS ORDERED: D5% in Water 1,000 ML IVC PRN (07:09)
[2018-02-16] MEDS: Piperacillin/Tazobactam 3.375 GM in 0.9 % Sodium Chloride Mini Bag 100 ML IVPB SCH (07:58)
[2018-02-16] MEDS: Insulin LISPRO 300 UNITS/3 ML VIAL SQ SCH ×3 (08:00→17:15)
[2018-02-16] MEDS: D5% in 0.45% NACL 1,000 ML IVC SCH (08:02)
--- NOTE | 2018-02-16 08:11 | General Surgery Progress Note ---
Date of Encounter: 02/16/18 Time of Encounter: 08:09 - Assessment and Plan (1) Recurrent acute pancreatitis Current Visit: Yes Status: Acute 42F h/o uncontrolled Dm, HLD, obesity, recurrent pancreatitis (potentially related to HLD vs idiopathic) with recurrent pancreatitis; WBC improved; minimal pain; patent splenic vessels diet as tolerated cares per primary team no acute surgery general surgery will sign off; please call with any new questions or concerns Subjective Patient reports: no new complaints, feels better, still having pain, pain is less, afebrile Objective Vital Signs - Last 8 Hours Temp Pulse Resp BP Pulse Ox 02/16/18 06:30 79 16 117/67 98 02/16/18 03:28 98.6 F 75 16 130/86 98 Intake and Output 02/15/18 02/16/18 02/16/18 23:59 07:59 15:59 Intake Total 724.7 / 724.7 113.0 / 113.0 1012.4 / 1012.4 Balance 724.7 / 724.7 113.0 / 113.0 1012.4 / 1012.4 Intake: IV Fluids 724.7 / 724.7 113.0 / 113.0 1012.4 / 1012.4 D5% And 0.45% Nacl 1000 Ml Bag 1000 / 1000 1,000 ML @ 75 mls/hr IVC . [id number] [facility] Rx#:[id number] KCl 20mEq in D5-0.9 NaCl 20 meq 585 / 585 In 1,000 ml @ 75 mls/hr IVC . [id number] [facility] Rx#:[id number] HumuLIN R 100 UNIT In 0.9 % 39.7 / 39.7 13.0 / 13.0 12.4 / 12.4 Sodium Chloride 100 ML @ 1 UNIT /HR 1.01 mls/hr IVC CONT [facility] Rx #:[id number] Zosyn 3.375 GM In 0.9 % Sodium 100 / 100 100 / 100 Chloride (Mini-Bag +) 100 ML @ 25 mls/hr IVPB Q8HR [facility] Rx#: [id number] Other: Weight 85.5 kg Blood Glucose* 131 183 Patient Weight 02/16/18 23:59 Weight 85.5 kg - General physical appearance no distress - Respiratory normal expansion, normal respiratory effort - Cardiovascular Cardiovascular exam: Present: RRR - Abdomen Abdomen: Present: soft, tender (minimally tender) Abdominal Tenderness: epigastic - Neurologic CN 2-12 grossly intact - Psychiatric oriented to time, oriented to person, oriented to place - Labs 02/16/18 05:24 02/16/18 05:24 Diabetes panel 02/15/18 02/16/18 02/16/18 Range/Units 11:34 05:24 05:24 Sodium 131 L D 131 L (136-145) mEq/L Potassium 4.4 3.4 L (3.5-5.1) mEq/L Chloride 102 101 (98-107) mEq/L Carbon Dioxide 21 L 22 L (23-29) mEq/L BUN 4 L 5 L (6-20) mg/dL Creatinine 0.36 L 0.44 L (0.60-1.20) mg/dL Glucose 146 H 175 H (70-105) mg/dL Calcium 8.6 8.4 L (8.6-10.3) mg/dL Triglycerides 721 H 460 H 458 H (< 150) mg/dL HDL Cholesterol 16 L 19 L (40-59) mg/dL Calcium panel 02/15/18 02/16/18 Range/Units 11:34 05:24 Calcium 8.6 8.4 L (8.6-10.3) mg/dL Pituitary panel 02/15/18 02/16/18 Range/Units 11:34 05:24 Sodium 131 L D 131 L (136-145) mEq/L Potassium 4.4 3.4 L (3.5-5.1) mEq/L Chloride 102 101 (98-107) mEq/L Carbon Dioxide 21 L 22 L (23-29) mEq/L BUN 4 L 5 L (6-20) mg/dL Creatinine 0.36 L 0.44 L (0.60-1.20) mg/dL Glucose 146 H 175 H (70-105) mg/dL Calcium 8.6 8.4 L (8.6-10.3) mg/dL Adrenal panel 02/15/18 02/16/18 Range/Units 11:34 05:24 Sodium 131 L D 131 L (136-145) mEq/L Potassium 4.4 3.4 L (3.5-5.1) mEq/L Chloride 102 101 (98-107) mEq/L Carbon Dioxide 21 L 22 L (23-29) mEq/L BUN 4 L 5 L (6-20) mg/dL Creatinine 0.36 L 0.44 L (0.60-1.20) mg/dL Glucose 146 H 175 H (70-105) mg/dL Calcium 8.6 8.4 L (8.6-10.3) mg/dL Consult Discharge Plan - Plan Referrals: Ami Romero MD [Primary Care Provider] - 02/25/18 4:30 pm
--- NOTE | 2018-02-16 09:28 | Electrocardiograph Report ---
[address] [address] Test Date: 2018-02-12 Pat Name: Roxane James Department: EXAM5 Room: 2N08 Gender: F [employer]: : 1975 Requested By: Juan Carlos Hernández Order Number: [id number] Reading MD: Prieto Lozada Measurements Intervals [place] Rate: 79 P: 45 WI: 145 QRS: -8 QRSD: 97 T: 43 QT: 383 QTc: 439 Interpretive Statements Sinus rhythm Electronically Signed On 02-16-2018 9:26:32 EST by Prieto Lozada
--- NOTE | 2018-02-16 11:50 | Internal Med Progress Note ---
Hospitalist Progress Note - Encounter Date of Encounter: 02/16/18 Time of Encounter: 09:00 - Subjective Interval History: Patient denies abd pain. No nausea or vomiting. TG level trend down to < 500, d/c insulin drip. Lipase down to normal, will start diet for pt. - Exam Vitals: Temp Pulse Resp BP Pulse Ox 98.6 F 79 16 117/67 98 02/16/18 03:28 02/16/18 06:30 02/16/18 06:30 02/16/18 06:30 02/16/18 06:30 Exam: Exam: EXAM: General: Alert, oriented 4, not in distress HEENT: Moist mucosa, not pale, normal neck inpsection Chest: R port, clean dressing Cardiovascular: Normal S1 & S2, No JVD. Pulse regular. Lungs: scattered R rhonchi Abdomen: Soft, mild tender on deep palpation. no-distended, no rebound or guarding Neurological: grossly non-focal, no focal deficits, alert, oriented, moves all limbs spontaneously Extremities: No pedal edema Psych: Appropriate affect - Assessment and Plan (1) T2DM (type 2 diabetes mellitus) Current Visit: No Status: Acute Assessment and Plan: Pt admits to medical non-compliance with her meds. Cont basal and sliding scale insulin. (2) HTN (hypertension) Current Visit: No Status: Chronic Assessment and Plan: Resume home meds. (3) Bipolar 1 disorder Current Visit: No Status: Chronic Assessment and Plan: Will resume home meds (4) Anxiety Current Visit: No Status: Chronic Assessment and Plan: On Geodon. (5) Leucocytosis Current Visit: No Status: Acute Assessment and Plan: Oncology input appreciated. Most likely reactive because of acute pancreatitis. WBC trended down to normal today. (6) Hypertriglyceridemia Current Visit: No Status: Acute Assessment and Plan: Triglycerides 4130. Pt has been non-complaint with her insulin. Will monitor levels and hoepefully should trend down while on Atorvastatin, Fenofibrate and insulin. If persists, will consider insulin gtt. - Trend down to < 500 today. Insulin drip discontinued. - Start atorvastatin, will also cont ezetimibe and omega 3 on discharge, which pt was on previously. (7) Hyponatremia Current Visit: Yes Status: Acute Assessment and Plan: most likely 2/2 osmotic diuresis , urine glucose more than 1000 (pseudohyponatremia), starting normal saline , urine osm, serum osm, nephrology consulting. Fluid restriction for now. - Nephrology consult appreciated. - Na 131 today (8) Medical non-compliance Current Visit: Yes Status: Acute Assessment and Plan: Pt strongly advised to comply with her medications (9) Acute pancreatitis Current Visit: Yes Status: Acute Assessment and Plan: Hypertriglyceredemia induced pancreatitis. Pt admits to medical non-compliance with her medications. She states she has not been on medication for about one year. States she keeps forgetting to ask her new PCP to renew her meds. She also admits to not being complaint with her PCP office visits and has not been able to have labs drawn. Her triglycerides on this presentation was 4130. Lipase trend down, WBC trend down to normal, will start diet and d/c zosyn. DVT Prophylaxis: Heparin subcutaneously - Time Spent with Patient Total time spent is greater than 50% in coordination of care (as documented) at patient's floor/unit and/or counseling patient: 25 - 35 minutes Plan of Care Discussed with: patient Internal Medicine: Result - Labs CBC & Chem 7: 02/16/18 05:24 02/16/18 05:24 Labs: Short CBC 02/15/18 02/16/18 Range/Units 11:34 05:24 WBC 16.4 H D 9.5 (4.3-11.1) K/mcL Hgb 12.6 11.1 L D (11.5-15.4) g/dL Hct 35.9 33.7 L (35.3-44.9) % Plt Count 291 D 259 (140-400) K/mcL Neutrophils # 12.1 H 6.3 (1.6-8.9) K/mcL BMP 02/15/18 02/16/18 11:34 05:24 Sodium 131 L D 131 L Potassium 4.4 3.4 L Chloride 102 101 Carbon Dioxide 21 L 22 L BUN 4 L 5 L Creatinine 0.36 L 0.44 L Glucose 146 H 175 H Calcium 8.6 8.4 L - ABG Interpretation ABG results: PT/INR, D-dimer PT 13.2 Seconds (9.4-12.1) H 02/13/18 15:46 Consult Discharge Plan - Plan Referrals: Ami Romero MD [Primary Care Provider] - 02/25/18 4:30 pm (1) T2DM (type 2 diabetes mellitus) Qualifiers: Diabetes mellitus [facility] insulin use: with [facility] use Diabetes mellitus complication status: with ketoacidosis Diabetes mellitus complication detail: without coma Qualified Code(s): E11.10 - Type 2 diabetes mellitus with ketoacidosis without coma; Z79.4 - [facility] (current) use of insulin (2) HTN (hypertension) Qualifiers: Hypertension type: essential hypertension Qualified Code(s): I10 - Essential (primary) hypertension (5) Leucocytosis Qualifiers: Leukocytosis type: unspecified Qualified Code(s): D72.829 - Elevated white blood cell count, unspecified (9) Acute pancreatitis Qualifiers: Pancreatitis type: other Acute pancreatitis complication: unspecified Qualified Code(s): K85.80 - Other acute pancreatitis without necrosis or infection
--- NOTE | 2018-02-16 12:57 | Nephrology Progress Note ---
Date of Encounter: 02/16/18 Time of Encounter: 12:00 - Assessment and Plan (1) Hyponatremia Current Visit: Yes Status: Acute (2) HTN (hypertension) Current Visit: No Status: Chronic Qualifiers: Hypertension type: essential hypertension Qualified Code(s): I10 - Essential (primary) hypertension (3) Bipolar 1 disorder Current Visit: No Status: Chronic (4) Hyperglycemia Current Visit: Yes Status: Acute (5) Acute pancreatitis Current Visit: Yes Status: Acute Qualifiers: Pancreatitis type: other Acute pancreatitis complication: unspecified Qualified Code(s): K85.80 - Other acute pancreatitis without necrosis or infection Subjective Interval history: Pt seen and examined feeling better today with minimal GI symptoms but still NPO. Still on insulin with IVF Objective - Vital Signs Vital signs: Vital Signs Temp Pulse Resp BP Pulse Ox 02/16/18 11:44 98.4 F 83 18 147/90 97 02/16/18 06:30 79 16 117/67 98 02/16/18 03:28 98.6 F 75 16 130/86 98 02/15/18 23:46 98.2 F 79 16 132/76 97 02/15/18 19:29 98.6 F 90 20 146/91 98 02/15/18 16:58 98.2 F 86 18 134/81 100 Intake and Output 02/15/18 02/16/18 02/16/18 23:59 07:59 15:59 Intake Total 724.7 / 724.7 113.0 / 113.0 1492.4 / 1492.4 Output Total 600 / 600 Balance 724.7 / 724.7 113.0 / 113.0 892.4 / 892.4 Intake: IV Fluids 724.7 / 724.7 113.0 / 113.0 1012.4 / 1012.4 D5% And 0.45% Nacl 1000 Ml Bag 1000 / 1000 1,000 ML @ 75 mls/hr IVC . [id number] [facility] Rx#:[id number] KCl 20mEq in D5-0.9 NaCl 20 meq 585 / 585 In 1,000 ml @ 75 mls/hr IVC . [id number] [facility] Rx#:[id number] HumuLIN R 100 UNIT In 0.9 % 39.7 / 39.7 13.0 / 13.0 12.4 / 12.4 Sodium Chloride 100 ML @ 1 UNIT /HR 1.01 mls/hr IVC CONT [facility] Rx #:[id number] Zosyn 3.375 GM In 0.9 % Sodium 100 / 100 100 / 100 Chloride (Mini-Bag +) 100 ML @ 25 mls/hr IVPB Q8HR [facility] Rx#: [id number] Oral 480 / 480 Output: Urine 600 / 600 Other: Meal Breakfast Percent of Meal Consumed 100% Weight 85.5 kg Blood Glucose* 131 183 242 Patient Weight 02/16/18 23:59 Weight 85.5 kg - Lab 02/16/18 05:24 02/16/18 05:24 Most recent lab results Calcium 8.4 mg/dL (8.6-10.3) L 02/16/18 05:24 Phosphorus 2.8 mg/dL (2.7-4.5) 02/13/18 02:53 Magnesium 1.4 mg/dL (1.6-2.6) L 02/13/18 02:53 Urine Creatinine 15 mg/dL 02/12/18 17:20 Urine Sodium 240.8 mEq/L 02/14/18 12:05 Consult Discharge Plan - Plan Referrals: Ami Romero MD [Primary Care Provider] - 02/25/18 4:30 pm
[2018-02-16] MEDS: Lisinopril 20 MG TABLET PO SCH (13:20)
[2018-02-16] MEDS: Gabapentin 300 MG CAPSULE PO SCH ×2 (17:14→20:42)
[2018-02-16] MEDS: Famotidine 20 MG TABLET PO SCH (17:14)
[2018-02-16] MEDS: *HR* LORazepam 0.5 MG TABLET PO SCH (20:42)
[2018-02-16] MEDS ORDERED: Insulin DETEMIR 100 UNIT/ML X5UNITS SQ SCH (21:00)
[2018-02-16] MEDS ORDERED: Insulin LISPRO 300 UNITS/3 ML VIAL SQ SCH (21:00)
[2018-02-16] MEDS ORDERED: Ziprasidone 20 MG CAPSULE PO SCH (21:00)
[2018-02-17] MEDS: *HR* Heparin 5,000 UNIT/ML VIAL SQ SCH (05:52)
[2018-02-17 07:08] VITALS: BP 113/66
[2018-02-17 07:08] LABS: BUN/Creatinine Ratio 12 (6-26); Blood Urea Nitrogen 5 mg/dL (6-20); Calcium 8.7 mg/dL (8.6-10.3); Carbon Dioxide 26 mEq/L (23-29); Chloride 102 mEq/L (98-107); Chol/HDL Ratio 30.9 (0-4.9); Cholesterol 463 mg/dL (< 200); Glucose 166 mg/dL (70-105); HDL Cholesterol 15 mg/dL (40-59); Osmolality,Calculated 275 (280-300); Potassium 3.7 mEq/L (3.5-5.1); Sodium 132 mEq/L (136-145); Triglycerides 726 mg/dL (< 150); eGFR For Non-African Americans > 60 (> 60)
[2018-02-17] MEDS: *HR* LORazepam 0.5 MG TABLET PO SCH (07:51)
[2018-02-17] MEDS: Gabapentin 300 MG CAPSULE PO SCH (07:51)
[2018-02-17] MEDS: Lisinopril 20 MG TABLET PO SCH (07:51)
[2018-02-17] MEDS: Famotidine 20 MG TABLET PO SCH (07:51)
[2018-02-17] MEDS: Insulin LISPRO 300 UNITS/3 ML VIAL SQ SCH (07:52)
[2018-02-17] MEDS ORDERED: Ziprasidone 20 MG CAPSULE PO SCH (09:00)
[2018-02-17] MEDS ORDERED: Fenofibrate 54 MG TABLET PO SCH ×2 (09:00→09:45)
[2018-02-17] MEDS ORDERED: Venlafaxine XR (24 HR) 150 MG CAP.ER.24H PO SCH (09:00)
--- NOTE | 2018-02-17 09:49 | Discharge Summary ---
- NOTES TO OUTPATIENT PROVIDER Notes to Outpatient Provider: 1. Follow up lipid profile with PCP as pt has triglyceride level over 4000 on admission. Atorvastatin, Fenofibrate, and omega- 3 was prescribed on discharge. also needs better glucose control, insulin prescribed. Orders not resulted at time of discharge: Pending orders 02/18/18 04:00 Triglycerides AM 0400 02/14/18 06:53 JAK2 (V617F) Mutation by PCR AM 0400 02/14/18 09:55 Culture,Blood [BC] Routine 02/14/18 11:00 US abd pelvis doppler [US] Routine Date of Encounter: 02/17/18 Time of Encounter: 09:00 - Discharge Diagnosis (1) T2DM (type 2 diabetes mellitus) Priority: Primary Status: Acute Qualifiers: Diabetes mellitus [employer] insulin use: with [facility] use Diabetes mellitus complication status: with ketoacidosis Diabetes mellitus complication detail: without coma Qualified Code(s): E11.10 - Type 2 diabetes mellitus with ketoacidosis without coma; Z79.4 - [facility] (current) use of insulin (2) HTN (hypertension) Priority: Secondary Status: Chronic Qualifiers: Hypertension type: essential hypertension Qualified Code(s): I10 - Essential (primary) hypertension (3) Bipolar 1 disorder Priority: Secondary Status: Chronic (4) Anxiety Priority: Secondary Status: Chronic (5) Leucocytosis Priority: Primary Status: Acute Qualifiers: Leukocytosis type: unspecified Qualified Code(s): D72.829 - Elevated white blood cell count, unspecified (6) Hypertriglyceridemia Priority: Primary Status: Acute (7) Hyponatremia Priority: Primary Status: Acute (8) Medical non-compliance Priority: Primary Status: Acute (9) Acute pancreatitis Priority: Primary Status: Acute Qualifiers: Pancreatitis type: other Acute pancreatitis complication: unspecified Qualified Code(s): K85.80 - Other acute pancreatitis without necrosis or infection Hospital course: Ms. James is a 42 year old female admitted for abdominal pain. Patient was found elevated lipase, consider acute pancreatitis. Further testing shows patient has hypertriglyceridemia which is the reason of acute pancreatitis. Patient was treated with nothing by mouth, IV fluid, IV insulin for hypertriglyceridemia. Her condition has improved. Patient is noncompliance with her medication and not take hyperlipidemia medication for about 1 year. Patient was educated to be compliant to her medication. After treatment, patient's abdominal pain resolved, no nausea vomiting, tolerate regular diet. Lipase level get down to normal level. Triglyceride level get down as well. Will discharge patient on by mouth medication to reduce hypertriglyceridemia. Continue follow-up with PCP as outpatient. I have seen and examined this patient today. Patient is awake alert, oriented 3. No complaint. Denies nausea vomiting abdominal pain. No tenderness on palpationduring physical exam. Vitals are stable. Stable to discharge home and follow-up closely with PCP as outpatient. Prescription of hyperlipidemia medication and insulin was given to patient. Will also prescribe glucometer and strips. Discharge discussed with: patient - Time Spent with Patient Total time spent providing and/or coordinating discharge services: 40 min Greater than 30 minutes - Discharge Medications Prescriptions: Atorvastatin [Lipitor] 80 mg PO HS 30 Days #60 tablet Fenofibrate [Tricor] 108 mg PO DAILY 30 Days #60 tablet Insulin DETEMIR [Levemir] 20 unit SQ HS 30 Days #120 [id number] Insulin LISPRO [HumaLOG] 7 units SQ TIDAC 30 Days #10 vial Home Medications: Gabapentin [Neurontin] 300 mg PO TID 03/04/15 [History] Lisinopril [Zestril] 20 mg PO QAM 03/04/15 [History] Metoprolol [Lopressor] 50 mg PO BID 03/04/15 [History] Ziprasidone HCl [Geodon] 40 mg PO QAM 03/04/15 [History] Venlafaxine HCl [Venlafaxine HCl ER] 150 mg PO DAILY 01/31/18 [History] Ziprasidone HCl [Geodon] 60 mg PO HS 01/31/18 [History] raNITIdine HCl [Zantac] 150 mg PO BID 01/31/18 [History] LORazepam [Ativan] 0.5 mg PO BID 02/13/18 [History] Alcohol Antiseptic Pads [Alcohol Pads] 1 each ACHS 100 Days #400 med..pad 02/17/18 [Rx] Atorvastatin [Lipitor] 80 mg PO HS 30 Days #60 tablet 02/17/18 [Rx] Blood Sugar Diagnostic [Blood Glucose Test Strip] 1 each ACHS 100 Days #400 strip 02/17/18 [Rx] Blood-Glucose Meter [Accu-Chek Guide Monitor System] 1 each ACHS #1 each 02/17/18 [Rx] Fenofibrate [Tricor] 108 mg PO DAILY 30 Days #60 tablet 02/17/18 [Rx] Fish Oil/Borage/Flax/Om3,6,9#1 [[place] 3-6-9 1,200 mg Softgel] 1,200 mg PO DAILY 120 Days #120 capsule 02/17/18 [Rx] Insulin DETEMIR [Levemir] 20 unit SQ HS 30 Days #120 [id number] 02/17/18 [Rx] Insulin LISPRO [HumaLOG] 7 units SQ TIDAC 30 Days #10 vial 02/17/18 [Rx] Lancets [Blood Lancets] 1 each ACHS 100 Days #400 each 02/17/18 [Rx] Allergies/Adverse Reactions: Allergy/AdvReac Type Severity Reaction Status Date / Time No Known Drug Allergies Allergy See Verified 03/04/15 10:49 Comments Date of admission: 02/14/18 08:30 Primary care physician: Ami Romero MD Consults: 02/13/18 08:11 Consult to Nephrology [CONS] Routine Consulting Provider: Kidney Do/DAVID/SALAS/LAURYN Reason for Consult: Hyponatremia, history of diabetes. Call completed, spoke with Dr. Cabrera Time Notified: 08:15 Call Completed: Yes 02/13/18 14:34 Consult to Surgery [CONS] Routine Consulting Provider: Ramone White Reason for Consult: acute pancreatitis Call Completed: Yes 02/13/18 14:42 Consult to Oncology [CONS] Routine Consulting Provider: [facility] Reason for Consult: splenomealy concern to splenic thrombosis Call Completed: Yes Discharging clinician: Cally Roberto Anticipated date of discharge: 02/17/18 - Constitutional Vitals: Temp Pulse Resp BP Pulse Ox 97.8 F 86 18 113/66 98 02/17/18 07:06 02/17/18 07:06 02/17/18 07:06 02/17/18 07:06 02/17/18 07:06 Exam: Exam: EXAM: General: Alert, oriented 4, not in distress HEENT: Moist mucosa, not pale, normal neck inpsection Chest: R port, clean dressing Cardiovascular: Normal S1 & S2, No JVD. Pulse regular. Lungs: scattered R rhonchi Abdomen: Soft, Nontender. no-distended, no rebound or guarding Neurological: grossly non-focal, no focal deficits, alert, oriented, moves all limbs spontaneously Extremities: No pedal edema Psych: Appropriate affect - Patient Status Disposition: Home, Self-Care Condition: Good Overall status at discharge: patient is back to baseline - Discharge Instructions Follow Up With: Ami Romero MD [Primary Care Provider] - 02/25/18 4:30 pm - Diet and Activity Activity: increase activity as tolerated Diet: low fat, low cholesterol
== END 2018-02-17 11:27 | disposition home or self-care (01) | DRG 637 ==
LOC: EMEROOARM 16:05 → 2ANU 16:05 → 2NNU 02-13 03:58
PROVIDERS: ADMIT Family Medicine; ATTEND Family Medicine